=== PATIENT | female | born 1955 | race African-American/Black ===

== ENCOUNTER 2017-04-29 19:34 | Observation (INO) | payer OTHER ==
[~2017-04-29 19:34] MED LIST: ALPR0.25 PO; GABA300C3 PO; LANTUSP SQ; LISI10TA PO; METH750T2 PO; NOVOLOGP2 SQ; TYLE3 PO
[2017-04-29 19:37] VITALS: BP 178/81; PULSE 110; RESP 20; TEMP 98.3
[2017-04-29] MEDS ORDERED: HYDR12.57 PO (20:08)
[2017-04-29] MEDS ORDERED: CLON0.1D T-DERMAL (20:08)
[2017-04-29] MEDS ORDERED: METH750T PO (20:08)
[2017-04-29] MEDS ORDERED: MELO7.5T27 PO (20:08)
[2017-04-29] MEDS ORDERED: GABA300C5 PO (20:08)
[2017-04-29] MEDS ORDERED: NOVOLOGP2 SQ (20:08)
[2017-04-29] MEDS ORDERED: LANTUS2P SQ (20:08)
[2017-04-29] MEDS ORDERED: LISI40TA PO (20:08)
[2017-04-29] MEDS ORDERED: AMLO10TA2 PO (20:12)
[2017-04-29] MEDS ORDERED: FURO40TA PO (20:12)
[2017-04-29 20:20] VITALS: PULSE 106; O2SAT 98
[2017-04-29] MEDS ORDERED: RESP: IPRATROPIUM 0.5 MG/2.5 ML NEB NEB ONE (20:30)
[2017-04-29 20:43] LABS: AUTOMATED NEUTROPHIL # 5.1 TH/MM3 (1.8-7.7); BASOPHIL # 0.1 TH/MM3 (0-0.2); BASOPHIL % 0.9 % (0.0-2.0); EOSINOPHIL # 0.2 TH/MM3 (0-0.4); EOSINOPHIL % 2.7 % (0.0-4.0); HEMATOCRIT 32.6 % (35.0-46.0); HEMOGLOBIN 10.8 GM/DL (11.6-15.3); LYMPH % 24.7 % (9.0-44.0); LYMPHOCYTE # 1.9 TH/MM3 (1.0-4.8); MEAN CELL VOLUME 86.8 FL (80.0-100.0); MEAN CORPUSCULAR HEMOGLOBIN 28.7 PG (27.0-34.0); MEAN PLATELET VOLUME 8.1 FL (7.0-11.0); MONOCYTE # 0.6 TH/MM3 (0-0.9); NEUT % 63.7 % (16.0-70.0); PLATELET COUNT 320 TH/MM3 (150-450); RED BLOOD COUNT 3.76 MIL/MM3 (4.00-5.30); RED CELL DISTRIBUTION WIDTH 13.5 % (11.6-17.2); WHITE BLOOD COUNT 7.9 TH/MM3 (4.0-11.0)
[2017-04-29 20:55] LABS: CHLORIDE 109 MEQ/L (98-107); SODIUM (NA) 141 MEQ/L (136-145)
[2017-04-29 20:58] LABS: CALCIUM 8.6 MG/DL (8.5-10.1)
--- NOTE | 2017-04-29 20:58 | PD ---
HPI Chief Complaint: Respiratory Symptoms Time Seen by Provider: 19:54 Travel History International Travel<30 days: No Contact w/Intl Traveler<30days: No Traveled to known affect area: No History of Present Illness HPI Patient is a 61-year-old female who said for the last 2 weeks she has been having shortness of breath congestion blowing snot out of her nose Discrene feeling short of breath. She has not seen another doctor because recently she lost her [place] health insurance and now has at night and is scheduled to see a Dr. Ludwig coming up. She is a history of hypertension she is on lisinopril hydrochlorothiazide and furosemide she said she was changed back in January from the combination lisinopril hydrochlorothiazide to just lisinopril and Norvasc now she is having chronic venous stasis like fluid in her lower extremities bilateral in spite of the diuretics. She also is on insulin for diabetes she is on gabapentin for peripheral neuropathy in the ER her main complaint is shortness of breath she says it could be related to the stress she has been under since her mother last May now it is coming up on the year anniversary her sister is bedside she does not appear toxic she does not appear in respiratory distress she does not appear to have any signs of respiratory issues at this time satting 98 on room air [facility] Past Medical History Cardiovascular Problems: Yes (HTN) High Cholesterol: Yes COPD: Yes Diabetes: Yes Patient Takes Glucophage: No Diminished Hearing: No Endocrine: Yes Gastrointestinal Disorders: No Headaches: Yes Hypertension: Yes Immune Disorder: No Musculoskeletal: Yes Neurologic: Yes Respiratory: Yes Influenza Vaccination: Yes ?: Not Menopausal: Yes : 0 Past Surgical History Abdominal Surgery: Yes (PARTIAL HYSTERECTOMY) Gynecologic Surgery: Yes (EXP LAP) Hysterectomy: Yes (PARTIAL) Other Surgery: Yes Social History Alcohol Use: Yes (OCCASIONALLY) Tobacco Use: No Substance Use: No Allergies-Medications (Allergen,Severity, Reaction): Coded Allergies: insulin glargine (Unverified Adverse Reaction, Intermediate, Edema, 04/29/17 ) PT STATES NOT ANY REACTION & HER DR HAS PLACED HER BACK ON LANTUS WITH NO SIDE EFFECTS Reported Meds & Prescriptions Reported Meds & Active Scripts Active Reported Amlodipine (Amlodipine Besylate) 10 Mg Tab 10 Mg PO DAILY Furosemide 40 Mg Tab 40 Mg PO DAILY Clonidine 168 HR Patch (Clonidine HCl) 0.1 Mg/24 Hr Patch 1 Patch T-DERMAL Q7D Meloxicam 7.5 Mg Tab 7.5 Mg PO DAILY Methocarbamol 750 Mg Tab 750 Mg PO BID Hydrochlorothiazide 12.5 Mg Cap 12.5 Mg PO DAILY Lisinopril 40 Mg Tab 40 Mg PO DAILY Lantus Inj (Insulin Glargine) 1,000 Unit/10 Ml Vial 12 Units SQ HS Novolog Inj (Insulin Aspart) 1,000 Unit/10 Ml Vial 0 SQ DIRECTED Sliding Scale as directed. Gabapentin 300 Mg Cap 300 Mg PO HS Review of Systems Except as stated in HPI: all other systems reviewed are Neg Respiratory: Positive: Cough, Shortness of Breath, Other (Coughing up green mucus also snot coming from her nose is greenish) Physical Exam Narrative GENERAL: Patient is awake alert nontoxic appearing no signs of respiratory distress O2 sat is 98 SKIN: Warm and dry. HEAD: Atraumatic. Normocephalic. EYES: Pupils equal and round. No scleral icterus. No injection or drainage. ENT: No nasal bleeding or discharge. Mucous membranes pink and moist. NECK: Trachea midline. No JVD. CARDIOVASCULAR: slightly tachy rate and rhythm. RESPIRATORY: No accessory muscle use. Clear to auscultation. Breath sounds equal bilaterally. no rales no wheeze no crackle heard GASTROINTESTINAL: Abdomen soft, non-tender, nondistended. Hepatic and splenic margins not palpable. MUSCULOSKELETAL: Extremities without clubbing, cyanosis, or edema. No obvious deformities. NEUROLOGICAL: Awake and alert. No obvious cranial nerve deficits. Motor grossly within normal limits. Five out of 5 muscle strength in the arms and legs. Normal speech. PSYCHIATRIC: Appropriate mood and affect; insight and judgment normal. Data Data Last Documented VS Vital Signs Date Time Temp Pulse Resp B/P (MAP) Pulse Ox O2 Delivery O2 Flow Rate FiO2 04/29/17 22:20 105 18 155/80 (105) 98 Room Air 04/29/17 19:37 98.3 Orders Orders Complete Blood Count With Diff (04/29/17 20:23) Comprehensive Metabolic Panel (04/29/17 20:23) Lipase (04/29/17 20:23) Ua Includes Microscopic (04/29/17 20:23) Thyroid Stimulating Hormone (04/29/17 20:23) Chest, Pa & Lat (04/29/17 20:23) D-Dimer (04/29/17 20:23) Ipratropium Neb (Atrovent Neb) (04/29/17 20:30) Influenzae A/B Antigen (04/29/17 20:23) Group A Rapid Strep Screen (04/29/17 20:23) B-Type Natriuretic Peptide (04/29/17 20:49) Strep Culture (Group A) (04/29/17 20:20) Troponin I (04/29/17 20:40) Sodium Chlor 0.9% 250 Ml Inj (Ns 250 Ml (04/29/17 22:30) Furosemide Inj (Lasix Inj) (04/29/17 22:45) Ct Pulmonary Angiogram (04/29/17 ) Ketorolac Inj (Toradol Inj) (04/29/17 22:45) Iohexol 350 Inj (Omnipaque 350 Inj) (04/29/17 23:11) Labs Laboratory Tests Test 04/29/17 20:40 04/29/17 20:55 04/29/17 21:00 White Blood Count 7.9 TH/MM3 Red Blood Count 3.76 MIL/MM3 Hemoglobin 10.8 GM/DL Hematocrit 32.6 % Mean Corpuscular Volume 86.8 FL Mean Corpuscular Hemoglobin 28.7 PG Mean Corpuscular Hemoglobin Concent 33.0 % Red Cell Distribution Width 13.5 % Platelet Count 320 TH/MM3 Mean Platelet Volume 8.1 FL Neutrophils (%) (Auto) 63.7 % Lymphocytes (%) (Auto) 24.7 % Monocytes (%) (Auto) 8.0 % Eosinophils (%) (Auto) 2.7 % Basophils (%) (Auto) 0.9 % Neutrophils # (Auto) 5.1 TH/MM3 Lymphocytes # (Auto) 1.9 TH/MM3 Monocytes # (Auto) 0.6 TH/MM3 Eosinophils # (Auto) 0.2 TH/MM3 Basophils # (Auto) 0.1 TH/MM3 CBC Comment DIFF FINAL Differential Comment Blood Urea Nitrogen 19 MG/DL Creatinine 0.96 MG/DL Random Glucose 92 MG/DL Total Protein 6.9 GM/DL Albumin 2.6 GM/DL Calcium Level 8.6 MG/DL Alkaline Phosphatase 131 U/L Aspartate Amino Transf (AST/SGOT) 40 U/L Alanine Aminotransferase (ALT/SGPT) 52 U/L Total Bilirubin 0.2 MG/DL Sodium Level 141 MEQ/L Potassium Level 3.7 MEQ/L Chloride Level 109 MEQ/L Carbon Dioxide Level 23.8 MEQ/L Anion Gap 8 MEQ/L Estimat Glomerular Filtration Rate 72 ML/MIN Troponin I 0.02 NG/ML B-Type Natriuretic Peptide 41 PG/ML Lipase 145 U/L Thyroid Stimulating Hormone 3rd Gen 4.150 uIU/ML Urine Color YELLOW Urine Turbidity CLEAR Urine pH 5.5 Urine Specific [place] GREATER/EQUAL 1.030 Urine Protein 100 mg/dL Urine Glucose (UA) NEG mg/dL Urine Ketones NEG mg/dL Urine Occult Blood SMALL Urine Nitrite NEG Urine Bilirubin NEG Urine Urobilinogen 0.2 MG/DL Urine Leukocyte Esterase NEG Urine RBC 0-3 /hpf Urine WBC 6-8 /hpf Urine Squamous Epithelial Cells 0-5 /hpf Microscopic Urinalysis Comment CULT NOT INDICATED D-Dimer Quantitative (PE/DVT) 0.94 MG/L FEU MDM Medical Decision Making Medical Screen Exam Complete: Yes Emergency Medical Condition: Yes Differential Diagnosis Differential diagnosis includes bronchitis versus CHF versus COPD versus pneumonia versus anxiety versus asthma Narrative Course Chest x-ray shows bilateral lower lobe congestion she has a d-dimer that is elevated 0.94 and I do a CTA which shows areas of edema her white count is only 7.9 I decided this must be CHF even though her BNP is only 41 and decided to give her Lasix and I admit her for management of CHF CT is read as pulmonary edema patches and not pneumonia Diagnosis Primary Impression: Pulmonary edema Qualified Codes: J81.0 - Acute pulmonary edema Admitting Information Admitting Physician Requests: Observation Gregorio Dickson MD Apr 29, 2017 20:58
[2017-04-29 20:59] LABS: ALBUMIN 2.6 GM/DL (3.4-5.0); BICARBONATE 23.8 MEQ/L (21.0-32.0); BLOOD UREA NITROGEN 19 MG/DL (7-18); GLUCOSE,RANDOM 92 MG/DL (74-106)
[2017-04-29 21:01] LABS: ALT (GPT) 52 U/L (10-53); AST (GOT) 40 U/L (15-37)
[2017-04-29 21:02] LABS: CREATININE 0.96 MG/DL (0.50-1.00); GLOMERULAR FILTRATION RATE 72 ML/MIN (>89)
[2017-04-29 21:03] LABS: TOTAL BILIRUBIN ADULT 0.2 MG/DL (0.2-1.0); TOTAL PROTEIN 6.9 GM/DL (6.4-8.2)
[2017-04-29 21:04] LABS: ALKALINE PHOSPHATASE 131 U/L (45-117)
[2017-04-29 21:08] LABS: BILIRUBIN, URINE NEG (NEG); BLOOD, URINE SMALL (NEG); GLUCOSE,URINE NEG (NEG); KETONE, URINE NEG (NEG); NITRITE,URINE NEG (NEG); PH, URINE 5.5 (5.0-8.5); URINE COLOR YELLOW (YELLW/STRAW); URINE LEUKOCYTE ESTERASE NEG (NEG)
[2017-04-29 21:17] LABS: RBC, URINE 0-3 /hpf (0-3); SQUAMOUS EPITHELIAL CELL URINE 0-5 /hpf (0-5)
[2017-04-29 21:28] LABS: TROPONIN I 0.02 NG/ML (0.02-0.05)
--- NOTE | 2017-04-29 22:03 | RADRPT ---
EXAM DATE/TIME: 04/29/2017 20:40 [facility] COMPARISON: No previous studies available for comparison. INDICATIONS : Cough. Short of breath. MEDICAL HISTORY : Diabetes mellitus type II. Hypertension SURGICAL HISTORY : None. ENCOUNTER: Initial ACUITY: 2 days PAIN SCORE: 0/10 LOCATION: Bilateral chest FINDINGS: There are patchy areas of opacity in the central and lower lungs bilaterally causing loss of delineat ion of the bronchopulmonary markings suggesting an airspace process. Both hemidiaphragms are well de lineated. The heart is normal in size. CONCLUSION: Non-consolidative air space opacities in the central and lower lungs bilaterally suggest possible pul monary edema. aMrc Gonzales MD on April 29, 2017 at 22:01 Board Certified Radiologist. This report was verified electronically.
[2017-04-29 22:20] VITALS: BP 155/80; PULSE 105; RESP 18; O2SAT 98
[2017-04-29] MEDS ORDERED: SODIUM CHLOR 0.9% 250 ML INJ 250 ML IV ONE (22:30)
[2017-04-29] MEDS ORDERED: FUROSEMIDE 40 MG/4 ML VIAL IV PUSH ONE (22:45)
[2017-04-29] MEDS ORDERED: KETOROLAC TROMETHAMINE 30 MG/ML (IVP) VIAL IV PUSH ONE (22:45)
[2017-04-29] MEDS ORDERED: IOHEXOL 350 MG/ML 10 ML VIAL (for RAD DIAG) IVCONTRAST ONE (23:11)
--- NOTE | 2017-04-29 23:19 | RADRPT ---
EXAM DATE/TIME: 04/29/2017 22:58 [facility] COMPARISON: No previous studies available for comparison. INDICATIONS : Cough and shortness of breath X 3 days; rule out pulmonary embolus. IV CONTRAST: 73 cc Omnipaque 350 (iohexol) IV RADIATION DOSE: 13.32 CTDIvol (mGy) MEDICAL HISTORY : Hypertension. Chronic obstructive pulmonary disease. Diabetes mellitus type 1. SURGICAL HISTORY : Hysterectomy. ENCOUNTER: Initial ACUITY: 3 days PAIN SCALE: 3/10 LOCATION: chest TECHNIQUE: Volumetric scanning of the chest was performed using a pulmonary embolism protocol MIP images were re constructed. Using automated exposure control and adjustment of the mA and/or kV according to patien t size, radiation dose was kept as low as reasonably achievable to obtain optimal diagnostic quality images. DICOM format image data is available electronically for review and comparison. Follow-up recommendations for detected pulmonary nodules are based at a minimum on nodule size and pa tient risk factors according to Fleischner Society Guidelines. FINDINGS: PULMONARY ARTERIES: No filling defects are seen in the pulmonary arteries through the segmental level. LUNGS: Patchy areas of increased substance in the upper lobes bilaterally, the largest areas anterolateral i n the left upper lobe measuring 5.6 cm. There is also hazy increased substance in the lower lobes bi laterally stop non-consolidative infiltrates and the costophrenic angles bilaterally. PLEURAE: Moderate-sized right pleural effusion measuring 1.8 cm and small left 7 mm. MEDIASTINUM: There is good visualization of the great vessels of the middle mediastinum. No evidence of mediastin al or hilar adenopathy/mass. CONCLUSION: 1. Negative for pulmonary embolism. 2. Patchy areas of increased substance throughout both lungs and bilateral pleural effusions suggest pulmonary edema. Marc Gonzales MD on April 29, 2017 at 23:15 Board Certified Radiologist. This report was verified electronically.
[2017-04-30] VITALS (12 sets, daily range): BP systolic 136–159; BP diastolic 63–80; PULSE 93–119; RESP 17–20; TEMP 96.8–98.7; O2SAT 94–99
[2017-04-30] MEDS ORDERED: DEXTROSE 50% IN WATER 50 ML VIAL(D50) IV PUSH PRN (00:15)
[2017-04-30] MEDS ORDERED: RESP: ALBUTEROL 2.5 MG/IPRATROPIUM 0.5 MG NEB (PRN) INH (00:15)
[2017-04-30] MEDS ORDERED: GLUCAGON 1 MG/ML VIAL OTHER PRN (00:15)
[2017-04-30] MEDS ORDERED: cefTRIAXone INJ 1,000 MG in SODIUM CHLORIDE 0.9% INJ 100 ML IV SCH (00:15)
[2017-04-30] MEDS ORDERED: ACETAMINOPHEN 325 MG TAB PO PRN (00:15)
[2017-04-30] MEDS ORDERED: SODIUM CHLORIDE 0.9% FLUSH 10 ML FLUSH IV FLUSH PRN (00:15)
[2017-04-30] MEDS ORDERED: cloNIDine HCL 0.1 MG/24 HR PATCH T-DERMAL SCH (00:30)
[2017-04-30] MEDS ORDERED: AZITHROMYCIN INJ 500 MG in SODIUM CHLOR 0.9% 250 ML INJ 250 ML IV SCH (01:00)
[2017-04-30] MEDS: HEPARIN SODIUM - SQ 10,000 UNITS/ML VIAL SQ SCH ×3 (01:00→16:42)
[2017-04-30] MEDS: RESP: ALBUTEROL 2.5 MG/IPRATROPIUM 0.5 MG NEB (SCH) INH ×4 (04:30→20:31)
[2017-04-30] MEDS: INSULIN ASPART SUPPLEMENTAL SCALE SQ SCH ×4 (08:00→20:52)
[2017-04-30] MEDS: METHOCARBAMOL 500 MG TAB PO SCH ×2 (08:37→20:47)
[2017-04-30] MEDS: LISINOPRIL 20 MG TAB PO SCH (08:52)
[2017-04-30] MEDS: SODIUM CHLORIDE 0.9% FLUSH 10 ML FLUSH IV FLUSH SCH ×2 (08:53→20:47)
[2017-04-30] MEDS ORDERED: FUROSEMIDE 20 MG/2 ML VIAL IV PUSH SCH ×2 (09:00)
--- NOTE | 2017-04-30 09:28 | HHI.HP ---
HPI Service [facility] Primary Care Physician Shabbir Ludwig M.D. Admission Diagnosis pulmonary edema Diagnoses: Chief Complaint: Shortness of breath Travel History International Travel<30 Days: No Contact w/Intl Traveler <30 Da: No Traveled to Known Affected Are: No History of Present Illness Ms. Rivera is a pleasant 61-year-old -[place] female with history of diabetes mellitus, hypertension who presented to the emergency department on 04/30 due to shortness of breath, congestion that started about 2 weeks prior to this admission. She reports green colored sputum production. Subjective low -grade fever. Denies any abdominal pain, constipation or diarrhea. No changes in bladder habits. She denies any chest pain. On arrival, temperature 98.3F, pulse 110, respiratory rate 20, blood pressure 178/81. Chest x-ray and CT angiogram was done. Imaging studies indicate pulmonary edema. No pulmonary embolism. WBC 7.9, hemoglobin 10.8, platelets 320. BNP 41. Patient was given Lasix. Review of Systems Except as stated in HPI: all other systems reviewed are Neg Past Family Social History Past Medical History HTN, DM Past Surgical History Partial hysterectomy Reported Medications Amlodipine (Amlodipine Besylate) 10 Mg Tab 10 Mg PO DAILY Furosemide 40 Mg Tab 40 Mg PO DAILY Clonidine 168 HR Patch (Clonidine HCl) 0.1 Mg/24 Hr Patch 1 Patch T-DERMAL Q7D Meloxicam 7.5 Mg Tab 7.5 Mg PO DAILY Methocarbamol 750 Mg Tab 750 Mg PO BID Hydrochlorothiazide 12.5 Mg Cap 12.5 Mg PO DAILY Lisinopril 40 Mg Tab 40 Mg PO DAILY Lantus Inj (Insulin Glargine) 1,000 Unit/10 Ml Vial 12 Units SQ HS Novolog Inj (Insulin Aspart) 1,000 Unit/10 Ml Vial 0 SQ DIRECTED Sliding Scale as directed. Gabapentin 300 Mg Cap 300 Mg PO HS Allergies: Coded Allergies: insulin glargine (Unverified Adverse Reaction, Intermediate, Edema, 04/29/17 ) PT STATES NOT ANY REACTION & HER DR HAS PLACED HER BACK ON LANTUS WITH NO SIDE EFFECTS Family History Mother - HTN, heart disease Social History Does not smoke. Occasional drinker. Physical Exam Vital Signs Vital Signs Date Time Temp Pulse Resp B/P (MAP) Pulse Ox O2 Delivery O2 Flow Rate FiO2 04/30/17 09:04 94 21 04/30/17 07:45 04/30/17 06:59 98.7 100 17 159/80 (106) 99 Nasal Cannula 2.00 04/30/17 06:03 97.7 96 18 157/77 (103) 96 Nasal Cannula 2.00 04/30/17 06:03 96 Nasal Cannula 2.00 04/30/17 04:30 97 Nasal Cannula 2.00 04/30/17 01:14 98.6 108 136/71 (92) 95 Nasal Cannula 2.00 04/29/17 22:20 105 18 155/80 (105) 98 Room Air 04/29/17 20:41 Aerosol Mask 04/29/17 20:23 105 100 Room Air 04/29/17 20:20 106 98 Room Air 04/29/17 19:37 98.3 110 20 178/81 (113) Physical Exam GENERAL: This is a well-nourished, well-developed patient, in no apparent distress. SKIN: No rashes, ecchymoses or lesions. Warm and dry. HEAD: Atraumatic. Normocephalic. No temporal or scalp tenderness. EYES: Pupils equal round and reactive. No injection or drainage. ENT: Nose without bleeding, purulent drainage or septal hematoma. Airway patent. NECK: Trachea midline. No lymphadenopathy. Supple, nontender, no meningeal signs. CARDIOVASCULAR: Regular rhythm, tachycardic without murmurs, gallops, or rubs. No JVD. RESPIRATORY: Clear to auscultation. Breath sounds equal bilaterally. No wheezes , rales, or rhonchi. GASTROINTESTINAL: Abdomen soft, non-tender, nondistended. No guarding. MUSCULOSKELETAL: Extremities without clubbing, cyanosis, or edema. 1+ bilateral lower extremity edema. NEUROLOGICAL: Awake and alert. Cranial nerves II through XII intact. No focal neurological deficits. Normal speech. Laboratory Laboratory Tests Test 04/29/17 20:40 04/29/17 20:55 04/29/17 21:00 White Blood Count 7.9 Red Blood Count 3.76 Hemoglobin 10.8 Hematocrit 32.6 Mean Corpuscular Volume 86.8 Mean Corpuscular Hemoglobin 28.7 Mean Corpuscular Hemoglobin Concent 33.0 Red Cell Distribution Width 13.5 Platelet Count 320 Mean Platelet Volume 8.1 Neutrophils (%) (Auto) 63.7 Lymphocytes (%) (Auto) 24.7 Monocytes (%) (Auto) 8.0 Eosinophils (%) (Auto) 2.7 Basophils (%) (Auto) 0.9 Neutrophils # (Auto) 5.1 Lymphocytes # (Auto) 1.9 Monocytes # (Auto) 0.6 Eosinophils # (Auto) 0.2 Basophils # (Auto) 0.1 CBC Comment DIFF FINAL Differential Comment Blood Urea Nitrogen 19 Creatinine 0.96 Random Glucose 92 Total Protein 6.9 Albumin 2.6 Calcium Level 8.6 Alkaline Phosphatase 131 Aspartate Amino Transf (AST/SGOT) 40 Alanine Aminotransferase (ALT/SGPT) 52 Total Bilirubin 0.2 Sodium Level 141 Potassium Level 3.7 Chloride Level 109 Carbon Dioxide Level 23.8 Anion Gap 8 Estimat Glomerular Filtration Rate 72 Troponin I 0.02 B-Type Natriuretic Peptide 41 Lipase 145 Thyroid Stimulating Hormone 3rd Gen 4.150 Urine Color YELLOW Urine Turbidity CLEAR Urine pH 5.5 Urine Specific [place] GREATER/EQUAL 1.030 Urine Protein 100 Urine Glucose (UA) NEG Urine Ketones NEG Urine Occult Blood SMALL Urine Nitrite NEG Urine Bilirubin NEG Urine Urobilinogen 0.2 Urine Leukocyte Esterase NEG Urine RBC 0-3 Urine WBC 6-8 Urine Squamous Epithelial Cells 0-5 Microscopic Urinalysis Comment CULT NOT INDICATED D-Dimer Quantitative (PE/DVT) 0.94 Date/Time Source Procedure Growth Status 04/29/17 20:20 Throat Group A Streptococcus Screen Pending Received Result Diagram: 04/29/17203904/29/172039 Imaging Last Impressions Chest X-Ray 04/29/172022 Signed Impressions: Service Date/Time: Saturday, April 29, 2017 20:40 - CONCLUSION: Non-consolidative air space opacities in the central and lower lungs bilaterally suggest possible pulmonary edema. Marc Gonzales MD CT Angiography 04/29/17 0000 Signed Impressions: Service Date/Time: Saturday, April 29, 2017 22:58 - CONCLUSION: 1. Negative for pulmonary embolism. 2. Patchy areas of increased substance throughout both lungs and bilateral pleural effusions suggest pulmonary edema. MD Winston Jones VTE Risk Assessment Winston VTE Risk Assessment: Mod/High Risk (score >= 2) Josemanuelrini Risk Assessment Model Point Value = 1 Point Value = 2 Point Value = 3 Point Value = 5 Age 41-60 Minor surgery BMI > 25 kg/m2 Swollen legs Varicose veins or History of unexplained or recurrent spontaneous Oral contraceptives or hormone replacement Sepsis (< 1 month) Serious lung disease, including pneumonia (< 1 month) Abnormal pulmonary function Acute myocardial infarction Congestive heart failure (< 1 month) History of inflammatory bowel disease Medical patient at bed rest Age 61-74 Arthroscopic surgery Major open surgery (> 45 min) Laparoscopic surgery (> 45 min) Malignancy Confined to bed (> 72 hours) Immobilizing plaster cast Central venous access Age >= 75 History of VTE Family history of VTE Factor V Leiden Prothrombin [id number] Lupus anticoagulant Anticardiolipin antibodies Elevated serum homocysteine Heparin-induced thrombocytopenia Other congenital or acquired thrombophilia Stroke (< 1 month) Elective arthroplasty Hip, pelvis, or leg fracture Acute spinal cord injury (< 1 month) Prophylaxis Regimen Total Risk Factor Score Risk Level Prophylaxis Regimen 0-1 Low Early ambulation 2 Moderate Order ONE of the following: *Sequential Compression Device (SCD) *Heparin 5000 units SQ BID 3-4 Higher Order ONE of the following medications: *Heparin 5000 units SQ TID *Enoxaparin/Lovenox 40 mg SQ daily (WT < 150 kg, CrCl > 30 mL/min) *Enoxaparin/Lovenox 30 mg SQ daily (WT < 150 kg, CrCl > 10-29 mL/min) *Enoxaparin/Lovenox 30 mg SQ BID (WT < 150 kg, CrCl > 30 mL/min) AND/OR *Sequential Compression Device (SCD) 5 or more Highest Order ONE of the following medications: *Heparin 5000 units SQ TID (Preferred with Epidurals) *Enoxaparin/Lovenox 40 mg SQ daily (WT < 150 kg, CrCl > 30 mL/min) *Enoxaparin/Lovenox 30 mg SQ daily (WT < 150 kg, CrCl > 10-29 mL/min) *Enoxaparin/Lovenox 30 mg SQ BID (WT < 150 kg, CrCl > 30 mL/min) AND *Sequential Compression Device (SCD) Assessment and Plan Problem List: (1) Pulmonary edema ICD Code: J81.1 - Chronic pulmonary edema Status: Acute (2) Hypertension ICD Code: I10 - Essential (primary) hypertension (3) Diabetes mellitus ICD Code: E11.9 - Type 2 diabetes mellitus without complications Assessment and Plan Ms. Rivera is a pleasant 61-year-old -[place] female with a history of diabetes mellitus, hypertension who presented to the emergency department on 04/30 due to shortness of breath. Symptoms started 2 weeks ago. She does report some green colored sputum production. Low-grade subjective fever. ED workup indicated pulmonary edema. -Pulmonary edema -BNP 41. Pulmonary edema could be due to accelerated hypertension. -Patient received IV Lasix. We will switch her to p.o. torsemide. She received 40 mg of IV Lasix this morning. -Patient is currently on room air. Clinically she also reports improvement of her symptoms. -Possible pneumonia -patient was empirically started on IV azithromycin and ceftriaxone. It would be reasonable to continue Levaquin for total 7 days for suspected - Diabetes mellitus -continue home medication long-acting Levemir 12 units nightly, sliding scale insulin. Will add pre-meal insulin. - Hypertension -Continue amlodipine 10 mg daily, lisinopril 40 mg daily, torsemide 10 mg twice daily. -Currently normotensive. Full code. Heparin SQ. Discharge plan: Probable discharge in the AM 05/01/2017. Problem Qualifiers (1) Pulmonary edema: Qualified Codes: J81.0 - Acute pulmonary edema Carolyn Kelley DO Apr 30, 2017 9:28 am
[2017-04-30] MEDS ORDERED: LEVOFLOXACIN 750 MG TAB PO ONE (09:30)
--- NOTE | 2017-04-30 09:38 | HHI.PR ---
Objective Vitals Vital Signs Date Time Temp Pulse Resp B/P (MAP) Pulse Ox O2 Delivery O2 Flow Rate FiO2 04/30/17 09:04 94 21 04/30/17 07:50 96.9 93 20 156/74 (101) 96 04/30/17 07:45 04/30/17 06:59 98.7 100 17 159/80 (106) 99 Nasal Cannula 2.00 04/30/17 06:03 97.7 96 18 157/77 (103) 96 Nasal Cannula 2.00 04/30/17 06:03 96 Nasal Cannula 2.00 04/30/17 04:30 97 Nasal Cannula 2.00 04/30/17 01:14 98.6 108 136/71 (92) 95 Nasal Cannula 2.00 04/29/17 22:20 105 18 155/80 (105) 98 Room Air 04/29/17 20:41 Aerosol Mask 04/29/17 20:23 105 100 Room Air 04/29/17 20:20 106 98 Room Air 04/29/17 19:37 98.3 110 20 178/81 (113) I/O 04/29/17 04/29/17 04/29/17 04/30/17 04/30/17 04/30/17 07:00 15:00 23:00 07:00 15:00 23:00 Intake Total 250 ml 350 ml Output Total 2300 ml Balance 250 ml -1950 ml Intake IV Total 250 ml 350 ml Output Urine Total 2300 ml # Voids 5 # Bowel Movements 0 Result Diagram: 04/29/17203904/29/172039 Carolyn Kelley DO Apr 30, 2017 9:38 am
[2017-04-30] MEDS ORDERED: LEVA750T9 PO (11:32)
[2017-04-30] MEDS ORDERED: HYDROCHLOROTHIAZIDE 25 MG TAB PO ONE (11:45)
[2017-04-30] MEDS: INSULIN ASPART 1,000 UNITS/10 ML VIAL SQ SCH ×2 (12:00→16:42)
[2017-04-30] MEDS: TORSEMIDE 5 MG TAB PO SCH (17:36)
[2017-04-30] MEDS ORDERED: GABAPENTIN 300 MG CAP PO SCH (21:00)
[2017-04-30] MEDS ORDERED: INSULIN DETEMIR 100 UNITS/ML VIAL SQ SCH (21:00)
[2017-05-01] VITALS (7 sets, daily range): BP systolic 134–155; BP diastolic 66–93; PULSE 99–117; RESP 20; TEMP 96.1–98.1; O2SAT 97–99
[2017-05-01] MEDS: HEPARIN SODIUM - SQ 10,000 UNITS/ML VIAL SQ SCH ×3 (00:15→16:15)
[2017-05-01] MEDS: RESP: ALBUTEROL 2.5 MG/IPRATROPIUM 0.5 MG NEB (SCH) INH ×3 (02:37→14:44)
[2017-05-01 05:36] LABS: AUTOMATED NEUTROPHIL # 3.7 TH/MM3 (1.8-7.7); BASOPHIL % 0.4 % (0.0-2.0); EOSINOPHIL # 0.2 TH/MM3 (0-0.4); EOSINOPHIL % 2.8 % (0.0-4.0); HEMATOCRIT 32.4 % (35.0-46.0); LYMPH % 29.7 % (9.0-44.0); MEAN CORPUSCULAR HEMOGLOBIN 29.6 PG (27.0-34.0); MEAN CORPUSCULAR HGB CONC 34.1 % (32.0-36.0); MEAN PLATELET VOLUME 8.2 FL (7.0-11.0); MONO % 10.1 % (0.0-8.0); MONOCYTE # 0.7 TH/MM3 (0-0.9); PLATELET COUNT 320 TH/MM3 (150-450); RED BLOOD COUNT 3.72 MIL/MM3 (4.00-5.30); RED CELL DISTRIBUTION WIDTH 13.8 % (11.6-17.2); WHITE BLOOD COUNT 6.6 TH/MM3 (4.0-11.0)
[2017-05-01 05:47] LABS: BICARBONATE 28.3 MEQ/L (21.0-32.0); CALCIUM 8.7 MG/DL (8.5-10.1)
[2017-05-01 05:51] LABS: CREATININE 1.2 MG/DL (0.50-1.00)
[2017-05-01] MEDS: INSULIN ASPART SUPPLEMENTAL SCALE SQ SCH ×3 (07:56→17:29)
[2017-05-01] MEDS: INSULIN ASPART 1,000 UNITS/10 ML VIAL SQ SCH ×3 (07:56→17:29)
[2017-05-01] MEDS ORDERED: HYDROCHLOROTHIAZIDE 25 MG TAB PO SCH (09:00)
[2017-05-01] MEDS: TORSEMIDE 5 MG TAB PO SCH (09:33)
[2017-05-01] MEDS: SODIUM CHLORIDE 0.9% FLUSH 10 ML FLUSH IV FLUSH SCH (09:33)
[2017-05-01] MEDS: METHOCARBAMOL 500 MG TAB PO SCH (09:34)
[2017-05-01] MEDS: LISINOPRIL 20 MG TAB PO SCH (09:34)
[2017-05-01] MEDS ORDERED: POTASSIUM CHLORIDE 10 MEQ CONTROLLED RELEASE TAB PO ONE (10:00)
[2017-05-01] MEDS ORDERED: LEVOFLOXACIN 750 MG TAB PO SCH (11:00)
--- NOTE | 2017-05-01 11:08 | HHI.PR ---
Subjective Remarks Follow-up pulmonary edema and possible pneumonia. Patient seen and examined, sitting up on side of bed comfortably. Symptoms have completely improved. Denies any dyspnea. Does state that her leg edema has improved but is still present. Has been eating well, denies any abdominal pain, nausea or vomiting. Vital signs are stable. Blood pressure well improved and controlled. Objective Vitals Vital Signs Date Time Temp Pulse Resp B/P (MAP) Pulse Ox O2 Delivery O2 Flow Rate FiO2 05/01/17 08:10 98 21 05/01/17 07:50 96.1 99 20 134/68 (90) 99 05/01/17 04:00 98.0 103 20 137/66 (89) 99 05/01/17 00:00 98.1 112 20 155/93 (113) 98 04/30/17 23:00 98 04/30/17 20:30 98 Nasal Cannula 2.00 04/30/17 20:00 98.6 119 20 157/63 (94) 97 04/30/17 16:05 98 Nasal Cannula 2.00 04/30/17 15:50 98.1 111 20 138/66 (90) 96 04/30/17 11:57 96.8 106 20 143/71 (95) 98 I/O 04/30/17 04/30/17 04/30/17 05/01/17 05/01/17 05/01/17 07:00 15:00 23:00 07:00 15:00 23:00 Intake Total 350 ml 1190 ml 240 ml Output Total 2300 ml Balance -1950 ml 1190 ml 240 ml Intake Oral 1190 ml 240 ml IV Total 350 ml Output Urine Total 2300 ml # Voids 5 3 3 # Bowel Movements 0 0 0 Result Diagram: 05/01/172 05/01/17 0452 Imaging Last Impressions Chest X-Ray 04/29/172022 Signed Impressions: Service Date/Time: Saturday, April 29, 2017 20:40 - CONCLUSION: Non-consolidative air space opacities in the central and lower lungs bilaterally suggest possible pulmonary edema. Marc Gonzales MD CT Angiography 04/29/17 0000 Signed Impressions: Service Date/Time: Saturday, April 29, 2017 22:58 - CONCLUSION: 1. Negative for pulmonary embolism. 2. Patchy areas of increased substance throughout both lungs and bilateral pleural effusions suggest pulmonary edema. Marc Gonzales MD Objective Remarks GENERAL: Well-developed, well-nourished patient in NAD. SKIN: Warm and dry. No rash. HEAD: Normocephalic. Atraumatic. EYES: Pupils equal and round. No scleral icterus. No injection or drainage. ENT: No nasal bleeding or discharge. Mucous membranes pink and moist. NECK: Supple. Trachea midline. CARDIOVASCULAR: Regular rate and rhythm. S1, S2 noted. No murmur appreciated. RESPIRATORY: No accessory muscle use. Clear to auscultation. Breath sounds equal bilaterally. GASTROINTESTINAL: Abdomen soft, non-tender, nondistended. Normoactive bowel sounds x4. MUSCULOSKELETAL: Bilateral lower extremity edema, 1+ pitting. NEUROLOGICAL: Awake and alert. No obvious cranial nerve deficits. Motor grossly within normal limits. 5/5 muscle strength in bilateral upper and lower extremities. Normal speech. PSYCHIATRIC: Appropriate mood and affect; insight and judgment normal. A/P Problem List: (1) Pulmonary edema ICD Code: J81.1 - Chronic pulmonary edema Status: Acute (2) Hypertension ICD Code: I10 - Essential (primary) hypertension (3) Diabetes mellitus ICD Code: E11.9 - Type 2 diabetes mellitus without complications Assessment and Plan Ms. Rivera is a pleasant 61-year-old -Mexican female with a history of diabetes mellitus, hypertension who presented to the emergency department on 04/30 due to shortness of breath. Symptoms started 2 weeks ago. She does report some green colored sputum production. Low-grade subjective fever. ED workup indicated pulmonary edema. -Pulmonary edema -BNP 41. Pulmonary edema could be due to accelerated hypertension. -Patient received IV Lasix. We will switch her to p.o. torsemide. -Patient is currently on room air. Clinically she also reports improvement of her symptoms. -Possible pneumonia -patient was empirically started on IV azithromycin and ceftriaxone. It would be reasonable to continue Levaquin for a total of 3 pills for suspected, continue on discharge. - Diabetes mellitus -continue home medication long-acting Levemir 12 units nightly, sliding scale insulin. Added pre-meal insulin. Blood sugars more controlled. - Hypertension -Continue amlodipine 10 mg daily, lisinopril 40 mg daily, torsemide 10 mg twice daily. -Currently normotensive. Full code. Heparin SQ. Discharge Planning We will discharge home today. Recommendations follow-up with PCP. Continue medications as ordered. Problem Qualifiers (1) Pulmonary edema: Qualified Codes: J81.0 - Acute pulmonary edema Amalia Doherty May 01, 2017 11:08
[2017-05-01] MEDS ORDERED: LEVA750T9 PO (12:11)
[2017-05-01] MEDS ORDERED: NOVOLOGP2 SQ (12:12)
--- NOTE | 2017-05-01 12:13 | HHI.DCPOC ---
Discharge Care Plan Diagnosis: (1) Diabetes mellitus (2) Hypertension (3) Pulmonary edema Goals to Promote Your Health * To prevent worsening of your condition and complications * To maintain your health at the optimal level Directions to Meet Your Goals Take your medications as prescribed Follow your dietary instruction Follow activity as directed Keep your appointments as scheduled Take your immunizations and boosters as scheduled If your symptoms worsen call your PCP, if no PCP go to Urgent Care Center or Emergency Room Smoking is Dangerous to Your Health. Avoid second hand smoke Call the 24-hour hour crisis hotline for domestic abuse at Amalia Doherty May 01, 2017 12:13
[2017-05-01] MEDS ORDERED: HYDR25TA5 PO (12:15)
[2017-05-01] MEDS ORDERED: TORS5TAB2 PO (12:15)
[2017-05-01] MEDS ORDERED: Eucerin Cream TOPICAL (12:17)
[2017-05-01] MEDS ORDERED: EUCERIN CREAM 120 GM JAR TOPICAL PRN (13:00)
[2017-05-03] MEDS ORDERED: LEVOFLOXACIN 750 MG TAB PO SCH (11:00)
== END 2017-05-01 17:45 | disposition home or self-care (01) ==
LOC: PHED 19:34 → PHEDA 04-30 00:10 → PHEDH 04-30 04:10 → PH3B 04-30 07:50
PROVIDERS: ADMIT Hospitalist; ATTEND Hospitalist
DX: J81.1 Chronic pulmonary edema (principal); I11.0 Hypertensive heart disease with heart failure; I50.9 Heart failure, unspecified; E78.00 Pure hypercholesterolemia, unspecified; E10.42 Type 1 diabetes mellitus with diabetic polyneuropathy; I87.8 Other specified disorders of veins; J44.9 Chronic obstructive pulmonary disease, unspecified; Z79.899 Other long term (current) drug therapy; Z79.4 Long term (current) use of insulin
CPT/HCPCS: 71046; 71275; 80048; 80053; 81001; 82948; 83690; 83880; 84443; 84484; 85025; 85379; 87081; 87804; 87880; 94640; 94664; 96365; 96372; 96375; 99285; G0378; J0456; J0696; J1644; J1815; J1885; J1940; J7050; J7644; Q9967

== ENCOUNTER 2017-10-01 15:46 | Inpatient (IN) ==
[2017-10-01] MEDS ORDERED: Sod Chloride 0.9% Inj 2,000 ML IV.SIG ONE ×2 (15:53→18:53)
[2017-10-01 15:56] LABS: VBG Base Excess -25.4 mmol/L (-2-2); VBG Blood Gas Oxygen Content 13.4 Vol % (9.0-17.0); VBG PCO2 10 mmHG (44-48); VBG PO2 75 mmHG (35-40)
[2017-10-01 16:20] LABS: Baso % (Auto) 0.3 % (0.0-2.0); Eos % (Auto) 0.3 % (0.0-4.0); Hematocrit 38.9 % (35.0-46.0); Hemoglobin 11.1 gm/dL (11.6-15.3); Lymph # (Auto) 1.5 th/mm3 (1.0-4.8); Lymph % (Auto) 10.2 % (9.0-44.0); Mean Corpuscular Hemoglobin 30.4 pg (27.0-34.0); Mean Corpuscular Volume 106.1 fL (80.0-100.0); Mean Platelet Volume 9.7 fL (7.0-11.0); Mono % (Auto) 6.9 % (0.0-8.0); Neut # (Auto) 12.1 th/mm3 (1.8-7.7); Neut % (Auto) 82.3 % (16.0-70.0); Platelet Count 286 th/mm3 (150-450); Red Blood Count 3.67 mil/mm3 (4.00-5.30); Red Cell Distribution Width 16.1 % (11.6-17.2); White Blood Count 14.7 th/mm3 (4.0-11.0)
--- NOTE | 2017-10-01 16:32 | XR ---
EXAM DATE: 10/01/2017 4:18 PM EDT AGE/SEX: 62 years / Female INDICATIONS: Shortness of breath CLINICAL DATA: This is the patient's initial encounter. Patient reports that signs and symptoms have been present for 1 day and indicates a pain score of Nonresponsive. MEDICAL/SURGICAL HISTORY: . Diabetes mellitus type II. Hypertension None. COMPARISON: [facility], XR CHEST PA AND LAT, 07/31/2017. . FINDINGS: A single AP view of the chest demonstrates the lungs to be symmetrically aerated without evidence of mass, infiltrate or effusion. The cardiomediastinal contours are unremarkable. Osseous structures a re intact. CONCLUSION: Negative examination. Electronically signed by: Devendra Rya MD 10/01/2017 4:31 PM EDT
[2017-10-01 16:37] LABS: Bacteria,Urine Occasional /hpf; Bilirubin,Urine Negative (Negative); Clarity,Urine Clear (Clear); Color,Urine Straw (Yellw/Straw); Glucose,Urine (UA) 500 or Greater mg/dL (Negative); Leukocyte Esterase,Urine Negative (Negative); Nitrite,Urine Negative (Negative); Squamous Epithelial Cell,Urine <1 /hpf (0-5)
[2017-10-01 16:39] LABS: INR 1.1 Ratio
[2017-10-01 17:02] LABS: Mean Corpuscular HGB Conc 28.6 % (32.0-36.0)
[2017-10-01 17:10] LABS: Alanine Aminotransferase 34 U/L (10-53); Albumin 3.2 g/dL (3.4-5.0); Alkaline Phosphatase 103 U/L (45-117); Anion Gap 34 meq/L (5-15); Aspartate Aminotransferase 60 U/L (15-37); Blood Urea Nitrogen 37 mg/dL (7-18); Chloride 99 meq/L (98-107); Glomerular Filtration Rate 28 mL/min (>89); Magnesium 2.3 mg/dL (1.5-2.5); Phosphorus 9.4 mg/dL (2.5-4.9); Sodium 138 meq/L (136-145)
[2017-10-01 17:12] LABS: Potassium 6.1 meq/L (3.5-5.1)
--- NOTE | 2017-10-01 17:12 | CT ---
EXAM DATE: 10/01/2017 5:07 PM EDT AGE/SEX: 62 years / Female INDICATIONS: Confusion CLINICAL DATA: This is the patient's initial encounter. Patient reports that signs and symptoms have been present for 1 day and indicates a pain score of Nonresponsive. MEDICAL/SURGICAL HISTORY: Diabetes. Hypertension. None. RADIATION DOSE: 36.22 CTDI (mGy) COMPARISON: [facility], CT BRAIN W/O CONTRAST, 03/03/2014. . TECHNIQUE: CT of the head without contrast. Using automated exposure control and adjustment of the mA and/or kV according to patient size, radiation dose was kept as low as reasonably achievable to ob tain optimal diagnostic quality images. DICOM format image data is available electronically for revi ew and comparison. FINDINGS: Cerebrum: The ventricles are normal for age. No evidence of midline shift, mass lesion, hemorrhage or acute infarction. No extraaxial fluid collections are seen. Posterior Fossa: The cerebellum and brainstem are intact. The 4th ventricle is midline. The cerebe llopontine angle is unremarkable. Extracranial: The visualized portion of the orbits is intact. Skull: The calvaria is intact. No evidence of skull fracture. CONCLUSION: 1. Negative CT Head non contrast. . Electronically signed by: Marc Soni MD 10/01/2017 5:11 PM EDT
[2017-10-01 17:14] LABS: Glucose,Random 1032 mg/dL (74-106)
[2017-10-01] MEDS ORDERED: Potassium Chlor 20 mEq Premix 20 MEQ/100 ML PIGGYBACK IV.SIG PRN ×12 (17:16→18:16)
[2017-10-01] MEDS ORDERED: Insulin Regular (For Infusion) 100 UNIT in Sodium Chlor 0.9% Inj 99 ML IV.CONT PRN (17:16)
[2017-10-01] MEDS ORDERED: Potassium Chlor 40 mEq Premix 40 MEQ/100 ML PIGGYBACK IV.SIG PRN ×4 (17:16→18:16)
[2017-10-01] MEDS ORDERED: Sodium Phosphate Inj 15 MMOL in Sodium Chlor 0.9% Inj 100 ML IV.SIG PRN ×2 (17:16→18:16)
[2017-10-01] MEDS ORDERED: Sod Chloride 0.9% Inj 1,000 ML IV.CONT SCH ×2 (17:30→18:30)
[2017-10-01] MEDS ORDERED: Dextrose 5%/NaCl 0.9% Inj 1,000 ML IV.CONT SCH (17:30)
--- NOTE | 2017-10-01 17:42 | ED ---
HPI General Chief complaint: Altered Mental Status Stated complaint: vomiting Time Seen by Provider: 10/01/17 15:52 Source: family, EMS, RN notes reviewed and old records reviewed Mode of arrival: EMS Limitations: altered mental status History of Present Illness HPI narrative: 62yF brought in by EMS for unresponsiveness. The patient has a history of insulin dependent diabetes, and as per her sister has "not been feeling well and vomiting" for the past 2 days. She says that the patient looked tired and dehydrated this morning, but when she came back from shopping this afternoon she found her on the floor unresponsive. EMS reports that the patient's glucose read "high" on their glucometer. Sister reports no history of DKA in the past. The patient is altered and unable to provide meaningful contribution to HPI or ROS. Related Data Home Medications Medication Instructions Recorded Confirmed amlodipine 10 mg PO DAILY 10/01/17 10/01/17 escitalopram oxalate [Lexapro] 5 mg PO DAILY 10/01/17 10/01/17 hydrochlorothiazide 25 mg PO QAM 10/01/17 10/01/17 insulin aspart U-100 10/01/17 10/01/17 lisinopril 40 mg PO DAILY 10/01/17 10/01/17 metoprolol tartrate 50 mg PO BID 10/01/17 10/01/17 semaglutide [Ozempic] 1 mg SUB-Q QWEEK 10/01/17 10/01/17 Allergies Allergy/AdvReac Type Severity Reaction Status Date / Time insulin glargine AdvReac Intermediate Edema Verified 10/01/17 16:24 Review of Systems ROS Unobtainable ROS Unobtainable: unobtainable due to mental status [facility] Medical History Medical History Diabetes (Acute) Hyperlipidemia (Acute) Hypertension (Acute) Social History Social History Substance History: No History of Abuse Smoking Status: Never smoker How Often Do You Have a Drink Containing Alcohol: Monthly or less Recent Travel in [facility] [place] within the Last 8 Weeks: No Recent Out of Country Travel within the Last 8 Weeks: No Immunization History Tetanus Immunization: Unsure Hx Influenza Vaccine This Season: Unable to Assess Exam Const Other: Ill-appearing, moderate distress HENMT Other: Mucosa dry Eyes Other: Pupils 3 mm and sluggishly reactive bilaterally Resp Other: Deep rapid respirations at 40 breaths per minute on arrival O2 sats high 90s on room air Lungs clear Cardio Rate: tachycardic Rhythm: regular rhythm GI Other: Soft, no guarding or rebound Neuro Other: GCS 10 ([id number]), unable to follow any commands, able to handle secretions and protecting airway Course Initial Documented Vital Signs Temperature 99.4 F 10/01/17 15:49 Pulse Rate 138 H 10/01/17 15:49 Respiratory Rate 34 H 10/01/17 15:49 Blood Pressure 128/60 10/01/17 15:49 Pulse Oximetry 99 10/01/17 15:49 Last Documented Vital Signs Temperature 99.4 F 10/01/17 15:49 Pulse Rate 126 H 10/01/17 17:52 Respiratory Rate 18 10/01/17 17:52 Blood Pressure 110/52 L 10/01/17 17:52 Pulse Oximetry 100 10/01/17 17:52 Critical Care Time Critical Care Time: Yes Total Critical Care Time: 35 Attestation: Total critical care time 35 minutes. This includes examining and stabilizing the patient, gathering a history from a source other than the patient (i.e., chart review, EMS, patient's sister), formulating a differential diagnosis, ordering and interpreting laboratory tests and EKG, ordering and interpreting radiology tests, discussing the patient's care with other providers ([facility]), initiation and management of insulin drip, and documentation. Amount of time is separate from teaching, counseling the patient and/or family, and exclusive of procedures. Medical Decision Making MDM Narrative Medical decision making narrative: Assessment: 62yF presenting with altered mental status Plan: EKG and monitor Aggressive IV fluids FSBG, VBG Labs CXR [place], UA and culture CTH Addendum: Patient found to be in severe DKA with lactic acidosis. I spoke at length with the patient's sister and updated her on the severity of the patient' s condition and plan to keep her in the [facility]. She understands and agrees. Case discussed with Dr. Jeffrey. Differential Diagnosis Differential Diagnosis: Differential diagnosis includes, but is not limited to: DKA, HHNK, ICH, dehydration, electrolyte abnormality, pneumonia, UTI/ pyelonephritis Medical Records Medical records reviewed: Yes I reviewed the patient's medical records. Lab Data Lab results reviewed: Yes I reviewed the patient's lab results. Result diagrams: 10/01/17 16:05 10/01/17 16:05 Lab Results 10/01/17 10/01/17 10/01/17 Range/Units 15:45 16:05 16:05 WBC 14.7 H (4.0-11.0) th/mm3 RBC 3.67 L (4.00-5.30) mil/mm3 Hgb 11.1 L (11.6-15.3) gm/dL Hct 38.9 (35.0-46.0) % MCV 106.1 H (80.0-100.0) fL MCH 30.4 (27.0-34.0) pg MCHC 28.6 L (32.0-36.0) % RDW 16.1 (11.6-17.2) % Plt Count 286 (150-450) th/mm3 MPV 9.7 (7.0-11.0) fL Prelim Diff (Auto) Slide review pending Neut % (Auto) 82.3 H (16.0-70.0) % Lymph % (Auto) 10.2 (9.0-44.0) % [place] % (Auto) 6.9 (0.0-8.0) % Eos % (Auto) 0.3 (0.0-4.0) % Baso % (Auto) 0.3 (0.0-2.0) % Neut # (Auto) 12.1 H (1.8-7.7) th/mm3 Lymph # (Auto) 1.5 (1.0-4.8) th/mm3 [place] # (Auto) 1.0 H (0.0-0.9) th/mm3 Eos # (Auto) 0.0 (0.0-0.4) th/mm3 Baso # (Auto) 0.0 (0.0-0.2) th/mm3 WBC Differential Manual diff final Seg Neuts % (Manual) 85 H (16-70) % Band Neuts % (Manual) 1 (0-6) % Lymphocytes % (Manual) 7 L (9-44) % Monocytes % (Manual) 2 (0-8) % Basophils % (Manual) 1 (0-2) % Metamyelocytes % (Man) 3 H (0-1) % Myelocytes % (Man) 1 H (0-0) % Abs Neuts (Manual) 13.2 H (1.8-7.7) th/mm3 Differential Comment . Toxic Granulation 2+ H (None) Toxic Vacuolation Present H (None) Platelet Estimate Normal (Normal) Platelet Morphology Normal (Normal) PT (9.8-11.6) sec INR Ratio Puncture Site Iv Patient Temperature 98.6 VBG pH 7.10 L* (7.360-7.400) VBG pCO2 10 L* (44-48) mmHG VBG pO2 75 H (35-40) mmHG VBG HCO3 3 L* (22-26) mmol/L VBG O2 Saturation 86 H (70-76) % VBG O2 Content 13.4 (9.0-17.0) Vol % VBG Base Excess -25.4 L (-2-2) mmol/L VBG Carboxyhemoglobin 1.7 (0-4) % VBG Methemoglobin 1.0 (0-2) % Hemoglobin 11.1 L (12.0-16.0) G/DL O2 Delivery Device Ra Inspired O2 21 % Critical Value Yes Sodium 138 (136-145) meq/L Potassium 6.1 H (3.5-5.1) meq/L Chloride 99 (98-107) meq/L Carbon Dioxide Less than 5.0 L (21.0-32.0) meq/L Anion Gap 34 H (5-15) meq/L BUN 37 H (7-18) mg/dL Creatinine 2.19 H (0.50-1.00) mg/dL Estimated GFR 28 L (>89) mL/min Random Glucose 1032 H* (74-106) mg/dL Lactic Acid (0.4-2.0) mmol/L Calcium 9.0 (8.5-10.1) mg/dL Phosphorus 9.4 H (2.5-4.9) mg/dL Magnesium 2.3 (1.5-2.5) mg/dL Total Bilirubin 0.7 (0.2-1.0) mg/dL AST 60 H (15-37) U/L ALT 34 (10-53) U/L Alkaline Phosphatase 103 (45-117) U/L Ammonia (11-32) mcmol/L Troponin I (0.02-0.05) ng/mL Total Protein 7.0 (6.4-8.2) g/dL Albumin 3.2 L (3.4-5.0) g/dL Urine Color (Yellw/Straw) Urine Clarity (Clear) Urine pH (5.0-8.5) Ur Specific [place] (1.002-1.035) Urine Protein (Neg-Trace) mg/dL Urine Glucose (UA) (Negative) mg/dL Urine Ketones (Negative) mg/dL Urine Occult Blood (Negative) Urine Nitrate (Negative) Urine Bilirubin (Negative) Urine Urobilinogen (Less than 2) mg/dL Ur Leukocyte Esterase (Negative) Urine RBC (0-3) /hpf Urine WBC (0-5) /hpf Ur Squamous Epith Cells (0-5) /hpf Urine Bacteria (None) /hpf Micro UA Comment Urine Culture Comments 10/01/17 10/01/17 10/01/17 Range/Units 16:05 16:05 16:07 WBC (4.0-11.0) th/mm3 RBC (4.00-5.30) mil/mm3 Hgb (11.6-15.3) gm/dL Hct (35.0-46.0) % MCV (80.0-100.0) fL MCH (27.0-34.0) pg MCHC (32.0-36.0) % RDW (11.6-17.2) % Plt Count (150-450) th/mm3 MPV (7.0-11.0) fL Prelim Diff (Auto) Neut % (Auto) (16.0-70.0) % Lymph % (Auto) (9.0-44.0) % [place] % (Auto) (0.0-8.0) % Eos % (Auto) (0.0-4.0) % Baso % (Auto) (0.0-2.0) % Neut # (Auto) (1.8-7.7) th/mm3 Lymph # (Auto) (1.0-4.8) th/mm3 [place] # (Auto) (0.0-0.9) th/mm3 Eos # (Auto) (0.0-0.4) th/mm3 Baso # (Auto) (0.0-0.2) th/mm3 WBC Differential Seg Neuts % (Manual) (16-70) % Band Neuts % (Manual) (0-6) % Lymphocytes % (Manual) (9-44) % Monocytes % (Manual) (0-8) % Basophils % (Manual) (0-2) % Metamyelocytes % (Man) (0-1) % Myelocytes % (Man) (0-0) % Abs Neuts (Manual) (1.8-7.7) th/mm3 Differential Comment Toxic Granulation (None) Toxic Vacuolation (None) Platelet Estimate (Normal) Platelet Morphology (Normal) PT 11.0 (9.8-11.6) sec INR 1.1 Ratio Puncture Site Patient Temperature VBG pH (7.360-7.400) VBG pCO2 (44-48) mmHG VBG pO2 (35-40) mmHG VBG HCO3 (22-26) mmol/L VBG O2 Saturation (70-76) % VBG O2 Content (9.0-17.0) Vol % VBG Base Excess (-2-2) mmol/L VBG Carboxyhemoglobin (0-4) % VBG Methemoglobin (0-2) % Hemoglobin (12.0-16.0) G/DL O2 Delivery Device Inspired O2 % Critical Value Sodium (136-145) meq/L Potassium (3.5-5.1) meq/L Chloride (98-107) meq/L Carbon Dioxide (21.0-32.0) meq/L Anion Gap (5-15) meq/L BUN (7-18) mg/dL Creatinine (0.50-1.00) mg/dL Estimated GFR (>89) mL/min Random Glucose (74-106) mg/dL Lactic Acid (0.4-2.0) mmol/L Calcium (8.5-10.1) mg/dL Phosphorus (2.5-4.9) mg/dL Magnesium (1.5-2.5) mg/dL Total Bilirubin (0.2-1.0) mg/dL AST (15-37) U/L ALT (10-53) U/L Alkaline Phosphatase (45-117) U/L Ammonia (11-32) mcmol/L Troponin I Less than 0.02 L (0.02-0.05) ng/mL Total Protein (6.4-8.2) g/dL Albumin (3.4-5.0) g/dL Urine Color Straw (Yellw/Straw) Urine Clarity Clear (Clear) Urine pH 5.0 (5.0-8.5) Ur Specific [place] 1.020 (1.002-1.035) Urine Protein Negative (Neg-Trace) mg/dL Urine Glucose (UA) 500 or greater (Negative) mg/dL Urine Ketones 80 or greater (Negative) mg/dL Urine Occult Blood Negative (Negative) Urine Nitrate Negative (Negative) Urine Bilirubin Negative (Negative) Urine Urobilinogen Less than 2 (Less than 2) mg/dL Ur Leukocyte Esterase Negative (Negative) Urine RBC 1 (0-3) /hpf Urine WBC Less than 1 (0-5) /hpf Ur Squamous Epith Cells <1 (0-5) /hpf Urine Bacteria Occasional H (None) /hpf Micro UA Comment Cath-culture ind Urine Culture Comments Cath-cult indicated 10/01/17 10/01/17 Range/Units 17:00 17:00 WBC (4.0-11.0) th/mm3 RBC (4.00-5.30) mil/mm3 Hgb (11.6-15.3) gm/dL Hct (35.0-46.0) % MCV (80.0-100.0) fL MCH (27.0-34.0) pg MCHC (32.0-36.0) % RDW (11.6-17.2) % Plt Count (150-450) th/mm3 MPV (7.0-11.0) fL Prelim Diff (Auto) Neut % (Auto) (16.0-70.0) % Lymph % (Auto) (9.0-44.0) % [place] % (Auto) (0.0-8.0) % Eos % (Auto) (0.0-4.0) % Baso % (Auto) (0.0-2.0) % Neut # (Auto) (1.8-7.7) th/mm3 Lymph # (Auto) (1.0-4.8) th/mm3 [place] # (Auto) (0.0-0.9) th/mm3 Eos # (Auto) (0.0-0.4) th/mm3 Baso # (Auto) (0.0-0.2) th/mm3 WBC Differential Seg Neuts % (Manual) (16-70) % Band Neuts % (Manual) (0-6) % Lymphocytes % (Manual) (9-44) % Monocytes % (Manual) (0-8) % Basophils % (Manual) (0-2) % Metamyelocytes % (Man) (0-1) % Myelocytes % (Man) (0-0) % Abs Neuts (Manual) (1.8-7.7) th/mm3 Differential Comment Toxic Granulation (None) Toxic Vacuolation (None) Platelet Estimate (Normal) Platelet Morphology (Normal) PT (9.8-11.6) sec INR Ratio Puncture Site Patient Temperature VBG pH (7.360-7.400) VBG pCO2 (44-48) mmHG VBG pO2 (35-40) mmHG VBG HCO3 (22-26) mmol/L VBG O2 Saturation (70-76) % VBG O2 Content (9.0-17.0) Vol % VBG Base Excess (-2-2) mmol/L VBG Carboxyhemoglobin (0-4) % VBG Methemoglobin (0-2) % Hemoglobin (12.0-16.0) G/DL O2 Delivery Device Inspired O2 % Critical Value Sodium (136-145) meq/L Potassium (3.5-5.1) meq/L Chloride (98-107) meq/L Carbon Dioxide (21.0-32.0) meq/L Anion Gap (5-15) meq/L BUN (7-18) mg/dL Creatinine (0.50-1.00) mg/dL Estimated GFR (>89) mL/min Random Glucose (74-106) mg/dL Lactic Acid 8.6 H* (0.4-2.0) mmol/L Calcium (8.5-10.1) mg/dL Phosphorus (2.5-4.9) mg/dL Magnesium (1.5-2.5) mg/dL Total Bilirubin (0.2-1.0) mg/dL AST (15-37) U/L ALT (10-53) U/L Alkaline Phosphatase (45-117) U/L Ammonia 58 H (11-32) mcmol/L Troponin I (0.02-0.05) ng/mL Total Protein (6.4-8.2) g/dL Albumin (3.4-5.0) g/dL Urine Color (Yellw/Straw) Urine Clarity (Clear) Urine pH (5.0-8.5) Ur Specific [place] (1.002-1.035) Urine Protein (Neg-Trace) mg/dL Urine Glucose (UA) (Negative) mg/dL Urine Ketones (Negative) mg/dL Urine Occult Blood (Negative) Urine Nitrate (Negative) Urine Bilirubin (Negative) Urine Urobilinogen (Less than 2) mg/dL Ur Leukocyte Esterase (Negative) Urine RBC (0-3) /hpf Urine WBC (0-5) /hpf Ur Squamous Epith Cells (0-5) /hpf Urine Bacteria (None) /hpf Micro UA Comment Urine Culture Comments Imaging Data Radiologist's impression: Chest X-Ray 10/01/17 15:52 CONCLUSION: Negative examination. Head CT 10/01/17 15:53 CONCLUSION: 1. Negative CT Head non contrast. . ECG Data Attestation: I personally reviewed and interpreted this ECG as follows: Interpretation: Rate: 140 BPM Rhythm: Sinus [place]: Normal Intervals: Normal intervals, no blocks, QTc 400 ms Q waves: None T waves: Inverted in III, aVF ST segments: No significant depressions Impression: Sinus tachycardia, no significant changes as compared to EKG from . Discharge Plan Discharge Disposition Patient Disposition: 30 Still Patient Discharge Condition Condition: Critical Discharge Details Diagnosis: DKA (diabetic ketoacidoses), Acidosis, lactic, Encephalopathy Physicians Team ED Provider: Olga Chacko Primary Care Provider: Shabbir Ludwig V Attending Provider: Edison Jeffrey Discharge Interventions Interventions: Vital Signs Last Done: 10/01/17 17:52 Status ED Status: Admitted Patient
[2017-10-01 17:45] LABS: Lymphocytes 7 % (9-44); Metamyelocytes 3 % (0-1); Monocytes 2 % (0-8); Myelocytes 1 % (0-0)
[2017-10-01 17:46] LABS: Platelet Estimate Normal (Normal)
[2017-10-01 17:47] LABS: Platelet Morphology Normal (Normal); Toxic Granulation 2+; Toxic Vacuolation Present
[2017-10-01] MEDS ORDERED: Bisacodyl 10 MG Supp RECTAL PRN (17:51)
[2017-10-01] MEDS ORDERED: Acetaminophen 325 MG Tablet PO PRN (17:51)
[2017-10-01] MEDS ORDERED: Morphine Sulfate Inj 2 MG/ML Vial IV.PUSH PRN (17:51)
[2017-10-01] MEDS: Dextrose 5%/NaCl 0.9% Inj 1,000 ML IV.CONT SCH ×2 (18:38→23:51)
--- NOTE | 2017-10-01 19:04 | P.HPCC ---
History of Present Illness Service: critical care medicine Primary Care Physician: Shabbir Ludwig MD Chief Complaint: altered mental status History of Present Illness: 62yF brought in by EMS for unresponsiveness. The patient has a history of insulin dependent diabetes, and as per her sister has "not been feeling well and vomiting" for the past 2 days. She says that the patient looked tired and dehydrated this morning, but when she came back from shopping this afternoon she found her on the floor unresponsive. EMS reports that the patient's glucose read "high" on their glucometer. Per ER documentation, sister reported no history of DKA in the past. Patient was noted to have severe hyperglycemia with blood glucose greater than 1000 and was in severe metabolic acidosis along with an elevated lactic acid. She was diagnosed to be in DKA as well and was started on insulin drip per DKA protocol. She has received 3 L normal saline bolus. She was accepted for admission by critical care medicine service. When I evaluated the patient in the ER she was minimally responsive in the ER stretcher, stuporous, not following commands. The patient is altered and unable to provide meaningful contribution to HPI or ROS. Inpatient Certification: I certify that the inpatient services were ordered in accordance with Medicare regulations governing the order. This includes certification that hospital inpatient services are reasonable and necessary and in the case of services not specified as inpatient-only under 42 CFR 419.22(n), that they are appropriately provided as inpatient services in accordance to with the 2-midnight benchmark under 43 CFR 412.3(e) Estimated Total Length of Stay (Days): 3 Plans for Post Hospital Care: Home Review of Systems unobtainable due to mental status PMFSH - History History Provided By: Family Member - Medical History Medical History: Medical History (Last Reviewed 10/01/17 @ 17:36 by Olga Chacko DO) Diabetes Hyperlipidemia Hypertension - Tobacco History Smoking Status: Never smoker - Alcohol History How Often Do You Have a Drink Containing Alcohol: Monthly or less - Substance Use History Substance History: No History of Abuse - Travel History Recent Travel in the [place] Within the Last 8 Weeks: No Recent Travel Out of the Country Within the Last 8 Weeks: No - Immunization History Tetanus Immunization: Unsure Hx Influenza Vaccine This Season: Unable to Assess Medications and Allergies Active Medications: Active Medications Acetaminophen (Tylenol) 650 mg PO Q6H PRN PRN Reason: PAIN 1-10 AND/OR FEVER >101F Hydrocodone Bitart/Acetaminophen ([place] 5/325) 1 tab PO Q4H PRN PRN Reason: PAIN SCALE 1 TO 5 Al Hydroxide/Mg Hydroxide (Milk Of Julia Yañez) 30 ml PO Q12H PRN PRN Reason: Mild Constipation Albuterol (Albuterol Neb (Prn)) 2.5 mg NEB Q2HR NEB PRN PRN Reason: SHORTNESS OF BREATH/WHEEZING Albuterol (Duoneb Neb (Noris)) 1 ampul NEB Q4HR NEB [facility] Bisacodyl (Dulcolax Supp) 10 mg RECTAL DAILY PRN PRN Reason: SEVERE CONSITIPATION Chlorhexidine Gluconate (Chlorhexidine 2% Cloth) 3 pack TOPICAL DAILY@0400 [facility]IS Stop: 10/07/17 03:59 Chlorhexidine Gluconate (Chlorhexidine 2% Cloth) 3 pack TOPICAL DAILY@0400 PRN PRN Reason: Extra cloth needed Stop: 10/07/17 03:59 Heparin Sodium (Porcine) (Heparin Inj) 5,000 units SQ Q12H [facility] Insulin Human Regular 100 unit (/ Sodium Chloride) 100 mls @ 8 mls/hr IV.CONT TITRATE PRN; Protocol PRN Reason: See protocol Last Admin: 10/01/17 18:00 Dose: 8 units/hr, 8 mls/hr Dextrose/Sodium Chloride (D5w/Normal Saline Inj) 1,000 mls @ 200 mls/hr IV.CONT .Q5H [facility] Last Admin: 10/01/17 18:38 Dose: Not Given Sodium Chloride (Ns Inj) 1,000 mls @ 250 mls/hr IV.CONT .Q4H [facility] Potassium Chloride (Kcl 40 Meq Premix Inj) 40 meq in 100 mls @ 100 mls/hr IV.SIG Q1H PRN PRN Reason: for Initial K+ ONLY < 3.5 Potassium Chloride (Kcl 20 Meq Premix Inj) 20 meq in 100 mls @ 100 mls/hr IV.SIG Q1H PRN PRN Reason: for K+ 3.5 to 4.4 Potassium Chloride (Kcl 20 Meq Premix Inj) 20 meq in 100 mls @ 100 mls/hr IV.SIG Q1H PRN PRN Reason: for K+ 4.5 to 5 Potassium Chloride (Kcl 20 Meq Premix Inj) 20 meq in 100 mls @ 50 mls/hr IV.SIG Q2H PRN PRN Reason: for Initial K+ ONLY < 3.5 Potassium Chloride (Kcl 20 Meq Premix Inj) 20 meq in 100 mls @ 50 mls/hr IV.SIG Q2H PRN PRN Reason: for Subsequent K+ < 3.5 Potassium Chloride (Kcl 20 Meq Premix Inj) 20 meq in 100 mls @ 50 mls/hr IV.SIG Q2H PRN PRN Reason: for K+ 3.5 to 4.4 Potassium Chloride (Kcl 20 Meq Premix Inj) 20 meq in 100 mls @ 50 mls/hr IV.SIG Q2H PRN PRN Reason: for K+ 4.5 to 5 Sodium Phosphate 15 mmol/ (Sodium Chloride) 105 mls @ 25 mls/hr IV.SIG UNSCH PRN PRN Reason: for Phosphate Level < 1.0 Potassium Chloride (Kcl 40 Meq Premix Inj) 40 meq in 100 mls @ 50 mls/hr IV.SIG Q2H PRN PRN Reason: for Subsequent K+ < 3.5 Sodium Chloride (Ns Inj) 2,000 mls @ 0 mls/hr IV.SIG BOLUS ONE Stop: 10/01/17 18:54 Lactulose (Lactulose Liq) 30 ml PO DAILY PRN PRN Reason: SEVERE CONSITIPATION Morphine Sulfate (Morphine Inj) 2 mg IV.PUSH Q2H PRN PRN Reason: PAIN SCALE 6 TO 10 Ondansetron HCl (Zofran Inj) 4 mg IV.PUSH Q6H PRN PRN Reason: NAUSEA OR VOMITING Pantoprazole Sodium (Protonix Inj) 40 mg IV.PUSH DAILY [facility] Senna/Docusate Sodium (Luann-Colace) 1 tab PO BID [facility] Sennosides (Senokot) 17.2 mg PO Q12H PRN PRN Reason: Moderate Constipation Sodium Bicarbonate (Sodium Bicarbonate 8.4% Inj) 100 meq IV.PUSH UNSCH PRN PRN Reason: for pH less than 6.9 Sodium Bicarbonate (Sodium Bicarbonate 8.4% Inj) 50 meq IV.PUSH UNSCH PRN PRN Reason: for pH 6.9 to 7.0 Sodium Chloride (Ns Flush) 2 ml IV.FLUSH BID NORIS Sodium Chloride (Ns Flush) 2 ml IV.FLUSH PRN PRN PRN Reason: FLUSH AFTER USING IV ACCESS Allergies Allergy/AdvReac Type Severity Reaction Status Date / Time insulin glargine AdvReac Intermediate Edema Verified 10/01/17 16:24 Home Medications Medication Instructions Recorded Confirmed Type amlodipine 10 mg PO DAILY 10/01/17 10/01/17 History escitalopram oxalate [Lexapro] 5 mg PO DAILY 10/01/17 10/01/17 History hydrochlorothiazide 25 mg PO QAM 10/01/17 10/01/17 History insulin aspart U-100 10/01/17 10/01/17 History lisinopril 40 mg PO DAILY 10/01/17 10/01/17 History metoprolol tartrate 50 mg PO BID 10/01/17 10/01/17 History semaglutide [Ozempic] 1 mg SUB-Q QWEEK 10/01/17 10/01/17 History Results - Labs CBC & Chem 7: 10/01/17 16:05 10/01/17 16:05 Labs: Short CBC 10/01/17 Range/Units 16:05 WBC 14.7 H (4.0-11.0) th/mm3 Hgb 11.1 L (11.6-15.3) gm/dL Hct 38.9 (35.0-46.0) % Plt Count 286 (150-450) th/mm3 BMP 10/01/17 16:05 Sodium 138 Potassium 6.1 H Chloride 99 Carbon Dioxide Less than 5.0 L BUN 37 H Creatinine 2.19 H Calcium 9.0 Cardiac Enzymes 10/01/17 Range/Units 16:05 Troponin I Less than 0.02 L (0.02-0.05) ng/mL Liver Function 10/01/17 Range/Units 16:05 Total Bilirubin 0.7 (0.2-1.0) mg/dL AST 60 H (15-37) U/L ALT 34 (10-53) U/L Alkaline Phosphatase 103 (45-117) U/L Albumin 3.2 L (3.4-5.0) g/dL Urine 10/01/17 Range/Units 16:07 Urine Color Straw (Yellw/Straw) Urine Clarity Clear (Clear) Urine pH 5.0 (5.0-8.5) Ur Specific [place] 1.020 (1.002-1.035) Urine Protein Negative (Neg-Trace) mg/dL Urine Glucose (UA) 500 or greater (Negative) mg/dL - Imaging Impressions Chest X-Ray 10/01/17 15:52 CONCLUSION: Negative examination. Head CT 10/01/17 15:53 CONCLUSION: 1. Negative CT Head non contrast. . Exam Vital signs: Vital Signs 10/01/17 15:49 10/01/17 15:52 10/01/17 16:20 Temperature 99.4 F Pulse Rate 138 H 128 H 125 H Respiratory Rate 34 H 35 H 36 H Blood Pressure 128/60 137/79 121/78 Pulse Oximetry 99 100 100 10/01/17 17:00 10/01/17 17:16 10/01/17 17:51 Temperature Pulse Rate 130 H 122 H Respiratory Rate 28 H 36 H Blood Pressure 103/51 L 107/55 L Pulse Oximetry 100 100 100 10/01/17 17:52 Temperature Pulse Rate 126 H Respiratory Rate 18 Blood Pressure 110/52 L Pulse Oximetry 100 Intake & Output 09/30/17 10/01/17 10/01/17 18:59 06:59 18:59 Intake Total 1999 Balance 1999 Weight 79.379 kg Intake: IV 1999 NS Inj 2,000 ML @ Wide Open IV. 1999 SIG BOLUS ONE Rx#:[id number] Narrative: HEENT/Neuro: No pallor or icterus, tongue dry, ELLIOTT, encephalopathic, stuporous , grimaces with painful stimuli however not following commands., nonfocal grossly, moving all 4 extremities Neck: No JVD Chest/pulmonary: CTA bilaterally Cardiovascular: S1-S2 regular no gallop or murmur GI/abdomen: Soft, nontender, bowel sounds present Extremities: Warm bilaterally, no edema Caprini VTE Risk Assessment Caprini VTE Risk Assessment: Moderate/High Risk (score >= 2) Caprini Risk Assessment Model: Point Value = 1 Point Value = 2 Point Value = 3 Point Value = 5 Age 41-60 Minor surgery BMI > 25 kg/m2 Swollen legs Varicose veins or History of unexplained or recurrent spontaneous Oral contraceptives or hormone replacement Sepsis (< 1 month) Serious lung disease, including pneumonia (< 1 month) Abnormal pulmonary function Acute myocardial infarction Congestive heart failure (< 1 month) History of inflammatory bowel disease Medical patient at bed rest Age 61-74 Arthroscopic surgery Major open surgery (> 45 min) Laparoscopic surgery (> 45 min) Malignancy Confined to bed (> 72 hours) Immobilizing plaster cast Central venous access Age >= 75 History of VTE Family history of VTE Factor V Leiden Prothrombin [id number] Lupus anticoagulant Anticardiolipin antibodies Elevated serum homocysteine Heparin-induced thrombocytopenia Other congenital or acquired thrombophilia Stroke (< 1 month) Elective arthroplasty Hip, pelvis, or leg fracture Acute spinal cord injury (< 1 month) Prophylaxis Regimen: Total Risk Factor Score Risk Level Prophylaxis Regimen 0-1 Low Early ambulation 2 Moderate Order ONE of the following: *Sequential Compression Device (SCD) *Heparin 5000 units SQ BID 3-4 Higher Order ONE of the following medications: *Heparin 5000 units SQ TID *Enoxaparin/Lovenox 40 mg SQ daily (WT < 150 kg, CrCl > 30 mL/min) *Enoxaparin/Lovenox 30 mg SQ daily (WT < 150 kg, CrCl > 10-29 mL/min) *Enoxaparin/Lovenox 30 mg SQ BID (WT < 150 kg, CrCl > 30 mL/min) AND/OR *Sequential Compression Device (SCD) 5 or more Highest Order ONE of the following medications: *Heparin 5000 units SQ TID (Preferred with Epidurals) *Enoxaparin/Lovenox 40 mg SQ daily (WT < 150 kg, CrCl > 30 mL/min) *Enoxaparin/Lovenox 30 mg SQ daily (WT < 150 kg, CrCl > 10-29 mL/min) *Enoxaparin/Lovenox 30 mg SQ BID (WT < 150 kg, CrCl > 30 mL/min) AND *Sequential Compression Device (SCD) Assessment and Plan - Assessment and Plan Plan: 62-year-old female with: Encephalopathy Hyperosmolar state Diabetic ketoacidosis Lactic acidosis Dehydration Nausea vomiting Plan: Neuro: Follow neuro status, avoid sedatives and narcotics. Expect neurologic status to improve with correction of hyperglycemia and metabolic acidosis. Cardiovascular: Aggressive fluid resuscitation, watch for hypotension. Hold all antihypertensives at this time. Follow serial lactate level. Pulmonary: Supplemental O2, bronchodilators as needed. Protecting airway currently. If neurologic status worsens may require endotracheal intubation for airway protection. GI/liver: n.p.o. Renal/: IV hydration, strict intake output, monitor and replete electrolytes, follow BN creatinine. ID: Leukocytosis possibly stress response. No antibiotics at this time. Heme: Follow CBC Endocrine: Started on insulin drip per DKA protocol. Follow serial labs and glucose levels per protocol. Prophylaxis: PPI/SCDs/Lovenox Condition critical Time spent on critical care excluding procedures 45 minutes
[2017-10-01 20:35] LABS: Calcium 8.3 mg/dL (8.5-10.1); Carbon Dioxide 5.1 meq/L (21.0-32.0); Magnesium 2.3 mg/dL (1.5-2.5); Phosphorus 8.3 mg/dL (2.5-4.9); Potassium 4.8 meq/L (3.5-5.1)
[2017-10-01] MEDS: Heparin - SQ 10,000 UNITS/ML Vial SQ SCH (21:01)
[2017-10-01] MEDS: Senna/Docusate Sodium 8.6/50 MG Tablet PO SCH (21:02)
--- NOTE | 2017-10-01 22:05 | ECG ---
Date Performed: 10/01/2017 Time Performed: 15:54:20 PTAGE: 62 years EKG: SINUS TACHYCARDIA NONSPECIFIC ST & T-WAVE ABNORMALITY ABNORMAL RHYTHM ECG Compared to PREVIOUS TRACING , rate faster DOCTOR: Emily Fernandez Interpretating Date/Time 10/01/2017 22:04:07
[2017-10-02 00:02] LABS: Calcium 8.3 mg/dL (8.5-10.1); Carbon Dioxide 6.1 meq/L (21.0-32.0); Magnesium 2.1 mg/dL (1.5-2.5); Phosphorus 2.8 mg/dL (2.5-4.9); Troponin I 0.06 ng/mL (0.02-0.05)
[2017-10-02 00:05] LABS: Potassium 4.3 meq/L (3.5-5.1)
[2017-10-02] MEDS ORDERED: Sod Chloride 0.9% Inj 1,000 ML IV.SIG ONE (01:56)
[2017-10-02] MEDS ORDERED: Chlorhexidine Gluconate 2% 1 Pack (2 Cloths) TOPICAL PRN ×3 (04:00)
[2017-10-02] MEDS ORDERED: Chlorhexidine Gluconate 2% 1 Pack (2 Cloths) TOPICAL SCH ×2 (04:00)
[2017-10-02 04:14] LABS: ABG Base Excess -10.8 mmol/L (-2-2); ABG PCO2 24 mmHg (38-42); ABG PO2 79 mmHG (61-120)
[2017-10-02] MEDS: Chlorhexidine Gluconate 2% 1 Pack (2 Cloths) TOPICAL SCH (04:24)
[2017-10-02] MEDS: Dextrose 5%/NaCl 0.9% Inj 1,000 ML IV.CONT SCH ×2 (04:25→06:19)
[2017-10-02 04:50] LABS: Beta Hydroxybutyric Acid 3.04 mmol/L (0.00-0.39); Calcium 8.2 mg/dL (8.5-10.1); Carbon Dioxide 15.4 meq/L (21.0-32.0); Magnesium 1.8 mg/dL (1.5-2.5); Phosphorus 1.4 mg/dL (2.5-4.9); Potassium 4.3 meq/L (3.5-5.1)
[2017-10-02] MEDS: Heparin - SQ 10,000 UNITS/ML Vial SQ SCH (08:27)
[2017-10-02] MEDS: Pantoprazole Inj 40 MG Vial IV.PUSH SCH (08:28)
[2017-10-02] MEDS: Senna/Docusate Sodium 8.6/50 MG Tablet PO SCH (08:28)
--- NOTE | 2017-10-02 09:04 | P.PNCC ---
Subjective Subjective Remarks/Hospital Course: 62yF brought in by EMS for unresponsiveness. The patient has a history of insulin dependent diabetes, and as per her sister has "not been feeling well and vomiting" for the past 2 days. She says that the patient looked tired and dehydrated this morning, but when she came back from shopping this afternoon she found her on the floor unresponsive. EMS reports that the patient's glucose read "high" on their glucometer. Per ER documentation, sister reported no history of DKA in the past. Patient was noted to have severe hyperglycemia with blood glucose greater than 1000 and was in severe metabolic acidosis along with an elevated lactic acid. She was diagnosed to be in DKA as well and was started on insulin drip per DKA protocol. She has received 3 L normal saline bolus. She was accepted for admission by critical care medicine service. When I evaluated the patient in the ER she was minimally responsive in the ER stretcher, stuporous, not following commands. The patient is altered and unable to provide meaningful contribution to HPI or ROS. SUBJECTIVE: 10/02: Currently on D5 half-normal saline due to elevated sodium remains nauseous. Compazine currently added for nausea. her urine output noted. Creatinine slowly normalizing currently 1.8. Less encephalopathic centimeters.. Objective Vital Signs / I&O: Vital Signs 10/01/17 15:49 10/01/17 15:52 10/01/17 16:20 Temperature 99.4 F Pulse Rate 138 H 128 H 125 H Respiratory Rate 34 H 35 H 36 H Blood Pressure 128/60 137/79 121/78 Pulse Oximetry 99 100 100 10/01/17 17:00 10/01/17 17:16 10/01/17 17:51 Temperature Pulse Rate 130 H 122 H Respiratory Rate 28 H 36 H Blood Pressure 103/51 L 107/55 L Pulse Oximetry 100 100 100 10/01/17 17:52 10/01/17 20:00 10/01/17 21:00 Temperature 97.6 F 97.6 F Pulse Rate 126 H 119 H 120 H Respiratory Rate 18 27 H 30 H Blood Pressure 110/52 L 123/58 L 120/57 L Pulse Oximetry 100 100 100 10/01/17 22:00 10/01/17 23:00 10/01/17 23:20 Temperature 97.7 F 97.7 F Pulse Rate 123 H 120 H 115 H Respiratory Rate 26 H 26 H 20 Blood Pressure 132/62 125/56 L Pulse Oximetry 100 100 100 10/02/17 00:00 10/02/17 01:00 10/02/17 02:00 Temperature 97.7 F 97.9 F 98 F Pulse Rate 114 H 115 H 116 H Respiratory Rate 19 20 21 Blood Pressure 120/59 L 143/66 H 136/63 Pulse Oximetry 100 100 100 10/02/17 03:00 10/02/17 04:00 10/02/17 05:00 Temperature 97.9 F 97.9 F 97.9 F Pulse Rate 121 H 117 H 116 H Respiratory Rate 30 H 31 H 22 Blood Pressure 156/74 H 147/69 H 142/64 H Pulse Oximetry 100 100 100 10/02/17 06:00 10/02/17 07:00 10/02/17 08:00 Temperature 98 F 99.1 F Pulse Rate 116 H 114 H 115 H Respiratory Rate 20 29 H 27 H Blood Pressure 150/67 H 135/64 144/65 H Pulse Oximetry 100 100 100 10/02/17 08:10 Temperature Pulse Rate 116 H Respiratory Rate 29 H Blood Pressure Pulse Oximetry 100 Intake & Output 10/01/17 10/02/17 10/02/17 18:59 06:59 18:59 Intake Total 1999 Output Total 2034 / 2034 175 / 175 Balance 1999 -35 / -35 -175 / -175 Weight 79.379 kg 77.5 kg Intake: IV 1999 D5W/Normal Saline Inj 1,000 ML 1999 @ 200 mls/hr IV.CONT .Q5H [facility] Rx#:[id number] NS Inj 2,000 ML @ Wide Open IV. 1999 SIG BOLUS ONE Rx#:[id number] Output: Urine 585 / 585 100 / 100 Urine Amount (Catheter) 1450 / 1450 75 / 75 Indwelling Urethral Catheter 1450 / 1450 75 / 75 Result Diagrams: 10/01/17 16:05 10/02/17 03:59 Other Results: Microbiology 10/01/17 16:05 Blood - Peripheral Anaerobic Blood Culture - Final QNS - See aerobic report. Imaging: ITS Impressions Chest X-Ray 10/01/17 15:52 CONCLUSION: Negative examination. Head CT 10/01/17 15:53 CONCLUSION: 1. Negative CT Head non contrast. . Objective Remarks: GENERAL: 62-year-old AA female resting in bed in mild distress secondary to abdominal pain SKIN: Warm and dry. No rash HEAD: Atraumatic. Normocephalic. EYES: Pupils equal and round about 3 mm bilaterally and reactive. No scleral icterus. No injection or drainage. ENT: No nasal bleeding or discharge. Mucous membranes pink and moist. NECK: Trachea midline. No JVD. CARDIOVASCULAR: Tachycardic, RR. S1, S2 predose for without murmur RESPIRATORY: No accessory muscle use. Clear to auscultation. Breath sounds equal bilaterally. GASTROINTESTINAL: Abdomen soft, tender to diffuse palpation especially epigastric. Hypoactive bowel sounds appreciated.. MUSCULOSKELETAL: Extremities without significant peripheral edema. No obvious deformities. NEUROLOGICAL: Awake and alert. No obvious cranial nerve deficits. Motor grossly within normal limits. Five out of 5 muscle strength in the arms and legs. Normal speech. PSYCHIATRIC: Appropriate mood and affect; insight and judgment normal. Assessment and Plan - Assessment and Plan Plan: 62-year-old female with: Acute toxic metabolic encephalopathy Hyperosmolar state Diabetic ketoacidosis Lactic acidosis Dehydration Nausea vomiting History of depression Essential hypertension Leukocytosis Macrocytic anemia Lactic acidosis Hypoalbuminemia Pancreatitis with elevated lipase Acute kidney injury Hypernatremia/iatrogenic Plan: Neuro: Follow neuro status, avoid sedatives and narcotics. Expect neurologic status to improve with correction of hyperglycemia and metabolic acidosis. Okay to restart escitalopram 0.5 mg daily fo depression Cardiovascular: Aggressive fluid resuscitation currently on D5 one half normal saline at 200 cc an hour, watch for hypotension. Holding hydrochlorothiazide 25 mg daily lisinopril 40 mg a day and amlodipine 10 mg daily. Okay to restart metoprolol 50 mg twice daily. Serial lactates currently trending downward at 6.5 Pulmonary: Supplemental O2, bronchodilators as needed. Protecting airway currently. If neurologic status worsens may require endotracheal intubation for airway protection. GI/liver: n.p.o.. Follow-up on CT abdomen/pelvis. Recheck liver function tests in a.m. and lipase Renal/: IV hydration, strict intake output, monitor and replete electrolytes, follow BN creatinine. ID: Leukocytosis possibly stress response. No antibiotics at this time. Heme: Follow CBC. No indication for transfusion of blood products at this time Endocrine: Started on insulin drip per DKA protocol. Follow serial labs and glucose levels per protocol. Prophylaxis: PPI/SCDs/1 subcu Condition critical Time spent on critical care excluding procedures 35 minutes
[2017-10-02] MEDS ORDERED: Diatrizoate Meglum/Diatrizoate Sod Liq 9 ML UDC PO ONE (09:21)
[2017-10-02] MEDS: Metoprolol Tartrate 50 MG Tablet PO SCH (09:33)
[2017-10-02] MEDS: Escitalopram 10 MG Tablet PO SCH (09:33)
[2017-10-02] MEDS: Dextrose 5%/NaCl 0.45% Inj 1,000 ML IV.CONT SCH ×2 (11:37→18:50)
--- NOTE | 2017-10-02 14:29 | CT ---
EXAM DATE: 10/02/2017 2:14 PM EDT AGE/SEX: 62 years / Female INDICATIONS: Pancreatitis. Nausea. CLINICAL DATA: This is the patient's initial encounter. Patient reports that signs and symptoms have been present for 1 day and indicates a pain score of 0/10. MEDICAL/SURGICAL HISTORY: Diabetes. Hypertension. None. ORAL CONTRAST: Prescribed oral contrast ingested. RADIATION DOSE: 10.17 CTDI (mGy) COMPARISON: No prior exams available for comparison. TECHNIQUE: Multiple contiguous axial images were obtained through the abdomen and pelvis following b olus infusion of 46 ml Visipaque 320 (iodixanol) nonionic water-soluble contrast as a single exam d ose. Prescribed oral contrast ingested. Using automated exposure control and adjustment of the mA an d/or kV according to patient size, radiation dose was kept as low as reasonably achievable to obtain optimal diagnostic quality images. DICOM format image data is available electronically for review an d comparison. FINDINGS: There is diffuse mesenteric edema and small ascites. Edematous and heterogeneously enhancing pancreas present consistent with acute pancreatitis in the proper clinical setting. The heterogeneous enhance ment is concerning for some patchy parenchymal necrosis. No large, focal areas of necrosis are seen. No ductal dilatation demonstrated. Liver is 22 cm craniocaudal and fatty infiltrated. No focal hepatic lesion seen. Spleen, adrenal glan ds and kidneys are within normal limits. No obstruction or focal inflammatory changes are seen of the gastrointestinal tract. Patchy consolidation seen of both lung bases. No acute bony abnormality. CONCLUSION: 1. CT findings consistent with acute pancreatitis in the proper clinical setting. Some mild patchy p arenchymal necrosis is also possible. No associated organized fluid collection. No perceptible ductal dilatation. 2. Small ascites. Diffuse mesenteric edema. 3. Enlarged and fatty infiltrated liver. 4. Consolidation of the visualized lung bases. Electronically signed by: Rl Chilel MD 10/02/2017 2:28 PM EDT
[2017-10-02 15:00] LABS: Baso % (Auto) 0.3 % (0.0-2.0); Hematocrit 28.7 % (35.0-46.0); Hemoglobin 8.1 gm/dL (11.6-15.3); Lymph # (Auto) 0.7 th/mm3 (1.0-4.8); Lymph % (Auto) 8.7 % (9.0-44.0); Mean Corpuscular Hemoglobin 30.8 pg (27.0-34.0); Mean Corpuscular Volume 108.7 fL (80.0-100.0); Mean Platelet Volume 9.4 fL (7.0-11.0); Mono # (Auto) 0.5 th/mm3 (0.0-0.9); Mono % (Auto) 6.6 % (0.0-8.0); Neut # (Auto) 6.6 th/mm3 (1.8-7.7); Neut % (Auto) 84.4 % (16.0-70.0); Platelet Count 160 th/mm3 (150-450); Red Blood Count 2.64 mil/mm3 (4.00-5.30); Red Cell Distribution Width 16.8 % (11.6-17.2); White Blood Count 7.8 th/mm3 (4.0-11.0)
[2017-10-02 15:07] LABS: Mean Corpuscular HGB Conc 28.4 % (32.0-36.0)
[2017-10-02 17:15] LABS: Alanine Aminotransferase 36 U/L (10-53); Albumin 2.7 g/dL (3.4-5.0); Anion Gap 15 meq/L (5-15); Aspartate Aminotransferase 57 U/L (15-37); Blood Urea Nitrogen 18 mg/dL (7-18); Calcium 7.7 mg/dL (8.5-10.1); Carbon Dioxide 16.1 meq/L (21.0-32.0); Chloride 122 meq/L (98-107); Glucose,Random 178 mg/dL (74-106); Magnesium 1.7 mg/dL (1.5-2.5); Potassium 3.4 meq/L (3.5-5.1); Sodium 153 meq/L (136-145)
[2017-10-02 17:17] LABS: Alkaline Phosphatase 99 U/L (45-117); Beta Hydroxybutyric Acid 1.46 mmol/L (0.00-0.39); Lipase 2393 U/L (73-393); Total Protein 6.1 g/dL (6.4-8.2)
[2017-10-02 17:25] LABS: Hemoglobin A1c 10.3 % (4.3-6.0)
[2017-10-02] MEDS ORDERED: Potassium Phosphate Inj 30 MMOL in Sodium Chlor 0.9% Inj 250 ML IV.SIG ONE (22:00)
[2017-10-03] MEDS: Senna/Docusate Sodium 8.6/50 MG Tablet PO SCH ×3 (08:25→21:40)
[2017-10-03] MEDS: Metoprolol Tartrate 50 MG Tablet PO SCH ×3 (08:25→21:39)
[2017-10-03] MEDS: Heparin - SQ 10,000 UNITS/ML Vial SQ SCH ×3 (09:00→21:46)
[2017-10-03] MEDS: Escitalopram 10 MG Tablet PO SCH (09:01)
[2017-10-03] MEDS: Pantoprazole Inj 40 MG Vial IV.PUSH SCH (09:01)
[2017-10-03] MEDS: Chlorhexidine Gluconate 2% 1 Pack (2 Cloths) TOPICAL SCH (09:05)
[2017-10-03] MEDS: Dextrose 5%/NaCl 0.45% Inj 1,000 ML IV.CONT SCH (10:29)
--- NOTE | 2017-10-03 10:53 | P.PNCC ---
Subjective Subjective Remarks/Hospital Course: 62yF brought in by EMS for unresponsiveness. The patient has a history of insulin dependent diabetes, and as per her sister has "not been feeling well and vomiting" for the past 2 days. She says that the patient looked tired and dehydrated this morning, but when she came back from shopping this afternoon she found her on the floor unresponsive. EMS reports that the patient's glucose read "high" on their glucometer. Per ER documentation, sister reported no history of DKA in the past. Patient was noted to have severe hyperglycemia with blood glucose greater than 1000 and was in severe metabolic acidosis along with an elevated lactic acid. She was diagnosed to be in DKA as well and was started on insulin drip per DKA protocol. She has received 3 L normal saline bolus. She was accepted for admission by critical care medicine service. When I evaluated the patient in the ER she was minimally responsive in the ER stretcher, stuporous, not following commands. The patient is altered and unable to provide meaningful contribution to HPI or ROS. SUBJECTIVE: 10/02: Currently on D5 half-normal saline due to elevated sodium remains nauseous. Compazine currently added for nausea. her urine output noted. Creatinine slowly normalizing currently 1.8. Less encephalopathic 10/03: Drowsy, arousable. Remains on insulin drip currently awaiting a.m. labs. Acute pancreatitis noted on CT abdomen pelvis done on 10/02. Objective Vital Signs / I&O: Vital Signs 10/02/17 11:00 10/02/17 12:00 10/02/17 12:34 Temperature 100.4 F H Pulse Rate 114 H 115 H 113 H Respiratory Rate 29 H 30 H 24 Blood Pressure 147/74 H 140/77 Pulse Oximetry 100 100 10/02/17 13:00 10/02/17 13:53 10/02/17 14:00 Temperature Pulse Rate 114 H 113 H 114 H Respiratory Rate 28 H 35 H Blood Pressure 139/65 140/66 140/68 Pulse Oximetry 100 91 L 10/02/17 14:24 10/02/17 15:00 10/02/17 16:00 Temperature 99.3 F Pulse Rate 110 H 109 H 109 H Respiratory Rate 32 H 26 H 22 Blood Pressure 144/69 H 144/69 H 137/65 Pulse Oximetry 91 L 95 96 10/02/17 16:39 10/02/17 17:00 10/02/17 18:00 Temperature Pulse Rate 108 H 112 H 115 H Respiratory Rate 23 32 H 26 H Blood Pressure 139/69 Pulse Oximetry 98 97 10/02/17 18:01 10/02/17 19:00 10/02/17 20:00 Temperature 99.2 F Pulse Rate 115 H 116 H 118 H Respiratory Rate 25 H 0 L 30 H Blood Pressure 177/70 H 143/69 H 155/76 H Pulse Oximetry 97 92 L 92 L 10/02/17 20:05 10/02/17 21:00 10/02/17 22:00 Temperature Pulse Rate 114 H 109 H Respiratory Rate 23 20 Blood Pressure 144/69 H 134/65 Pulse Oximetry 96 95 93 L 10/02/17 23:00 10/03/17 00:00 10/03/17 01:00 Temperature 97.9 F Pulse Rate 107 H 102 H 101 H Respiratory Rate 24 16 16 Blood Pressure 145/69 H 142/75 H 137/72 Pulse Oximetry 90 L 96 96 10/03/17 02:00 10/03/17 03:00 10/03/17 04:00 Temperature Pulse Rate 108 H 108 H 104 H Respiratory Rate 20 22 20 Blood Pressure 145/78 H 147/69 H 154/79 H Pulse Oximetry 92 L 94 L 95 10/03/17 04:32 10/03/17 05:00 10/03/17 06:00 Temperature Pulse Rate 106 H 109 H Respiratory Rate 28 H 10 L Blood Pressure 173/77 H 121/82 Pulse Oximetry 97 95 95 10/03/17 07:00 10/03/17 08:00 10/03/17 08:26 Temperature 98.7 F Pulse Rate 109 H 105 H Respiratory Rate 20 22 20 Blood Pressure 141/65 H 146/70 H Pulse Oximetry 91 L 94 L 10/03/17 09:00 10/03/17 10:00 Temperature Pulse Rate 110 H 106 H Respiratory Rate 21 18 Blood Pressure 156/73 H 144/69 H Pulse Oximetry 97 99 Intake & Output 10/02/17 10/03/17 10/03/17 18:59 06:59 18:59 Intake Total 1713 / 1713 1000 / 1000 713 / 713 Output Total 935 / 935 515 / 515 270 / 270 Balance 778 / 778 485 / 485 443 / 443 Weight 77.5 kg Intake: IV 1000 / 1000 1000 / 1000 D5W/1/2 NS Inj 1,000 ML @ 125 1000 / 1000 1000 / 1000 mls/hr IV.CONT .Q8H KUSH Rx#: [id number] Oral 240 / 240 240 / 240 Oral Supplement 473 / 473 473 / 473 Output: Urine 110 / 110 475 / 475 30 / 30 Emesis 200 / 200 200 / 200 Urine Amount (Catheter) 625 / 625 40 / 40 40 / 40 Indwelling Urethral Catheter 625 / 625 40 / 40 40 / 40 Other: Date of Last Bowel Movement 10/02/17 10/02/17 10/03/17 # Bowel Movements 1 1 Result Diagrams: 10/02/17 14:27 10/02/17 15:49 Imaging: Chest X-Ray 10/01/17 15:52 CONCLUSION: Negative examination. Head CT 10/01/17 15:53 CONCLUSION: 1. Negative CT Head non contrast. . Abdomen/Pelvis CT 10/02/17 00:00 CONCLUSION: 1. CT findings consistent with acute pancreatitis in the proper clinical setting. Some mild patchy parenchymal necrosis is also possible. No associated organized fluid collection. No perceptible ductal dilatation. 2. Small ascites. Diffuse mesenteric edema. 3. Enlarged and fatty infiltrated liver. 4. Consolidation of the visualized lung bases. Objective Remarks: GENERAL: 62-year-old AA female resting in bed in mild distress secondary to abdominal pain SKIN: Warm and dry. No rash HEAD: Atraumatic. Normocephalic. EYES: Pupils equal and round about 3 mm bilaterally and reactive. No scleral icterus. No injection or drainage. ENT: No nasal bleeding or discharge. Mucous membranes pink and moist. NECK: Trachea midline. No JVD. CARDIOVASCULAR: Tachycardic, RR. S1, S2 predose for without murmur RESPIRATORY: No accessory muscle use. Clear to auscultation. Breath sounds equal bilaterally. GASTROINTESTINAL: Abdomen soft, tender to diffuse palpation especially epigastric. Hypoactive bowel sounds appreciated.. MUSCULOSKELETAL: Extremities without significant peripheral edema. No obvious deformities. NEUROLOGICAL: Drowsy, easily arousable. No obvious cranial nerve deficits. Motor grossly within normal limits. Five out of 5 muscle strength in the arms and legs. Normal speech. PSYCHIATRIC: Appropriate mood and affect; insight and judgment normal. Assessment and Plan - Assessment and Plan Plan: 62-year-old female with: Acute toxic metabolic encephalopathy Hyperosmolar state Diabetic ketoacidosis Lactic acidosis Dehydration Nausea vomiting History of depression Essential hypertension Leukocytosis Macrocytic anemia Lactic acidosis Hypoalbuminemia Pancreatitis with elevated lipase Acute kidney injury Hypernatremia/iatrogenic Plan: Neuro: Follow neuro status, avoid sedatives and narcotics. Expect neurologic status to improve with correction of hyperglycemia and metabolic acidosis. Okay to restart escitalopram 0.5 mg daily fo depression Cardiovascular: Aggressive fluid resuscitation currently on D5 one half normal saline at 200 cc an hour, watch for hypotension. Holding hydrochlorothiazide 25 mg daily lisinopril 40 mg a day and amlodipine 10 mg daily. Okay to restart metoprolol 50 mg twice daily. Serial lactates currently trending downward at 6.5 Pulmonary: Supplemental O2, bronchodilators as needed. Protecting airway currently. If neurologic status worsens may require endotracheal intubation for airway protection. GI/liver: n.p.o.. CT abdomen/pelvis shows acute pancreatitis. Recheck liver function tests in a.m. and lipase. Consult GI for further evaluation of acute pancreatitis. Renal/: IV hydration, strict intake output, monitor and replete electrolytes, follow BN creatinine. ID: Leukocytosis possibly stress response. No antibiotics at this time. Heme: Follow CBC. No indication for transfusion of blood products at this time Endocrine: Started on insulin drip per DKA protocol. Follow serial labs and glucose levels per protocol. Plan to transition off insulin drip to Levemir/ sliding scale insulin following review of a.m. labs. Prophylaxis: PPI/SCDs/1 subcu
[2017-10-03 11:53] LABS: Baso # (Auto) 0.1 th/mm3 (0.0-0.2); Baso % (Auto) 0.7 % (0.0-2.0); Eos % (Auto) 0.1 % (0.0-4.0); Hematocrit 34.3 % (35.0-46.0); Hemoglobin 11.3 gm/dL (11.6-15.3); Lymph # (Auto) 1.6 th/mm3 (1.0-4.8); Lymph % (Auto) 15.7 % (9.0-44.0); Mean Corpuscular HGB Conc 32.8 % (32.0-36.0); Mean Corpuscular Hemoglobin 30.8 pg (27.0-34.0); Mean Corpuscular Volume 93.9 fL (80.0-100.0); Mean Platelet Volume 8.4 fL (7.0-11.0); Mono # (Auto) 0.4 th/mm3 (0.0-0.9); Mono % (Auto) 4.2 % (0.0-8.0); Neut % (Auto) 79.3 % (16.0-70.0); Platelet Count 197 th/mm3 (150-450); Red Blood Count 3.66 mil/mm3 (4.00-5.30); Red Cell Distribution Width 15.1 % (11.6-17.2); White Blood Count 10.1 th/mm3 (4.0-11.0)
[2017-10-03 12:04] LABS: INR 1.1 Ratio; Prothrombin Time 11.1 sec (9.8-11.6)
[2017-10-03 12:14] LABS: Albumin 2.4 g/dL (3.4-5.0); Anion Gap 16 meq/L (5-15); Aspartate Aminotransferase 46 U/L (15-37); Blood Urea Nitrogen 10 mg/dL (7-18); Calcium 7.8 mg/dL (8.5-10.1); Carbon Dioxide 16.3 meq/L (21.0-32.0); Chloride 118 meq/L (98-107); Glomerular Filtration Rate 51 mL/min (>89); Glucose,Random 150 mg/dL (74-106); Magnesium 1.5 mg/dL (1.5-2.5); Potassium 3.3 meq/L (3.5-5.1); Sodium 150 meq/L (136-145)
[2017-10-03 12:15] LABS: Alanine Aminotransferase 31 U/L (10-53); Cholesterol 139 mg/dL (120-200)
[2017-10-03 12:18] LABS: Alkaline Phosphatase 106 U/L (45-117); Beta Hydroxybutyric Acid 0.22 mmol/L (0.00-0.39); Chol/HDL Ratio 2.57 Ratio; HDL Cholesterol 53.9 mg/dL (40.0-60.0); LDL Cholesterol,Calculated 60 mg/dL (0-99); Phosphorus 1.1 mg/dL (2.5-4.9); Total Protein 5.9 g/dL (6.4-8.2); Triglycerides 128 mg/dL (42-150)
[2017-10-03] MEDS ORDERED: Dextrose 50% in Water 50 ML Vial IV.PUSH PRN (12:39)
[2017-10-03] MEDS ORDERED: DC Insulin drip 2 hrs post basal insulin dose OTHER ONE (12:39)
[2017-10-03] MEDS ORDERED: DC previous DKA orders (HMC 1917) OTHER ONE (12:39)
[2017-10-03] MEDS: Insulin Detemir Inj 1,000 UNIT/10 ML Vial SQ SCH ×2 (13:10→21:40)
--- NOTE | 2017-10-03 14:53 | P.CONGI ---
History of Present Illness Consult date: 10/03/17 Consult reason: Acute pancreatitis Chief complaint: DKA, encephalopathy History of Present Illness: This is a 62-year-old female who was admitted to the hospital on 10/01/2017. Patient was found in the floor unresponsive and was brought to the hospital per EMS for further evaluation. According to the record patient is an insulin- dependent diabetic and was in DKA and encephalopathic. She is currently being monitored in the intensive care setting and continues to be weak with some mild confusion. Family members are present to assist in her symptoms. Currently patient does note some mild generalized mid abdominal pain and right lower quadrant discomfort to light palpation. Patient states that she had been feeling bad for about a week but was unsure of her symptoms. Patient denies any current diarrhea or constipation and no obvious bleeding noted patient also denies nausea or vomiting or dyspepsia or obvious bleeding. Patient states no family history of colon cancer and no previous EGD ever performed. Patient thinks she has had a colonoscopy in the past but unknown findings or timing. Patient states social minimal EtOH consumption approximately once a month or less. Current labs show hemoglobin 11.3, PT/INR 1.1, bilirubin, AST [address] scan performed on admission shows consistent findings with acute pancreatitis and some mild patchy parenchymal necrosis is also possible. No associated organized fluid collection noted and no ductal dilatation. Small ascites with some diffuse mesenteric edema; enlarged and fatty infiltrate liver ; consolidation in the lung bases. Gastroenterology was called to assist in her care of acute pancreatitis. <Colleen Gamez - Last Filed: 10/03/17 15:16> Review of Systems All other systems reviewed negative except as stated in HPI <Colleen Gamez - Last Filed: 10/03/17 15:16> PMFSH - History History Provided By: Family Member - Medical History Medical History: Medical History (Last Reviewed 10/02/17 @ 07:48 by Benji Lewis) Diabetes Hyperlipidemia Hypertension - Tobacco History Smoking Status: Never smoker - Alcohol History How Often Do You Have a Drink Containing Alcohol: Monthly or less - Substance Use History Substance History: No History of Abuse - Travel History Recent Travel in the [place] Within the Last 8 Weeks: No Recent Travel Out of the Country Within the Last 8 Weeks: No - Immunization History Tetanus Immunization: Unsure Hx Influenza Vaccine This Season: Unable to Assess <Colleen Gamez - Last Filed: 10/03/17 15:16> - Medical History Medical History: Medical History (Last Reviewed 10/02/17 @ 07:48 by Benji Lewis) Diabetes Hyperlipidemia Hypertension <Lidya Daily - Last Filed: 10/03/17 15:20> Medications and Allergies Active Medications: Active Medications Acetaminophen (Tylenol) 650 mg PO Q6H PRN PRN Reason: PAIN 1-10 AND/OR FEVER >101F Last Admin: 10/02/17 11:34 Dose: 650 mg Hydrocodone Bitart/Acetaminophen (Senatobia 5/325) 1 tab PO Q4H PRN PRN Reason: PAIN SCALE 1 TO 5 Al Hydroxide/Mg Hydroxide (Milk Of Magnshannon Liq) 30 ml PO Q12H PRN PRN Reason: Mild Constipation Albuterol (Albuterol Neb (Prn)) 2.5 mg NEB Q2HR NEB PRN PRN Reason: SHORTNESS OF BREATH/WHEEZING Albuterol (Duoneb Neb (Noris)) 1 ampul NEB Q4HR NEB [facility] Last Admin: 10/03/17 14:22 Dose: 1 ampul Bisacodyl (Dulcolax Supp) 10 mg RECTAL DAILY PRN PRN Reason: SEVERE CONSITIPATION Chlorhexidine Gluconate (Chlorhexidine 2% Cloth) 3 pack TOPICAL DAILY@0400 [facility] Stop: 10/07/17 03:59 Last Admin: 10/03/17 09:05 Dose: Not Given Chlorhexidine Gluconate (Chlorhexidine 2% Cloth) 3 pack TOPICAL DAILY@0400 PRN PRN Reason: Extra cloth needed Stop: 10/07/17 03:59 Dextrose (D50w Vial) 50 ml IV.PUSH UNSCH PRN PRN Reason: PER HYPOGLYCEMIA PROTOCOL Escitalopram Oxalate (Lexapro) 5 mg PO DAILY [facility] Last Admin: 10/03/17 09:01 Dose: 5 mg Glucagon (Glucagon Inj) 1 mg OTHER UNSCH PRN PRN Reason: for Hypoglycemia Protocol Heparin Sodium (Porcine) (Heparin Inj) 5,000 units SQ Q12H [facility] Last Admin: 10/03/17 09:03 Dose: Not Given Insulin Human Regular 100 unit (/ Sodium Chloride) 100 mls @ 8 mls/hr IV.CONT TITRATE PRN; Protocol PRN Reason: See protocol Stop: 10/03/17 15:00 Last Titration: 08/08/18 18:58 Dose: 9.5 units/hr, 9.5 mls/hr Dextrose/Sodium Chloride (D5w/1/2 Ns Inj) 1,000 mls @ 125 mls/hr IV.CONT .Q8H [facility] Last Admin: 10/03/17 10:29 Dose: 125 mls/hr Potassium Phosphate 30 mmol/ (Sodium Chloride) 260 mls @ 43.333 mls/hr IV.SIG ONCE ONE Stop: 10/03/17 20:59 Insulin Detemir (Levemir Inj) 10 unit SQ BID [facility] Last Admin: 10/03/17 13:10 Dose: 10 unit Lactulose (Lactulose Liq) 30 ml PO DAILY PRN PRN Reason: SEVERE CONSITIPATION Metoprolol Tartrate (Lopressor) 50 mg PO BID [facility] Last Admin: 10/03/17 09:02 Dose: 50 mg Miscellaneous (Pill Splitter) 1 each OTHER UNSCH PRN PRN Reason: PILL SPLLITING Morphine Sulfate (Morphine Inj) 2 mg IV.PUSH Q2H PRN PRN Reason: PAIN SCALE 6 TO 10 Last Admin: 10/03/17 05:36 Dose: 2 mg Ondansetron HCl (Zofran Inj) 4 mg IV.PUSH Q6H PRN PRN Reason: NAUSEA OR VOMITING Last Admin: 10/03/17 01:15 Dose: 4 mg Pantoprazole Sodium (Protonix Inj) 40 mg IV.PUSH DAILY [facility] Last Admin: 10/03/17 09:01 Dose: 40 mg Prochlorperazine Edisylate (Compazine Inj) 5 mg IV.PUSH Q4H PRN PRN Reason: BREAKTHROUGH NAUSEA Senna/Docusate Sodium (Luann-Colace) 1 tab PO BID [facility] Last Admin: 10/03/17 09:02 Dose: Not Given Sennosides (Senokot) 17.2 mg PO Q12H PRN PRN Reason: Moderate Constipation Sodium Chloride (Ns Flush) 2 ml IV.FLUSH BID [facility] Last Admin: 10/03/17 09:04 Dose: Not Given Sodium Chloride (Ns Flush) 2 ml IV.FLUSH PRN PRN PRN Reason: FLUSH AFTER USING IV ACCESS <Colleen Gamez - Last Filed: 10/03/17 15:16> Active Medications: Active Medications Acetaminophen (Tylenol) 650 mg PO Q6H PRN PRN Reason: PAIN 1-10 AND/OR FEVER >101F Last Admin: 10/02/17 11:34 Dose: 650 mg Hydrocodone Bitart/Acetaminophen (Senatobia 5/325) 1 tab PO Q4H PRN PRN Reason: PAIN SCALE 1 TO 5 Al Hydroxide/Mg Hydroxide (Milk Of Magnsh[place] Liq) 30 ml PO Q12H PRN PRN Reason: Mild Constipation Albuterol (Albuterol Neb (Prn)) 2.5 mg NEB Q2HR NEB PRN PRN Reason: SHORTNESS OF BREATH/WHEEZING Albuterol (Duoneb Neb (Noris)) 1 ampul NEB Q4HR NEB [facility] Last Admin: 10/03/17 14:22 Dose: 1 ampul Bisacodyl (Dulcolax Supp) 10 mg RECTAL DAILY PRN PRN Reason: SEVERE CONSITIPATION Chlorhexidine Gluconate (Chlorhexidine 2% Cloth) 3 pack TOPICAL DAILY@0400 [facility] Stop: 10/07/17 03:59 Last Admin: 10/03/17 09:05 Dose: Not Given Chlorhexidine Gluconate (Chlorhexidine 2% Cloth) 3 pack TOPICAL DAILY@0400 PRN PRN Reason: Extra cloth needed Stop: 10/07/17 03:59 Dextrose (D50w Vial) 50 ml IV.PUSH UNSCH PRN PRN Reason: PER HYPOGLYCEMIA PROTOCOL Escitalopram Oxalate (Lexapro) 5 mg PO DAILY [facility] Last Admin: 10/03/17 09:01 Dose: 5 mg Glucagon (Glucagon Inj) 1 mg OTHER UNSCH PRN PRN Reason: for Hypoglycemia Protocol Heparin Sodium (Porcine) (Heparin Inj) 5,000 units SQ Q12H [facility] Last Admin: 10/03/17 09:03 Dose: Not Given Dextrose/Sodium Chloride (D5w/1/2 Ns Inj) 1,000 mls @ 125 mls/hr IV.CONT .Q8H [facility] Last Admin: 10/03/17 10:29 Dose: 125 mls/hr Potassium Phosphate 30 mmol/ (Sodium Chloride) 260 mls @ 43.333 mls/hr IV.SIG ONCE ONE Stop: 10/03/17 20:59 Insulin Detemir (Levemir Inj) 10 unit SQ BID [facility] Last Admin: 10/03/17 13:10 Dose: 10 unit Insulin Human Regular (Novolin R Correctional Sugar Inj) 0 units SQ Q6HR [facility]; Protocol Lactulose (Lactulose Liq) 30 ml PO DAILY PRN PRN Reason: SEVERE CONSITIPATION Metoprolol Tartrate (Lopressor) 50 mg PO BID [facility] Last Admin: 10/03/17 09:02 Dose: 50 mg Miscellaneous (Pill Splitter) 1 each OTHER UNSCH PRN PRN Reason: PILL SPLLITING Morphine Sulfate (Morphine Inj) 2 mg IV.PUSH Q2H PRN PRN Reason: PAIN SCALE 6 TO 10 Last Admin: 10/03/17 05:36 Dose: 2 mg Ondansetron HCl (Zofran Inj) 4 mg IV.PUSH Q6H PRN PRN Reason: NAUSEA OR VOMITING Last Admin: 10/03/17 01:15 Dose: 4 mg Pantoprazole Sodium (Protonix Inj) 40 mg IV.PUSH DAILY [facility] Last Admin: 10/03/17 09:01 Dose: 40 mg Prochlorperazine Edisylate (Compazine Inj) 5 mg IV.PUSH Q4H PRN PRN Reason: BREAKTHROUGH NAUSEA Senna/Docusate Sodium (Luann-Colace) 1 tab PO BID [facility] Last Admin: 10/03/17 09:02 Dose: Not Given Sennosides (Senokot) 17.2 mg PO Q12H PRN PRN Reason: Moderate Constipation Sodium Chloride (Ns Flush) 2 ml IV.FLUSH BID [facility] Last Admin: 10/03/17 09:04 Dose: Not Given Sodium Chloride (Ns Flush) 2 ml IV.FLUSH PRN PRN PRN Reason: FLUSH AFTER USING IV ACCESS <Lidya Daily - Last Filed: 10/03/17 15:20> Allergies Allergy/AdvReac Type Severity Reaction Status Date / Time insulin glargine AdvReac Intermediate Edema Verified 10/01/17 16:24 Home Medications Medication Instructions Recorded Confirmed Type amlodipine 10 mg PO DAILY 10/01/17 10/01/17 History escitalopram oxalate [Lexapro] 5 mg PO DAILY 10/01/17 10/01/17 History hydrochlorothiazide 25 mg PO QAM 10/01/17 10/01/17 History insulin aspart U-100 10/01/17 10/01/17 History lisinopril 40 mg PO DAILY 10/01/17 10/01/17 History metoprolol tartrate 50 mg PO BID 10/01/17 10/01/17 History semaglutide [Ozempic] 1 mg SUB-Q QWEEK 10/01/17 10/01/17 History Exam Vital signs: Vital Signs 10/02/17 15:00 10/02/17 16:00 10/02/17 16:39 Temperature 99.3 F Pulse Rate 109 H 109 H 108 H Respiratory Rate 26 H 22 23 Blood Pressure 144/69 H 137/65 Pulse Oximetry 95 96 10/02/17 17:00 10/02/17 18:00 10/02/17 18:01 Temperature Pulse Rate 112 H 115 H 115 H Respiratory Rate 32 H 26 H 25 H Blood Pressure 139/69 177/70 H Pulse Oximetry 98 97 97 10/02/17 19:00 10/02/17 20:00 10/02/17 20:05 Temperature 99.2 F Pulse Rate 116 H 118 H Respiratory Rate 0 L 30 H Blood Pressure 143/69 H 155/76 H Pulse Oximetry 92 L 92 L 96 10/02/17 21:00 10/02/17 22:00 10/02/17 23:00 Temperature Pulse Rate 114 H 109 H 107 H Respiratory Rate 23 20 24 Blood Pressure 144/69 H 134/65 145/69 H Pulse Oximetry 95 93 L 90 L 10/03/17 00:00 10/03/17 01:00 10/03/17 02:00 Temperature 97.9 F Pulse Rate 102 H 101 H 108 H Respiratory Rate 16 16 20 Blood Pressure 142/75 H 137/72 145/78 H Pulse Oximetry 96 96 92 L 10/03/17 03:00 10/03/17 04:00 10/03/17 04:32 Temperature Pulse Rate 108 H 104 H Respiratory Rate 22 20 Blood Pressure 147/69 H 154/79 H Pulse Oximetry 94 L 95 97 10/03/17 05:00 10/03/17 06:00 10/03/17 07:00 Temperature Pulse Rate 106 H 109 H 109 H Respiratory Rate 28 H 10 L 20 Blood Pressure 173/77 H 121/82 141/65 H Pulse Oximetry 95 95 91 L 10/03/17 08:00 10/03/17 08:26 10/03/17 09:00 Temperature 98.7 F Pulse Rate 105 H 110 H Respiratory Rate 22 20 21 Blood Pressure 146/70 H 156/73 H Pulse Oximetry 94 L 97 10/03/17 10:00 10/03/17 11:00 10/03/17 12:00 Temperature 98.2 F Pulse Rate 106 H 106 H 108 H Respiratory Rate 18 22 20 Blood Pressure 144/69 H 152/72 H 141/67 H Pulse Oximetry 99 97 98 10/03/17 13:00 10/03/17 14:00 10/03/17 14:22 Temperature Pulse Rate 103 H 106 H 103 H Respiratory Rate 18 18 18 Blood Pressure 143/69 H 151/74 H Pulse Oximetry 97 93 L Intake & Output 10/02/17 10/03/17 10/03/17 18:59 06:59 18:59 Intake Total 1713 / 1713 1000 / 1000 713 / 713 Output Total 935 / 935 515 / 515 270 / 270 Balance 778 / 778 485 / 485 443 / 443 Weight 77.5 kg Intake: IV 1000 / 1000 1000 / 1000 D5W/1/2 NS Inj 1,000 ML @ 125 1000 / 1000 1000 / 1000 mls/hr IV.CONT .Q8H [facility] Rx#: [id number] Oral 240 / 240 240 / 240 Oral Supplement 473 / 473 473 / 473 Output: Urine 110 / 110 475 / 475 30 / 30 Emesis 200 / 200 200 / 200 Urine Amount (Catheter) 625 / 625 40 / 40 40 / 40 Indwelling Urethral Catheter 625 / 625 40 / 40 40 / 40 Other: Date of Last Bowel Movement 10/02/17 10/02/17 10/03/17 # Bowel Movements 1 1 <Colleen Gamez M - Last Filed: 10/03/17 15:16> Vital signs: Vital Signs 10/02/17 16:00 10/02/17 16:39 10/02/17 17:00 Temperature 99.3 F Pulse Rate 109 H 108 H 112 H Respiratory Rate 22 23 32 H Blood Pressure 137/65 139/69 Pulse Oximetry 96 98 10/02/17 18:00 10/02/17 18:01 10/02/17 19:00 Temperature Pulse Rate 115 H 115 H 116 H Respiratory Rate 26 H 25 H 0 L Blood Pressure 177/70 H 143/69 H Pulse Oximetry 97 97 92 L 10/02/17 20:00 10/02/17 20:05 10/02/17 21:00 Temperature 99.2 F Pulse Rate 118 H 114 H Respiratory Rate 30 H 23 Blood Pressure 155/76 H 144/69 H Pulse Oximetry 92 L 96 95 10/02/17 22:00 10/02/17 23:00 10/03/17 00:00 Temperature 97.9 F Pulse Rate 109 H 107 H 102 H Respiratory Rate 20 24 16 Blood Pressure 134/65 145/69 H 142/75 H Pulse Oximetry 93 L 90 L 96 10/03/17 01:00 10/03/17 02:00 10/03/17 03:00 Temperature Pulse Rate 101 H 108 H 108 H Respiratory Rate 16 20 22 Blood Pressure 137/72 145/78 H 147/69 H Pulse Oximetry 96 92 L 94 L 10/03/17 04:00 10/03/17 04:32 10/03/17 05:00 Temperature Pulse Rate 104 H 106 H Respiratory Rate 20 28 H Blood Pressure 154/79 H 173/77 H Pulse Oximetry 95 97 95 10/03/17 06:00 10/03/17 07:00 10/03/17 08:00 Temperature 98.7 F Pulse Rate 109 H 109 H 105 H Respiratory Rate 10 L 20 22 Blood Pressure 121/82 141/65 H 146/70 H Pulse Oximetry 95 91 L 94 L 10/03/17 08:26 10/03/17 09:00 10/03/17 10:00 Temperature Pulse Rate 110 H 106 H Respiratory Rate 20 21 18 Blood Pressure 156/73 H 144/69 H Pulse Oximetry 97 99 10/03/17 11:00 10/03/17 12:00 10/03/17 13:00 Temperature 98.2 F Pulse Rate 106 H 108 H 103 H Respiratory Rate 22 20 18 Blood Pressure 152/72 H 141/67 H 143/69 H Pulse Oximetry 97 98 97 10/03/17 14:00 10/03/17 14:22 Temperature Pulse Rate 106 H 103 H Respiratory Rate 18 18 Blood Pressure 151/74 H Pulse Oximetry 93 L Intake & Output 10/02/17 10/03/17 10/03/17 18:59 06:59 18:59 Intake Total 1713 / 1713 1000 / 1000 713 / 713 Output Total 935 / 935 515 / 515 270 / 270 Balance 778 / 778 485 / 485 443 / 443 Weight 77.5 kg Intake: IV 1000 / 1000 1000 / 1000 D5W/1/2 NS Inj 1,000 ML @ 125 1000 / 1000 1000 / 1000 mls/hr IV.CONT .Q8H [facility] Rx#: [id number] Oral 240 / 240 240 / 240 Oral Supplement 473 / 473 473 / 473 Output: Urine 110 / 110 475 / 475 30 / 30 Emesis 200 / 200 200 / 200 Urine Amount (Catheter) 625 / 625 40 / 40 40 / 40 Indwelling Urethral Catheter 625 / 625 40 / 40 40 / 40 Other: Date of Last Bowel Movement 10/02/17 10/02/17 10/03/17 # Bowel Movements 1 1 <Lidya Daily - Last Filed: 10/03/17 15:20> Results - Labs CBC & Chem 7: 10/03/17 11:34 10/03/17 11:34 Labs: Laboratory Results - last 24 hr 10/01/17 10/02/17 10/02/17 16:05 14:27 15:13 WBC 7.8 RBC 2.64 L Hgb 8.1 L D Hct 28.7 L MCV 108.7 H MCH 30.8 MCHC 28.4 L RDW 16.8 Plt Count 160 D MPV 9.4 Neut % (Auto) 84.4 H Lymph % (Auto) 8.7 L [place] % (Auto) 6.6 Eos % (Auto) 0.0 Baso % (Auto) 0.3 Neut # (Auto) 6.6 Lymph # (Auto) 0.7 L [place] # (Auto) 0.5 Eos # (Auto) 0.0 Baso # (Auto) 0.0 WBC Differential . Differential Comment Auto diff final PT INR APTT Sodium Potassium Chloride Carbon Dioxide Anion Gap BUN Creatinine Estimated GFR POC Glucose 196 H Random Glucose Hemoglobin A1c 10.3 H Lactic Acid Calcium Phosphorus Magnesium Total Bilirubin Direct Bilirubin Indirect Bilirubin AST ALT Alkaline Phosphatase Total Protein Albumin Triglycerides Cholesterol LDL Cholesterol, Calc HDL Cholesterol Cholesterol/HDL Ratio Lipase Beta-Hydroxybutyric Acd 10/02/17 10/02/17 10/02/17 15:19 15:49 15:49 WBC RBC Hgb Hct MCV MCH MCHC RDW Plt Count MPV Neut % (Auto) Lymph % (Auto) [place] % (Auto) Eos % (Auto) Baso % (Auto) Neut # (Auto) Lymph # (Auto) [place] # (Auto) Eos # (Auto) Baso # (Auto) WBC Differential Differential Comment PT INR APTT Sodium 153 H Potassium 3.4 L D 3.4 L Chloride 122 H Carbon Dioxide 16.1 L Anion Gap 15 BUN 18 Creatinine 1.63 H Estimated GFR POC Glucose Random Glucose 178 H Hemoglobin A1c Lactic Acid 6.5 H* Calcium 7.7 L Phosphorus 1.0 L Magnesium 1.7 Total Bilirubin 0.2 Direct Bilirubin 0.1 Indirect Bilirubin 0.1 AST 57 H ALT 36 Alkaline Phosphatase 99 Total Protein 6.1 L D Albumin 2.7 L Triglycerides Cholesterol LDL Cholesterol, Calc HDL Cholesterol Cholesterol/HDL Ratio Lipase 2393 H Beta-Hydroxybutyric Acd 1.46 H D 10/02/17 10/02/17 10/02/17 16:06 17:02 17:56 WBC RBC Hgb Hct MCV MCH MCHC RDW Plt Count MPV Neut % (Auto) Lymph % (Auto) [place] % (Auto) Eos % (Auto) Baso % (Auto) Neut # (Auto) Lymph # (Auto) [place] # (Auto) Eos # (Auto) Baso # (Auto) WBC Differential Differential Comment PT INR APTT Sodium Potassium Chloride Carbon Dioxide Anion Gap BUN Creatinine Estimated GFR POC Glucose 167 H 171 H 143 H Random Glucose Hemoglobin A1c Lactic Acid Calcium Phosphorus Magnesium Total Bilirubin Direct Bilirubin Indirect Bilirubin AST ALT Alkaline Phosphatase Total Protein Albumin Triglycerides Cholesterol LDL Cholesterol, Calc HDL Cholesterol Cholesterol/HDL Ratio Lipase Beta-Hydroxybutyric Acd 10/02/17 10/02/17 10/02/17 18:33 19:07 19:55 WBC RBC Hgb Hct MCV MCH MCHC RDW Plt Count MPV Neut % (Auto) Lymph % (Auto) [place] % (Auto) Eos % (Auto) Baso % (Auto) Neut # (Auto) Lymph # (Auto) [place] # (Auto) Eos # (Auto) Baso # (Auto) WBC Differential Differential Comment PT INR APTT Sodium Potassium Chloride Carbon Dioxide Anion Gap BUN Creatinine Estimated GFR POC Glucose 155 H 192 H 225 H Random Glucose Hemoglobin A1c Lactic Acid Calcium Phosphorus Magnesium Total Bilirubin Direct Bilirubin Indirect Bilirubin AST ALT Alkaline Phosphatase Total Protein Albumin Triglycerides Cholesterol LDL Cholesterol, Calc HDL Cholesterol Cholesterol/HDL Ratio Lipase Beta-Hydroxybutyric Acd 08/09/18 08/09/18 08/10/18 21:32 23:01 01:10 WBC RBC Hgb Hct MCV MCH MCHC RDW Plt Count MPV Neut % (Auto) Lymph % (Auto) [place] % (Auto) Eos % (Auto) Baso % (Auto) Neut # (Auto) Lymph # (Auto) [place] # (Auto) Eos # (Auto) Baso # (Auto) WBC Differential Differential Comment PT INR APTT Sodium Potassium Chloride Carbon Dioxide Anion Gap BUN Creatinine Estimated GFR POC Glucose 158 H 169 H 105 Random Glucose Hemoglobin A1c Lactic Acid Calcium Phosphorus Magnesium Total Bilirubin Direct Bilirubin Indirect Bilirubin AST ALT Alkaline Phosphatase Total Protein Albumin Triglycerides Cholesterol LDL Cholesterol, Calc HDL Cholesterol Cholesterol/HDL Ratio Lipase Beta-Hydroxybutyric Acd 10/03/17 10/03/17 10/03/17 02:35 04:43 05:43 WBC RBC Hgb Hct MCV MCH MCHC RDW Plt Count MPV Neut % (Auto) Lymph % (Auto) [place] % (Auto) Eos % (Auto) Baso % (Auto) Neut # (Auto) Lymph # (Auto) [place] # (Auto) Eos # (Auto) Baso # (Auto) WBC Differential Differential Comment PT INR APTT Sodium Potassium Chloride Carbon Dioxide Anion Gap BUN Creatinine Estimated GFR POC Glucose 197 H 211 H 194 H Random Glucose Hemoglobin A1c Lactic Acid Calcium Phosphorus Magnesium Total Bilirubin Direct Bilirubin Indirect Bilirubin AST ALT Alkaline Phosphatase Total Protein Albumin Triglycerides Cholesterol LDL Cholesterol, Calc HDL Cholesterol Cholesterol/HDL Ratio Lipase Beta-Hydroxybutyric Acd 10/03/17 10/03/17 10/03/17 06:40 07:28 08:39 WBC RBC Hgb Hct MCV MCH MCHC RDW Plt Count MPV Neut % (Auto) Lymph % (Auto) [place] % (Auto) Eos % (Auto) Baso % (Auto) Neut # (Auto) Lymph # (Auto) [place] # (Auto) Eos # (Auto) Baso # (Auto) WBC Differential Differential Comment PT INR APTT Sodium Potassium Chloride Carbon Dioxide Anion Gap BUN Creatinine Estimated GFR POC Glucose 303 H 356 H 339 H Random Glucose Hemoglobin A1c Lactic Acid Calcium Phosphorus Magnesium Total Bilirubin Direct Bilirubin Indirect Bilirubin AST ALT Alkaline Phosphatase Total Protein Albumin Triglycerides Cholesterol LDL Cholesterol, Calc HDL Cholesterol Cholesterol/HDL Ratio Lipase Beta-Hydroxybutyric Acd 10/03/17 10/03/17 10/03/17 09:38 10:28 11:33 WBC RBC Hgb Hct MCV MCH MCHC RDW Plt Count MPV Neut % (Auto) Lymph % (Auto) [place] % (Auto) Eos % (Auto) Baso % (Auto) Neut # (Auto) Lymph # (Auto) [place] # (Auto) Eos # (Auto) Baso # (Auto) WBC Differential Differential Comment PT INR APTT Sodium Potassium Chloride Carbon Dioxide Anion Gap BUN Creatinine Estimated GFR POC Glucose 237 H 194 H 155 H Random Glucose Hemoglobin A1c Lactic Acid Calcium Phosphorus Magnesium Total Bilirubin Direct Bilirubin Indirect Bilirubin AST ALT Alkaline Phosphatase Total Protein Albumin Triglycerides Cholesterol LDL Cholesterol, Calc HDL Cholesterol Cholesterol/HDL Ratio Lipase Beta-Hydroxybutyric Acd 10/03/17 10/03/17 10/03/17 11:34 11:34 11:34 WBC 10.1 RBC 3.66 L Hgb 11.3 L D Hct 34.3 L MCV 93.9 D MCH 30.8 MCHC 32.8 RDW 15.1 Plt Count 197 MPV 8.4 Neut % (Auto) 79.3 H Lymph % (Auto) 15.7 [place] % (Auto) 4.2 Eos % (Auto) 0.1 Baso % (Auto) 0.7 Neut # (Auto) 8.0 H Lymph # (Auto) 1.6 [place] # (Auto) 0.4 Eos # (Auto) 0.0 Baso # (Auto) 0.1 WBC Differential . Differential Comment Auto diff final PT 11.1 INR 1.1 APTT 21.0 L Sodium 150 H Potassium 3.3 L Chloride 118 H Carbon Dioxide 16.3 L Anion Gap 16 H BUN 10 Creatinine 1.28 H Estimated GFR 51 L POC Glucose Random Glucose 150 H Hemoglobin A1c Lactic Acid Calcium 7.8 L Phosphorus 1.1 L Magnesium 1.5 Total Bilirubin 0.3 Direct Bilirubin Indirect Bilirubin AST 46 H ALT 31 Alkaline Phosphatase 106 Total Protein 5.9 L Albumin 2.4 L Triglycerides 128 Cholesterol 139 LDL Cholesterol, Calc 60 HDL Cholesterol 53.9 Cholesterol/HDL Ratio 2.57 Lipase Beta-Hydroxybutyric Acd 0.22 D 10/03/17 10/03/17 10/03/17 11:34 12:36 13:12 WBC RBC Hgb Hct MCV MCH MCHC RDW Plt Count MPV Neut % (Auto) Lymph % (Auto) [place] % (Auto) Eos % (Auto) Baso % (Auto) Neut # (Auto) Lymph # (Auto) [place] # (Auto) Eos # (Auto) Baso # (Auto) WBC Differential Differential Comment PT INR APTT Sodium Potassium Chloride Carbon Dioxide Anion Gap BUN Creatinine Estimated GFR POC Glucose 126 H 109 Random Glucose Hemoglobin A1c Lactic Acid 8.7 H* Calcium Phosphorus Magnesium Total Bilirubin Direct Bilirubin Indirect Bilirubin AST ALT Alkaline Phosphatase Total Protein Albumin Triglycerides Cholesterol LDL Cholesterol, Calc HDL Cholesterol Cholesterol/HDL Ratio Lipase Beta-Hydroxybutyric Acd 10/03/17 10/03/17 13:41 14:40 WBC RBC Hgb Hct MCV MCH MCHC RDW Plt Count MPV Neut % (Auto) Lymph % (Auto) [place] % (Auto) Eos % (Auto) Baso % (Auto) Neut # (Auto) Lymph # (Auto) [place] # (Auto) Eos # (Auto) Baso # (Auto) WBC Differential Differential Comment PT INR APTT Sodium Potassium Chloride Carbon Dioxide Anion Gap BUN Creatinine Estimated GFR POC Glucose 151 H 214 H Random Glucose Hemoglobin A1c Lactic Acid Calcium Phosphorus Magnesium Total Bilirubin Direct Bilirubin Indirect Bilirubin AST ALT Alkaline Phosphatase Total Protein Albumin Triglycerides Cholesterol LDL Cholesterol, Calc HDL Cholesterol Cholesterol/HDL Ratio Lipase Beta-Hydroxybutyric Acd <Colleen Gamez M - Last Filed: 10/03/17 15:16> - Labs CBC & Chem 7: 10/03/17 11:34 10/03/17 11:34 Labs: Laboratory Results - last 24 hr 10/01/17 10/02/17 10/02/17 16:05 15:19 15:49 WBC RBC Hgb Hct MCV MCH MCHC RDW Plt Count MPV Neut % (Auto) Lymph % (Auto) [place] % (Auto) Eos % (Auto) Baso % (Auto) Neut # (Auto) Lymph # (Auto) [place] # (Auto) Eos # (Auto) Baso # (Auto) WBC Differential Differential Comment PT INR APTT Sodium 153 H Potassium 3.4 L D Chloride 122 H Carbon Dioxide 16.1 L Anion Gap 15 BUN 18 Creatinine 1.63 H Estimated GFR POC Glucose Random Glucose 178 H Hemoglobin A1c 10.3 H Lactic Acid 6.5 H* Calcium 7.7 L Phosphorus 1.0 L Magnesium 1.7 Total Bilirubin 0.2 Direct Bilirubin 0.1 Indirect Bilirubin 0.1 AST 57 H ALT 36 Alkaline Phosphatase 99 Total Protein 6.1 L D Albumin 2.7 L Triglycerides Cholesterol LDL Cholesterol, Calc HDL Cholesterol Cholesterol/HDL Ratio Lipase 2393 H Beta-Hydroxybutyric Acd 1.46 H D 10/02/17 10/02/17 10/02/17 15:49 16:06 17:02 WBC RBC Hgb Hct MCV MCH MCHC RDW Plt Count MPV Neut % (Auto) Lymph % (Auto) [place] % (Auto) Eos % (Auto) Baso % (Auto) Neut # (Auto) Lymph # (Auto) [place] # (Auto) Eos # (Auto) Baso # (Auto) WBC Differential Differential Comment PT INR APTT Sodium Potassium 3.4 L Chloride Carbon Dioxide Anion Gap BUN Creatinine Estimated GFR POC Glucose 167 H 171 H Random Glucose Hemoglobin A1c Lactic Acid Calcium Phosphorus Magnesium Total Bilirubin Direct Bilirubin Indirect Bilirubin AST ALT Alkaline Phosphatase Total Protein Albumin Triglycerides Cholesterol LDL Cholesterol, Calc HDL Cholesterol Cholesterol/HDL Ratio Lipase Beta-Hydroxybutyric Acd 10/02/17 10/02/17 10/02/17 17:56 18:33 19:07 WBC RBC Hgb Hct MCV MCH MCHC RDW Plt Count MPV Neut % (Auto) Lymph % (Auto) [place] % (Auto) Eos % (Auto) Baso % (Auto) Neut # (Auto) Lymph # (Auto) [place] # (Auto) Eos # (Auto) Baso # (Auto) WBC Differential Differential Comment PT INR APTT Sodium Potassium Chloride Carbon Dioxide Anion Gap BUN Creatinine Estimated GFR POC Glucose 143 H 155 H 192 H Random Glucose Hemoglobin A1c Lactic Acid Calcium Phosphorus Magnesium Total Bilirubin Direct Bilirubin Indirect Bilirubin AST ALT Alkaline Phosphatase Total Protein Albumin Triglycerides Cholesterol LDL Cholesterol, Calc HDL Cholesterol Cholesterol/HDL Ratio Lipase Beta-Hydroxybutyric Acd 10/02/17 10/02/17 10/02/17 19:55 21:32 23:01 WBC RBC Hgb Hct MCV MCH MCHC RDW Plt Count MPV Neut % (Auto) Lymph % (Auto) [place] % (Auto) Eos % (Auto) Baso % (Auto) Neut # (Auto) Lymph # (Auto) [place] # (Auto) Eos # (Auto) Baso # (Auto) WBC Differential Differential Comment PT INR APTT Sodium Potassium Chloride Carbon Dioxide Anion Gap BUN Creatinine Estimated GFR POC Glucose 225 H 158 H 169 H Random Glucose Hemoglobin A1c Lactic Acid Calcium Phosphorus Magnesium Total Bilirubin Direct Bilirubin Indirect Bilirubin AST ALT Alkaline Phosphatase Total Protein Albumin Triglycerides Cholesterol LDL Cholesterol, Calc HDL Cholesterol Cholesterol/HDL Ratio Lipase Beta-Hydroxybutyric Acd 10/03/17 10/03/17 10/03/17 01:10 02:35 04:43 WBC RBC Hgb Hct MCV MCH MCHC RDW Plt Count MPV Neut % (Auto) Lymph % (Auto) [place] % (Auto) Eos % (Auto) Baso % (Auto) Neut # (Auto) Lymph # (Auto) [place] # (Auto) Eos # (Auto) Baso # (Auto) WBC Differential Differential Comment PT INR APTT Sodium Potassium Chloride Carbon Dioxide Anion Gap BUN Creatinine Estimated GFR POC Glucose 105 197 H 211 H Random Glucose Hemoglobin A1c Lactic Acid Calcium Phosphorus Magnesium Total Bilirubin Direct Bilirubin Indirect Bilirubin AST ALT Alkaline Phosphatase Total Protein Albumin Triglycerides Cholesterol LDL Cholesterol, Calc HDL Cholesterol Cholesterol/HDL Ratio Lipase Beta-Hydroxybutyric Acd 10/03/17 10/03/17 10/03/17 05:43 06:40 07:28 WBC RBC Hgb Hct MCV MCH MCHC RDW Plt Count MPV Neut % (Auto) Lymph % (Auto) [place] % (Auto) Eos % (Auto) Baso % (Auto) Neut # (Auto) Lymph # (Auto) [place] # (Auto) Eos # (Auto) Baso # (Auto) WBC Differential Differential Comment PT INR APTT Sodium Potassium Chloride Carbon Dioxide Anion Gap BUN Creatinine Estimated GFR POC Glucose 194 H 303 H 356 H Random Glucose Hemoglobin A1c Lactic Acid Calcium Phosphorus Magnesium Total Bilirubin Direct Bilirubin Indirect Bilirubin AST ALT Alkaline Phosphatase Total Protein Albumin Triglycerides Cholesterol LDL Cholesterol, Calc HDL Cholesterol Cholesterol/HDL Ratio Lipase Beta-Hydroxybutyric Acd 10/03/17 10/03/17 10/03/17 08:39 09:38 10:28 WBC RBC Hgb Hct MCV MCH MCHC RDW Plt Count MPV Neut % (Auto) Lymph % (Auto) [place] % (Auto) Eos % (Auto) Baso % (Auto) Neut # (Auto) Lymph # (Auto) [place] # (Auto) Eos # (Auto) Baso # (Auto) WBC Differential Differential Comment PT INR APTT Sodium Potassium Chloride Carbon Dioxide Anion Gap BUN Creatinine Estimated GFR POC Glucose 339 H 237 H 194 H Random Glucose Hemoglobin A1c Lactic Acid Calcium Phosphorus Magnesium Total Bilirubin Direct Bilirubin Indirect Bilirubin AST ALT Alkaline Phosphatase Total Protein Albumin Triglycerides Cholesterol LDL Cholesterol, Calc HDL Cholesterol Cholesterol/HDL Ratio Lipase Beta-Hydroxybutyric Acd 10/03/17 10/03/17 10/03/17 11:33 11:34 11:34 WBC 10.1 RBC 3.66 L Hgb 11.3 L D Hct 34.3 L MCV 93.9 D MCH 30.8 MCHC 32.8 RDW 15.1 Plt Count 197 MPV 8.4 Neut % (Auto) 79.3 H Lymph % (Auto) 15.7 [place] % (Auto) 4.2 Eos % (Auto) 0.1 Baso % (Auto) 0.7 Neut # (Auto) 8.0 H Lymph # (Auto) 1.6 [place] # (Auto) 0.4 Eos # (Auto) 0.0 Baso # (Auto) 0.1 WBC Differential . Differential Comment Auto diff final PT INR APTT Sodium 150 H Potassium 3.3 L Chloride 118 H Carbon Dioxide 16.3 L Anion Gap 16 H BUN 10 Creatinine 1.28 H Estimated GFR 51 L POC Glucose 155 H Random Glucose 150 H Hemoglobin A1c Lactic Acid Calcium 7.8 L Phosphorus 1.1 L Magnesium 1.5 Total Bilirubin 0.3 Direct Bilirubin Indirect Bilirubin AST 46 H ALT 31 Alkaline Phosphatase 106 Total Protein 5.9 L Albumin 2.4 L Triglycerides 128 Cholesterol 139 LDL Cholesterol, Calc 60 HDL Cholesterol 53.9 Cholesterol/HDL Ratio 2.57 Lipase Beta-Hydroxybutyric Acd 0.22 D 10/03/17 10/03/17 10/03/17 11:34 11:34 12:36 WBC RBC Hgb Hct MCV MCH MCHC RDW Plt Count MPV Neut % (Auto) Lymph % (Auto) [place] % (Auto) Eos % (Auto) Baso % (Auto) Neut # (Auto) Lymph # (Auto) [place] # (Auto) Eos # (Auto) Baso # (Auto) WBC Differential Differential Comment PT 11.1 INR 1.1 APTT 21.0 L Sodium Potassium Chloride Carbon Dioxide Anion Gap BUN Creatinine Estimated GFR POC Glucose 126 H Random Glucose Hemoglobin A1c Lactic Acid 8.7 H* Calcium Phosphorus Magnesium Total Bilirubin Direct Bilirubin Indirect Bilirubin AST ALT Alkaline Phosphatase Total Protein Albumin Triglycerides Cholesterol LDL Cholesterol, Calc HDL Cholesterol Cholesterol/HDL Ratio Lipase Beta-Hydroxybutyric Acd 10/03/17 10/03/17 10/03/17 13:12 13:41 14:40 WBC RBC Hgb Hct MCV MCH MCHC RDW Plt Count MPV Neut % (Auto) Lymph % (Auto) [place] % (Auto) Eos % (Auto) Baso % (Auto) Neut # (Auto) Lymph # (Auto) [place] # (Auto) Eos # (Auto) Baso # (Auto) WBC Differential Differential Comment PT INR APTT Sodium Potassium Chloride Carbon Dioxide Anion Gap BUN Creatinine Estimated GFR POC Glucose 109 151 H 214 H Random Glucose Hemoglobin A1c Lactic Acid Calcium Phosphorus Magnesium Total Bilirubin Direct Bilirubin Indirect Bilirubin AST ALT Alkaline Phosphatase Total Protein Albumin Triglycerides Cholesterol LDL Cholesterol, Calc HDL Cholesterol Cholesterol/HDL Ratio Lipase Beta-Hydroxybutyric Acd <Lidya Daily - Last Filed: 10/03/17 15:20> Assessment and Plan (1) Acute pancreatitis Status: Acute Code(s): K85.90 - Acute pancreatitis without necrosis or infection, unspecified (2) Fatty liver disease, nonalcoholic Status: Acute Code(s): K76.0 - Fatty (change of) liver, not elsewhere classified (3) Anemia Status: Acute Code(s): D64.9 - Anemia, unspecified - Plan Acute pancreatitis, symptoms of generalized mid abdominal pain and right lower quadrant. Patient started feeling bad about 1 week ago and was found unresponsive in the floor at her home. Currently patient denies any nausea or vomiting, or dyspepsia. Currently patient is weak and fatigued and does show some mild anxiety and possible tremors. Confirmed on CT scan with some mild patchy parenchymal necrosis. No ductal dilation seen DKA , lactic acidosis noted on admission. Currently patient's being managed in the intensive care setting, still has some mild confusion and probable encephalopathy. Anemia current hemoglobin 11.3 this may be chronic, PT/INR 1.1 and normal bilirubin AST [address] scan showed enlarged and fatty infiltrated liver fatty, will order liver lab workup. small ascites and diffuse mesenteric edema, per CT scan Elevated AST, CT scan shows enlarged and infiltrated fatty liver. Will initiate liver workup labs to evaluate further No family history of colon cancer; no EGD in the past ;questionable colonoscopy in the past but unknown findings. Once patient is more stable and feeling better consider colonoscopy possible outpatient dependent on patient's symptoms. Plan Diet n.p.o. IV hydration Pain meds per attending Monitor labs, liver workup pending PPI Anti-emetics Bowel regimen Further recommendations to follow Patient was seen per myself and Dr. Daily, this note was written on her behalf <Colleen Gamez - Last Filed: 10/03/17 15:16> (1) Acute pancreatitis Status: Acute Code(s): K85.90 - Acute pancreatitis without necrosis or infection, unspecified (2) Fatty liver disease, nonalcoholic Status: Acute Code(s): K76.0 - Fatty (change of) liver, not elsewhere classified (3) Anemia Status: Acute Code(s): D64.9 - Anemia, unspecified - Attending Attestation seen, examined agree with above she started recently Ozempic -2 weeks ago -possible side effect mrcp will be ordered to further evaluate the cause of her pancreatitis <Lidya Daily - Last Filed: 10/03/17 15:20>
[2017-10-03] MEDS ORDERED: Potassium Phosphate Inj 30 MMOL in Sodium Chlor 0.9% Inj 250 ML IV.SIG ONE (15:00)
[2017-10-03] MEDS: Insulin NovoLIN Regular Correctional Sugar Inj SQ SCH (18:06)
[2017-10-03] MEDS: Sod Chloride 0.9% Inj 1,000 ML IV.SIG SCH (19:00)
[2017-10-04 00:15] LABS: Potassium 3.1 meq/L (3.5-5.1)
[2017-10-04 00:20] LABS: Phosphorus 1.8 mg/dL (2.5-4.9)
[2017-10-04] MEDS ORDERED: Potassium Phosphate Inj 30 MMOL in Sodium Chlor 0.9% Inj 250 ML IV.SIG ONE (02:32)
[2017-10-04] MEDS: Sod Chloride 0.9% Inj 1,000 ML IV.SIG SCH ×3 (02:57→22:53)
[2017-10-04] MEDS: Insulin NovoLIN Regular Correctional Sugar Inj SQ SCH ×5 (03:08→23:56)
[2017-10-04] MEDS: Chlorhexidine Gluconate 2% 1 Pack (2 Cloths) TOPICAL SCH (06:09)
[2017-10-04] MEDS: Insulin Detemir Inj 1,000 UNIT/10 ML Vial SQ SCH ×2 (08:57→21:19)
[2017-10-04 09:06] LABS: Baso % (Auto) 0.5 % (0.0-2.0); Eos # (Auto) 0.1 th/mm3 (0.0-0.4); Eos % (Auto) 0.8 % (0.0-4.0); Hematocrit 33.4 % (35.0-46.0); Lymph # (Auto) 1.3 th/mm3 (1.0-4.8); Lymph % (Auto) 19.7 % (9.0-44.0); Mean Corpuscular Hemoglobin 30.8 pg (27.0-34.0); Mean Corpuscular Volume 93.5 fL (80.0-100.0); Mean Platelet Volume 8.3 fL (7.0-11.0); Mono # (Auto) 0.4 th/mm3 (0.0-0.9); Neut # (Auto) 4.9 th/mm3 (1.8-7.7); Platelet Count 153 th/mm3 (150-450); Red Blood Count 3.57 mil/mm3 (4.00-5.30); Red Cell Distribution Width 14.7 % (11.6-17.2); White Blood Count 6.6 th/mm3 (4.0-11.0)
[2017-10-04 09:12] LABS: Activated Partial Thrombo Time 21.5 sec (24.3-30.1); INR 1.1 Ratio; Prothrombin Time 10.9 sec (9.8-11.6)
[2017-10-04 09:27] LABS: Albumin 2.2 g/dL (3.4-5.0); Calcium 7.4 mg/dL (8.5-10.1); Carbon Dioxide 21.3 meq/L (21.0-32.0); Magnesium 1.4 mg/dL (1.5-2.5); Potassium 3.5 meq/L (3.5-5.1); Total Protein 5.8 g/dL (6.4-8.2)
--- NOTE | 2017-10-04 10:38 | MR ---
EXAM DATE: 10/04/2017 10:34 AM EDT AGE/SEX: 62 years / Female INDICATIONS: Pancreatitis. CLINICAL DATA: This is the patient's initial encounter. Patient reports that signs and symptoms have been present for 4 - 6 days and indicates a pain score of 2/10. MEDICAL/SURGICAL HISTORY: Diabetes mellitus type II. Hypertension. Hysterectomy. COMPARISON: [facility] – [place], CT ABDOMEN & PELVIS W CONTRAST, 10/02/2017. . TECHNIQUE: Multiplanar, multisequence images of the abdomen were obtained without contrast including dedicated cholangiographic images. FINDINGS: Liver: The liver is homogeneous and normal in signal intensity with no focal defects. Intrahepatic Bile Ducts: There is no intrahepatic biliary ductal dilatation. Common Bile Duct: The common bile duct is normal in caliber measuring 3 to 4 mm. No filling defects or obstructing lesions are identified. Gallbladder: The gallbladder is normal with no evidence for cholelithiasis, gallbladder wall thicken ing, or pericholecystic fluid. Pancreas: Inflammatory changes of the pancreas. The pancreatic duct is normal in caliber with no simon ling defects, or obstructing lesions identified. Other: Bibasilar densities and small pleural effusions. CONCLUSION: 1. Acute pancreatitis. 2. No intra or extrahepatic biliary duct dilatation 3. Hepatic steatosis. Electronically signed by: Mike Chatterjee MD 10/04/2017 10:37 AM EDT
--- NOTE | 2017-10-04 10:40 | P.PNCC ---
Subjective Subjective Remarks/Hospital Course: 62yF brought in by EMS for unresponsiveness. The patient has a history of insulin dependent diabetes, and as per her sister has "not been feeling well and vomiting" for the past 2 days. She says that the patient looked tired and dehydrated this morning, but when she came back from shopping this afternoon she found her on the floor unresponsive. EMS reports that the patient's glucose read "high" on their glucometer. Per ER documentation, sister reported no history of DKA in the past. Patient was noted to have severe hyperglycemia with blood glucose greater than 1000 and was in severe metabolic acidosis along with an elevated lactic acid. She was diagnosed to be in DKA as well and was started on insulin drip per DKA protocol. She has received 3 L normal saline bolus. She was accepted for admission by critical care medicine service. When I evaluated the patient in the ER she was minimally responsive in the ER stretcher, stuporous, not following commands. The patient is altered and unable to provide meaningful contribution to HPI or ROS. SUBJECTIVE: 10/02: Currently on D5 half-normal saline due to elevated sodium remains nauseous. Compazine currently added for nausea. her urine output noted. Creatinine slowly normalizing currently 1.8. Less encephalopathic 10/03: Drowsy, arousable. Remains on insulin drip currently awaiting a.m. labs. Acute pancreatitis noted on CT abdomen pelvis done on 10/02. 10/04: Awake and alert, following commands. Still complaining of some abdominal discomfort and had nausea yesterday hence did not have much p.o. intake. Awaiting MRCP. Objective Vital Signs / I&O: Vital Signs 10/03/17 11:00 10/03/17 12:00 10/03/17 13:00 Temperature 98.2 F Pulse Rate 106 H 108 H 103 H Respiratory Rate 22 20 18 Blood Pressure 152/72 H 141/67 H 143/69 H Pulse Oximetry 97 98 97 10/03/17 14:00 10/03/17 14:22 10/03/17 15:00 Temperature Pulse Rate 106 H 103 H 109 H Respiratory Rate 18 18 25 H Blood Pressure 151/74 H 142/69 H Pulse Oximetry 93 L 94 L 10/03/17 16:00 10/03/17 17:00 10/03/17 18:00 Temperature 98.0 F Pulse Rate 107 H 114 H 108 H Respiratory Rate 32 H 28 H 27 H Blood Pressure 159/77 H 172/92 H 156/77 H Pulse Oximetry 96 93 L 91 L 10/03/17 19:00 10/03/17 19:01 10/03/17 20:00 Temperature 99.3 F Pulse Rate 113 H 113 H 113 H Respiratory Rate 35 H 31 H 31 H Blood Pressure 163/81 H 154/94 H Pulse Oximetry 10/03/17 20:49 10/03/17 21:00 10/03/17 22:00 Temperature Pulse Rate 119 H 116 H 115 H Respiratory Rate 18 26 H 22 Blood Pressure 166/84 H 154/74 H Pulse Oximetry 100 100 10/03/17 23:00 10/04/17 00:00 10/04/17 00:49 Temperature 99 F Pulse Rate 110 H 101 H 103 H Respiratory Rate 24 19 24 Blood Pressure 161/78 H 154/79 H Pulse Oximetry 10/04/17 01:00 10/04/17 02:00 10/04/17 03:00 Temperature Pulse Rate 106 H 116 H 104 H Respiratory Rate 22 34 H 19 Blood Pressure 167/84 H 172/87 H 165/80 H Pulse Oximetry 93 L 87 L 93 L 10/04/17 04:00 10/04/17 05:00 10/04/17 05:24 Temperature 98.8 F Pulse Rate 102 H 105 H 108 H Respiratory Rate 18 19 22 Blood Pressure 146/73 H 147/70 H Pulse Oximetry 95 93 L 10/04/17 06:00 10/04/17 07:00 10/04/17 08:28 Temperature 98.2 F Pulse Rate 97 H 99 H Respiratory Rate 28 H 22 Blood Pressure 147/72 H Pulse Oximetry 92 L 93 L Intake & Output 10/03/17 10/04/17 10/04/17 18:59 06:59 18:59 Intake Total 1038 / 1038 1200 / 1200 Output Total 1070 / 1070 800 / 800 Balance -32 / -32 400 / 400 Weight 81.5 kg Intake: IV 1000 / 1000 NS Inj 1,000 ML @ 125 mls/hr IV 1000 / 1000 .SIG .Q8H [facility] Rx#:[id number] Oral 565 / 565 200 / 200 Oral Supplement 473 / 473 Output: Urine 30 / 30 Emesis 200 / 200 Urine Amount (Catheter) 840 / 840 800 / 800 Indwelling Urethral Catheter 840 / 840 800 / 800 Other: Date of Last Bowel Movement 10/03/17 10/03/17 # Bowel Movements 2 Result Diagrams: 10/04/17 08:46 10/04/17 08:46 Imaging: Chest X-Ray 10/01/17 15:52 CONCLUSION: Negative examination. Head CT 10/01/17 15:53 CONCLUSION: 1. Negative CT Head non contrast. . Abdomen/Pelvis CT 10/02/17 00:00 CONCLUSION: 1. CT findings consistent with acute pancreatitis in the proper clinical setting. Some mild patchy parenchymal necrosis is also possible. No associated organized fluid collection. No perceptible ductal dilatation. 2. Small ascites. Diffuse mesenteric edema. 3. Enlarged and fatty infiltrated liver. 4. Consolidation of the visualized lung bases. Objective Remarks: GENERAL: 62-year-old AA female resting in bed in mild distress secondary to abdominal pain SKIN: Warm and dry. No rash HEAD: Atraumatic. Normocephalic. EYES: Pupils equal and round about 3 mm bilaterally and reactive. No scleral icterus. No injection or drainage. ENT: No nasal bleeding or discharge. Mucous membranes pink and moist. NECK: Trachea midline. No JVD. CARDIOVASCULAR: Tachycardic, RR. S1, S2 predose for without murmur RESPIRATORY: No accessory muscle use. Clear to auscultation. Breath sounds equal bilaterally. GASTROINTESTINAL: Abdomen soft, tender to diffuse palpation especially epigastric. Hypoactive bowel sounds appreciated.. MUSCULOSKELETAL: Extremities without significant peripheral edema. No obvious deformities. NEUROLOGICAL: Drowsy, easily arousable. No obvious cranial nerve deficits. Motor grossly within normal limits. Five out of 5 muscle strength in the arms and legs. Normal speech. PSYCHIATRIC: Appropriate mood and affect; insight and judgment normal. Assessment and Plan - Assessment and Plan Plan: 62-year-old female with: Acute toxic metabolic encephalopathy Hyperosmolar state Diabetic ketoacidosis Lactic acidosis Dehydration Nausea vomiting History of depression Essential hypertension Leukocytosis Macrocytic anemia Lactic acidosis Hypoalbuminemia Acute Pancreatitis Acute kidney injury Hypernatremia/iatrogenic Plan: Neuro: Follow neuro status, avoid sedatives and narcotics. Neurologic status improved with correction of hyperglycemia and metabolic acidosis. Okay to restart escitalopram 0.5 mg daily fo depression Cardiovascular: S/p fluid resuscitation. Holding hydrochlorothiazide 25 mg daily lisinopril 40 mg a day and amlodipine 10 mg daily. Okay to restart metoprolol 50 mg twice daily. Serial lactates currently trending downward at 6.5 Pulmonary: Supplemental O2, bronchodilators as needed. GI/liver: CT abdomen/pelvis shows acute pancreatitis. GI following. Awaiting MRCP. Clear liquid diet as tolerated. Renal/: IV hydration, strict intake output, monitor and replete electrolytes, follow BN creatinine. ID: Leukocytosis possibly stress response. No antibiotics at this time. Heme: Follow CBC. No indication for transfusion of blood products at this time Endocrine: On insulin drip per DKA protocol when admitted which has since been discontinued on 10/03 with Levemir/sliding scale insulin. Prophylaxis: PPI/SCDs/ subcutaneous heparin Consult and transfer to hospitalist service for further medical management. Critical care will be signing off, please reconsult if needed.
[2017-10-04] MEDS: Escitalopram 10 MG Tablet PO SCH (10:48)
[2017-10-04] MEDS: Senna/Docusate Sodium 8.6/50 MG Tablet PO SCH ×2 (10:48→21:20)
[2017-10-04] MEDS: Metoprolol Tartrate 50 MG Tablet PO SCH ×2 (10:48→21:20)
[2017-10-04] MEDS: Pantoprazole Inj 40 MG Vial IV.PUSH SCH (10:48)
[2017-10-04] MEDS: Dextrose 5%/NaCl 0.9% Inj 1,000 ML IV.CONT SCH ×2 (12:33→22:56)
[2017-10-04] MEDS: Heparin - SQ 10,000 UNITS/ML Vial SQ SCH ×2 (12:46→21:18)
--- NOTE | 2017-10-04 12:52 | P.PNGI ---
Subjective Interval history: Pt is sitting up in chair, just had a loose BM, some nausea but no vomiting, mild abd cramps, no melena or hematochezia. <Judy Rey - Last Filed: 10/04/17 12:54> Physical Exam Vital signs: Vital Signs 10/03/17 13:00 10/03/17 14:00 10/03/17 14:22 Temperature Pulse Rate 103 H 106 H 103 H Respiratory Rate 18 18 18 Blood Pressure 143/69 H 151/74 H Pulse Oximetry 97 93 L 10/03/17 15:00 10/03/17 16:00 10/03/17 17:00 Temperature 98.0 F Pulse Rate 109 H 107 H 114 H Respiratory Rate 25 H 32 H 28 H Blood Pressure 142/69 H 159/77 H 172/92 H Pulse Oximetry 94 L 96 93 L 10/03/17 18:00 10/03/17 19:00 10/03/17 19:01 Temperature Pulse Rate 108 H 113 H 113 H Respiratory Rate 27 H 35 H 31 H Blood Pressure 156/77 H 163/81 H Pulse Oximetry 91 L 10/03/17 20:00 10/03/17 20:49 10/03/17 21:00 Temperature 99.3 F Pulse Rate 113 H 119 H 116 H Respiratory Rate 31 H 18 26 H Blood Pressure 154/94 H 166/84 H Pulse Oximetry 100 100 10/03/17 22:00 10/03/17 23:00 10/04/17 00:00 Temperature 99 F Pulse Rate 115 H 110 H 101 H Respiratory Rate 22 24 19 Blood Pressure 154/74 H 161/78 H 154/79 H Pulse Oximetry 10/04/17 00:49 10/04/17 01:00 10/04/17 02:00 Temperature Pulse Rate 103 H 106 H 116 H Respiratory Rate 24 22 34 H Blood Pressure 167/84 H 172/87 H Pulse Oximetry 93 L 87 L 10/04/17 03:00 10/04/17 04:00 10/04/17 05:00 Temperature 98.8 F Pulse Rate 104 H 102 H 105 H Respiratory Rate 19 18 19 Blood Pressure 165/80 H 146/73 H 147/70 H Pulse Oximetry 93 L 95 93 L 10/04/17 05:24 10/04/17 06:00 10/04/17 07:00 Temperature 98.2 F Pulse Rate 108 H 97 H 99 H Respiratory Rate 22 28 H 23 Blood Pressure 147/72 H 139/69 Pulse Oximetry 92 L 95 10/04/17 08:00 10/04/17 08:28 10/04/17 09:00 Temperature 98.2 F Pulse Rate 98 H 99 H 97 H Respiratory Rate 30 H 22 20 Blood Pressure 134/64 142/65 H Pulse Oximetry 96 93 L 98 10/04/17 10:23 Temperature Pulse Rate 105 H Respiratory Rate Blood Pressure Pulse Oximetry Intake & Output 10/03/17 10/04/17 10/04/17 18:59 06:59 18:59 Intake Total 1038 / 1038 1200 / 1200 Output Total 1070 / 1070 800 / 800 Balance -32 / -32 400 / 400 Weight 81.5 kg Intake: IV 1000 / 1000 NS Inj 1,000 ML @ 125 mls/hr IV 1000 / 1000 .SIG .Q8H [facility] Rx#:[id number] Oral 565 / 565 200 / 200 Oral Supplement 473 / 473 Output: Urine 30 / 30 Emesis 200 / 200 Urine Amount (Catheter) 840 / 840 800 / 800 Indwelling Urethral Catheter 840 / 840 800 / 800 Other: Date of Last Bowel Movement 10/03/17 10/03/17 # Bowel Movements 2 - Constitutional no acute distress - Routine HEENT Exam Head: Present: normocephalic Eye: Present: PERRL - Routine Neck Exam Present: supple - Routine Respiratory Exam Present: CTA bilaterally - Routine Cardiovascular Exam Present: RRR - Routine Abdominal Exam Present: soft, normoactive bowel sounds, tenderness - Routine Extremities Exam Absent: edema - Routine Skin Exam Present: intact, dry. Absent: jaundice - Routine Neurological Exam Present: alert, oriented X3 - Urinary Catheter Management Indwelling Urethral Catheter Cath placed during this visit: yes, but has since been removed by the nurse Reason for continuing: Decision to DC catheter Insertion date: 10/01/17 Insertion time: 16:07 Removal date: 10/04/17 Removal time: 08:30 <Judy Rey - Last Filed: 10/04/17 12:54> Vital signs: Vital Signs 10/03/17 16:00 10/03/17 17:00 10/03/17 18:00 Temperature 98.0 F Pulse Rate 107 H 114 H 108 H Respiratory Rate 32 H 28 H 27 H Blood Pressure 159/77 H 172/92 H 156/77 H Pulse Oximetry 96 93 L 91 L 10/03/17 19:00 10/03/17 19:01 10/03/17 20:00 Temperature 99.3 F Pulse Rate 113 H 113 H 113 H Respiratory Rate 35 H 31 H 31 H Blood Pressure 163/81 H 154/94 H Pulse Oximetry 10/03/17 20:49 10/03/17 21:00 10/03/17 22:00 Temperature Pulse Rate 119 H 116 H 115 H Respiratory Rate 18 26 H 22 Blood Pressure 166/84 H 154/74 H Pulse Oximetry 100 100 10/03/17 23:00 10/04/17 00:00 10/04/17 00:49 Temperature 99 F Pulse Rate 110 H 101 H 103 H Respiratory Rate 24 19 24 Blood Pressure 161/78 H 154/79 H Pulse Oximetry 10/04/17 01:00 10/04/17 02:00 10/04/17 03:00 Temperature Pulse Rate 106 H 116 H 104 H Respiratory Rate 22 34 H 19 Blood Pressure 167/84 H 172/87 H 165/80 H Pulse Oximetry 93 L 87 L 93 L 10/04/17 04:00 10/04/17 05:00 10/04/17 05:24 Temperature 98.8 F Pulse Rate 102 H 105 H 108 H Respiratory Rate 18 19 22 Blood Pressure 146/73 H 147/70 H Pulse Oximetry 95 93 L 10/04/17 06:00 10/04/17 07:00 10/04/17 08:00 Temperature 98.2 F 98.2 F Pulse Rate 97 H 99 H 98 H Respiratory Rate 28 H 23 30 H Blood Pressure 147/72 H 139/69 134/64 Pulse Oximetry 92 L 95 96 10/04/17 08:28 10/04/17 09:00 10/04/17 10:00 Temperature Pulse Rate 99 H 97 H 105 H Respiratory Rate 22 20 Blood Pressure 142/65 H Pulse Oximetry 93 L 98 10/04/17 10:23 10/04/17 12:00 10/04/17 13:02 Temperature 98.2 F Pulse Rate 105 H 100 H 100 H Respiratory Rate 24 27 H Blood Pressure Pulse Oximetry Intake & Output 10/03/17 10/04/17 10/04/17 18:59 06:59 18:59 Intake Total 1038 / 1038 1200 / 1200 Output Total 1070 / 1070 800 / 800 Balance -32 / -32 400 / 400 Weight 81.5 kg Intake: IV 1000 / 1000 NS Inj 1,000 ML @ 125 mls/hr IV 1000 / 1000 .SIG .Q8H [facility] Rx#:[id number] Oral 565 / 565 200 / 200 Oral Supplement 473 / 473 Output: Urine 30 / 30 Emesis 200 / 200 Urine Amount (Catheter) 840 / 840 800 / 800 Indwelling Urethral Catheter 840 / 840 800 / 800 Other: Date of Last Bowel Movement 10/03/17 10/03/17 10/04/17 # Bowel Movements 2 - Urinary Catheter Management Indwelling Urethral Catheter Cath placed during this visit: no <Lidya Daily - Last Filed: 10/04/17 15:11> Results - Labs CBC & Chem 7: 10/04/17 08:46 10/04/17 08:46 Laboratory Results - last 24 hr 10/03/17 10/03/17 10/03/17 13:12 13:41 14:40 WBC RBC Hgb Hct MCV MCH MCHC RDW Plt Count MPV Neut % (Auto) Lymph % (Auto) [place] % (Auto) Eos % (Auto) Baso % (Auto) Neut # (Auto) Lymph # (Auto) [place] # (Auto) Eos # (Auto) Baso # (Auto) WBC Differential Differential Comment PT INR APTT Sodium Potassium Chloride Carbon Dioxide Anion Gap BUN Creatinine Estimated GFR POC Glucose 109 151 H 214 H Random Glucose Lactic Acid Calcium Prot Corrected Calcium Phosphorus Magnesium Total Bilirubin AST ALT Alkaline Phosphatase Total Protein Albumin Amylase Lipase Tumor Marker AFP 10/03/17 10/03/17 10/03/17 17:57 18:05 22:56 WBC RBC Hgb Hct MCV MCH MCHC RDW Plt Count MPV Neut % (Auto) Lymph % (Auto) [place] % (Auto) Eos % (Auto) Baso % (Auto) Neut # (Auto) Lymph # (Auto) [place] # (Auto) Eos # (Auto) Baso # (Auto) WBC Differential Differential Comment PT INR APTT Sodium Potassium 3.1 L Chloride Carbon Dioxide Anion Gap BUN Creatinine Estimated GFR POC Glucose 237 H Random Glucose Lactic Acid Calcium Prot Corrected Calcium Phosphorus 1.8 L Magnesium Total Bilirubin AST ALT Alkaline Phosphatase Total Protein Albumin Amylase Lipase Tumor Marker AFP 2.7 10/04/17 10/04/17 10/04/17 00:21 06:01 06:03 WBC RBC Hgb Hct MCV MCH MCHC RDW Plt Count MPV Neut % (Auto) Lymph % (Auto) [place] % (Auto) Eos % (Auto) Baso % (Auto) Neut # (Auto) Lymph # (Auto) [place] # (Auto) Eos # (Auto) Baso # (Auto) WBC Differential Differential Comment PT INR APTT Sodium Potassium Chloride Carbon Dioxide Anion Gap BUN Creatinine Estimated GFR POC Glucose 116 H 44 L* 43 L* Random Glucose Lactic Acid Calcium Prot Corrected Calcium Phosphorus Magnesium Total Bilirubin AST ALT Alkaline Phosphatase Total Protein Albumin Amylase Lipase Tumor Marker AFP 10/04/17 10/04/17 10/04/17 06:36 08:28 08:46 WBC RBC Hgb Hct MCV MCH MCHC RDW Plt Count MPV Neut % (Auto) Lymph % (Auto) [place] % (Auto) Eos % (Auto) Baso % (Auto) Neut # (Auto) Lymph # (Auto) [place] # (Auto) Eos # (Auto) Baso # (Auto) WBC Differential Differential Comment PT 10.9 INR 1.1 APTT 21.5 L Sodium Potassium Chloride Carbon Dioxide Anion Gap BUN Creatinine Estimated GFR POC Glucose 142 H 69 Random Glucose Lactic Acid Calcium Prot Corrected Calcium Phosphorus Magnesium Total Bilirubin AST ALT Alkaline Phosphatase Total Protein Albumin Amylase Lipase Tumor Marker AFP 10/04/17 10/04/17 10/04/17 08:46 08:46 08:46 WBC 6.6 RBC 3.57 L Hgb 11.0 L Hct 33.4 L MCV 93.5 MCH 30.8 MCHC 33.0 RDW 14.7 Plt Count 153 MPV 8.3 Neut % (Auto) 73.0 H Lymph % (Auto) 19.7 [place] % (Auto) 6.0 Eos % (Auto) 0.8 Baso % (Auto) 0.5 Neut # (Auto) 4.9 Lymph # (Auto) 1.3 [place] # (Auto) 0.4 Eos # (Auto) 0.1 Baso # (Auto) 0.0 WBC Differential . Differential Comment Auto diff final PT INR APTT Sodium 144 Potassium 3.5 Chloride 114 H Carbon Dioxide 21.3 Anion Gap 9 BUN 6 L Creatinine 0.82 Estimated GFR 86 L POC Glucose Random Glucose 78 Lactic Acid 2.7 H Calcium 7.4 L* Prot Corrected Calcium 8.1 L Phosphorus 3.0 D Magnesium 1.4 L Total Bilirubin 0.4 AST 39 H ALT 27 Alkaline Phosphatase 112 Total Protein 5.8 L Albumin 2.2 L Amylase 93 Lipase 745 H Tumor Marker AFP 10/04/17 10/04/17 10:20 12:31 WBC RBC Hgb Hct MCV MCH MCHC RDW Plt Count MPV Neut % (Auto) Lymph % (Auto) [place] % (Auto) Eos % (Auto) Baso % (Auto) Neut # (Auto) Lymph # (Auto) [place] # (Auto) Eos # (Auto) Baso # (Auto) WBC Differential Differential Comment PT INR APTT Sodium Potassium Chloride Carbon Dioxide Anion Gap BUN Creatinine Estimated GFR POC Glucose 102 265 H Random Glucose Lactic Acid Calcium Prot Corrected Calcium Phosphorus Magnesium Total Bilirubin AST ALT Alkaline Phosphatase Total Protein Albumin Amylase Lipase Tumor Marker AFP Microbiology 10/01/17 16:05 Blood - Peripheral Aerobic Blood Culture - Preliminary No growth in 3 days 10/01/17 16:05 Blood - Peripheral Anaerobic Blood Culture - Final QNS - See aerobic report. 10/01/17 16:00 Blood - Peripheral Aerobic Blood Culture - Preliminary No growth in 3 days 10/01/17 16:00 Blood - Peripheral Anaerobic Blood Culture - Preliminary No growth in 3 days - Imaging Impressions Cholangiopancreatography MRI 10/04/17 00:00 CONCLUSION: 1. Acute pancreatitis. 2. No intra or extrahepatic biliary duct dilatation 3. Hepatic steatosis. <Jduy Rey - Last Filed: 10/04/17 12:54> - Labs CBC & Chem 7: 10/04/17 08:46 10/04/17 08:46 Laboratory Results - last 24 hr 10/03/17 10/03/17 10/03/17 17:57 18:05 22:56 WBC RBC Hgb Hct MCV MCH MCHC RDW Plt Count MPV Neut % (Auto) Lymph % (Auto) [place] % (Auto) Eos % (Auto) Baso % (Auto) Neut # (Auto) Lymph # (Auto) [place] # (Auto) Eos # (Auto) Baso # (Auto) WBC Differential Differential Comment PT INR APTT Sodium Potassium 3.1 L Chloride Carbon Dioxide Anion Gap BUN Creatinine Estimated GFR POC Glucose 237 H Random Glucose Lactic Acid Calcium Prot Corrected Calcium Phosphorus 1.8 L Magnesium Total Bilirubin AST ALT Alkaline Phosphatase Total Protein Albumin Amylase Lipase Tumor Marker AFP 2.7 10/04/17 10/04/17 10/04/17 00:21 06:01 06:03 WBC RBC Hgb Hct MCV MCH MCHC RDW Plt Count MPV Neut % (Auto) Lymph % (Auto) [place] % (Auto) Eos % (Auto) Baso % (Auto) Neut # (Auto) Lymph # (Auto) [place] # (Auto) Eos # (Auto) Baso # (Auto) WBC Differential Differential Comment PT INR APTT Sodium Potassium Chloride Carbon Dioxide Anion Gap BUN Creatinine Estimated GFR POC Glucose 116 H 44 L* 43 L* Random Glucose Lactic Acid Calcium Prot Corrected Calcium Phosphorus Magnesium Total Bilirubin AST ALT Alkaline Phosphatase Total Protein Albumin Amylase Lipase Tumor Marker AFP 10/04/17 10/04/17 10/04/17 06:36 08:28 08:46 WBC RBC Hgb Hct MCV MCH MCHC RDW Plt Count MPV Neut % (Auto) Lymph % (Auto) [place] % (Auto) Eos % (Auto) Baso % (Auto) Neut # (Auto) Lymph # (Auto) [place] # (Auto) Eos # (Auto) Baso # (Auto) WBC Differential Differential Comment PT 10.9 INR 1.1 APTT 21.5 L Sodium Potassium Chloride Carbon Dioxide Anion Gap BUN Creatinine Estimated GFR POC Glucose 142 H 69 Random Glucose Lactic Acid Calcium Prot Corrected Calcium Phosphorus Magnesium Total Bilirubin AST ALT Alkaline Phosphatase Total Protein Albumin Amylase Lipase Tumor Marker AFP 10/04/17 10/04/17 10/04/17 08:46 08:46 08:46 WBC 6.6 RBC 3.57 L Hgb 11.0 L Hct 33.4 L MCV 93.5 MCH 30.8 MCHC 33.0 RDW 14.7 Plt Count 153 MPV 8.3 Neut % (Auto) 73.0 H Lymph % (Auto) 19.7 [place] % (Auto) 6.0 Eos % (Auto) 0.8 Baso % (Auto) 0.5 Neut # (Auto) 4.9 Lymph # (Auto) 1.3 [place] # (Auto) 0.4 Eos # (Auto) 0.1 Baso # (Auto) 0.0 WBC Differential . Differential Comment Auto diff final PT INR APTT Sodium 144 Potassium 3.5 Chloride 114 H Carbon Dioxide 21.3 Anion Gap 9 BUN 6 L Creatinine 0.82 Estimated GFR 86 L POC Glucose Random Glucose 78 Lactic Acid 2.7 H Calcium 7.4 L* Prot Corrected Calcium 8.1 L Phosphorus 3.0 D Magnesium 1.4 L Total Bilirubin 0.4 AST 39 H ALT 27 Alkaline Phosphatase 112 Total Protein 5.8 L Albumin 2.2 L Amylase 93 Lipase 745 H Tumor Marker AFP 10/04/17 10/04/17 10:20 12:31 WBC RBC Hgb Hct MCV MCH MCHC RDW Plt Count MPV Neut % (Auto) Lymph % (Auto) [place] % (Auto) Eos % (Auto) Baso % (Auto) Neut # (Auto) Lymph # (Auto) [place] # (Auto) Eos # (Auto) Baso # (Auto) WBC Differential Differential Comment PT INR APTT Sodium Potassium Chloride Carbon Dioxide Anion Gap BUN Creatinine Estimated GFR POC Glucose 102 265 H Random Glucose Lactic Acid Calcium Prot Corrected Calcium Phosphorus Magnesium Total Bilirubin AST ALT Alkaline Phosphatase Total Protein Albumin Amylase Lipase Tumor Marker AFP Microbiology 10/01/17 16:05 Blood - Peripheral Aerobic Blood Culture - Preliminary No growth in 3 days 10/01/17 16:05 Blood - Peripheral Anaerobic Blood Culture - Final QNS - See aerobic report. 10/01/17 16:00 Blood - Peripheral Aerobic Blood Culture - Preliminary No growth in 3 days 10/01/17 16:00 Blood - Peripheral Anaerobic Blood Culture - Preliminary No growth in 3 days - Imaging Impressions Cholangiopancreatography MRI 10/04/17 00:00 CONCLUSION: 1. Acute pancreatitis. 2. No intra or extrahepatic biliary duct dilatation 3. Hepatic steatosis. <Lidya Daily - Last Filed: 10/04/17 15:11> Assessment and Plan (1) Acute pancreatitis Status: Acute Code(s): K85.90 - Acute pancreatitis without necrosis or infection, unspecified (2) Fatty liver disease, nonalcoholic Status: Acute Code(s): K76.0 - Fatty (change of) liver, not elsewhere classified (3) Anemia Status: Acute Code(s): D64.9 - Anemia, unspecified - Plan Acute pancreatitis, First episode, possibly drug induced (Ozempic -2 weeks ago) she is not daily or heavy alcohol drinker TG normal Confirmed on CT scan with some mild patchy parenchymal necrosis. No ductal dilation seen Had negative MRCP, lipase trending down. Elevated AST, CT scan shows enlarged and infiltrated fatty liver and small ascites. liver workup pending DKA per CCM Plan Diabetic diet EGD on Friday IV hydration Pain meds per attending Monitor labs, IGG 4 hepatitis panel PPI Anti-emetics Further recommendations to follow Patient was seen per myself and Dr. Daily, this note was written on her behalf <Judy Rey - Last Filed: 10/04/17 12:54> (1) Acute pancreatitis Status: Acute Code(s): K85.90 - Acute pancreatitis without necrosis or infection, unspecified (2) Fatty liver disease, nonalcoholic Status: Acute Code(s): K76.0 - Fatty (change of) liver, not elsewhere classified (3) Anemia Status: Acute Code(s): D64.9 - Anemia, unspecified - Attending Attestation seen, examined agree with above <Lidya Daily - Last Filed: 10/04/17 15:11>
[2017-10-05] MEDS: Sod Chloride 0.9% Inj 1,000 ML IV.SIG SCH (03:18)
[2017-10-05] MEDS: Insulin NovoLIN Regular Correctional Sugar Inj SQ SCH ×3 (05:34→19:19)
[2017-10-05] MEDS: Chlorhexidine Gluconate 2% 1 Pack (2 Cloths) TOPICAL SCH (05:36)
--- NOTE | 2017-10-05 05:49 | XR ---
EXAM DATE: 10/05/2017 5:37 AM EDT AGE/SEX: 62 years / Female INDICATIONS: Shortness of breath. Evaluate for infiltrates or effusions. CLINICAL DATA: This is the patient's subsequent encounter. Patient reports that signs and symptoms h ave been present for 4 - 6 days and indicates a pain score of 0/10. MEDICAL/SURGICAL HISTORY: . Diabetes mellitus type II. Hypertension. Hysterectomy. COMPARISON: [facility] [place]ST 1V SINGLE AP, 10/01/2017. . FINDINGS: Portable AP view of the chest demonstrates a normal-sized cardiac silhouette. Hazy airspace opacity i s present in the lower lung zones bilaterally. Possible left pleural effusion is present. No pneumoth orax is identified. Bones demonstrate no acute finding. CONCLUSION: New bibasilar airspace opacity in a pattern which could represent pulmonary edema. There is a possibl e small left pleural effusion. Electronically signed by: Rl Lang MD 10/05/2017 5:48 AM EDT
[2017-10-05] MEDS: Escitalopram 10 MG Tablet PO SCH (09:18)
[2017-10-05] MEDS: Senna/Docusate Sodium 8.6/50 MG Tablet PO SCH ×2 (09:18→21:25)
[2017-10-05] MEDS: Metoprolol Tartrate 50 MG Tablet PO SCH ×2 (09:18→21:22)
[2017-10-05] MEDS: Heparin - SQ 10,000 UNITS/ML Vial SQ SCH ×2 (09:19→21:22)
[2017-10-05] MEDS: Insulin Detemir Inj 1,000 UNIT/10 ML Vial SQ SCH ×2 (09:19→21:24)
[2017-10-05] MEDS: Pantoprazole Inj 40 MG Vial IV.PUSH SCH (09:19)
[2017-10-05 09:23] LABS: Baso % (Auto) 0.5 % (0.0-2.0); Eos # (Auto) 0.1 th/mm3 (0.0-0.4); Eos % (Auto) 2.6 % (0.0-4.0); Hematocrit 29.9 % (35.0-46.0); Lymph # (Auto) 1.4 th/mm3 (1.0-4.8); Lymph % (Auto) 27.4 % (9.0-44.0); Mean Corpuscular HGB Conc 33.6 % (32.0-36.0); Mean Corpuscular Hemoglobin 31.2 pg (27.0-34.0); Mean Platelet Volume 9.1 fL (7.0-11.0); Mono # (Auto) 0.4 th/mm3 (0.0-0.9); Mono % (Auto) 7.3 % (0.0-8.0); Neut # (Auto) 3.2 th/mm3 (1.8-7.7); Neut % (Auto) 62.2 % (16.0-70.0); Platelet Count 132 th/mm3 (150-450); Red Blood Count 3.21 mil/mm3 (4.00-5.30); Red Cell Distribution Width 14.2 % (11.6-17.2); White Blood Count 5.2 th/mm3 (4.0-11.0)
[2017-10-05 10:02] LABS: Alanine Aminotransferase 24 U/L (10-53); Albumin 2.2 g/dL (3.4-5.0); Alkaline Phosphatase 120 U/L (45-117); Anion Gap 9 meq/L (5-15); Aspartate Aminotransferase 36 U/L (15-37); Blood Urea Nitrogen 6 mg/dL (7-18); Calcium 7.5 mg/dL (8.5-10.1); Carbon Dioxide 22.9 meq/L (21.0-32.0); Chloride 109 meq/L (98-107); Glomerular Filtration Rate 80 mL/min (>89); Glucose,Random 200 mg/dL (74-106); Lipase 392 U/L (73-393); Potassium 3.4 meq/L (3.5-5.1); Sodium 141 meq/L (136-145); Total Protein 5.5 g/dL (6.4-8.2)
[2017-10-05 10:22] LABS: Hepatitits B Surface Antigen Nonreactive (Nonreactive)
[2017-10-05] MEDS: Dextrose 5%/NaCl 0.9% Inj 1,000 ML IV.CONT SCH (10:35)
[2017-10-05 10:38] LABS: Hepatitis A IgM Antibody Nonreactive (Nonreactive)
--- NOTE | 2017-10-05 10:56 | P.PNIM ---
Subjective Interval history: Nursing denies any deterioration since last night. Patient denies any nausea vomiting diarrhea. Reports still having some mild abdominal pain. Thinks she is short of breath needs oxygen. Denies having abdominal distention. Denies having any lower extremity edema today. Physical Exam Vital signs: Vital Signs 10/04/17 12:00 10/04/17 13:02 10/04/17 16:00 Temperature 98.2 F 98.7 F Pulse Rate 100 H 100 H 95 H Respiratory Rate 24 27 H 20 Blood Pressure 167/83 H Pulse Oximetry 90 L 10/04/17 16:45 10/04/17 19:58 10/04/17 19:59 Temperature Pulse Rate 101 H 98 H Respiratory Rate 12 16 Blood Pressure Pulse Oximetry 97 95 10/04/17 20:00 10/04/17 23:59 10/05/17 00:00 Temperature 99.7 F H 98.4 F Pulse Rate 116 H 96 H 106 H Respiratory Rate 18 17 18 Blood Pressure 145/67 H 135/78 Pulse Oximetry 96 98 10/05/17 03:37 10/05/17 04:00 10/05/17 08:00 Temperature 98.4 F 98.7 F Pulse Rate 97 H 106 H 94 H Respiratory Rate 16 18 18 Blood Pressure 132/63 151/73 H Pulse Oximetry 100 98 10/05/17 08:12 Temperature Pulse Rate 97 H Respiratory Rate Blood Pressure Pulse Oximetry 96 Intake & Output 10/04/17 10/05/17 10/05/17 18:59 06:59 18:59 Intake Total 0 / 0 1626 / 1626 Balance 0 / 0 1626 / 1626 Weight 79.2 kg 79 kg Intake: IV 1386 / 1386 D5W/Normal Saline Inj 1,000 ML 1386 / 1386 @ 84 mls/hr IV.CONT .[id number] [facility] Rx#:[id number] Oral 240 / 240 Other 0 / 0 Other: # Voids 2 Date of Last Bowel Movement 10/04/17 Narrative: Clear lungs bilaterally, unlabored breathing, nasal cannula in place Abdomen soft, nontender tender, nondistended No lower extremity edema - Urinary Catheter Management Indwelling Urethral Catheter Cath placed during this visit: yes, but has since been removed by the nurse Reason for continuing: Decision to DC catheter Insertion date: 10/01/17 Insertion time: 16:07 Removal date: 10/04/17 Removal time: 08:30 Results - Labs CBC & Chem 7: 10/06/17 04:13 10/06/17 04:13 Laboratory Results - last 24 hr 10/04/17 10/04/17 10/04/17 12:31 16:05 23:46 WBC RBC Hgb Hct MCV MCH MCHC RDW Plt Count MPV Neut % (Auto) Lymph % (Auto) [place] % (Auto) Eos % (Auto) Baso % (Auto) Neut # (Auto) Lymph # (Auto) [place] # (Auto) Eos # (Auto) Baso # (Auto) WBC Differential Differential Comment Sodium Potassium Chloride Carbon Dioxide Anion Gap BUN Creatinine Estimated GFR POC Glucose 265 H 113 H 294 H Random Glucose Calcium Total Bilirubin AST ALT Alkaline Phosphatase Total Protein Albumin Lipase Hepatitis A IgM Ab Hep Bs Antigen Hep B Core IgM Ab Hep C IgG Ab 10/05/17 10/05/17 10/05/17 05:33 07:47 07:47 WBC 5.2 RBC 3.21 L Hgb 10.0 L Hct 29.9 L MCV 93.0 MCH 31.2 MCHC 33.6 RDW 14.2 Plt Count 132 L MPV 9.1 Neut % (Auto) 62.2 Lymph % (Auto) 27.4 [place] % (Auto) 7.3 Eos % (Auto) 2.6 Baso % (Auto) 0.5 Neut # (Auto) 3.2 Lymph # (Auto) 1.4 [place] # (Auto) 0.4 Eos # (Auto) 0.1 Baso # (Auto) 0.0 WBC Differential . Differential Comment Auto diff final Sodium 141 Potassium 3.4 L Chloride 109 H Carbon Dioxide 22.9 Anion Gap 9 BUN 6 L Creatinine 0.87 Estimated GFR 80 L POC Glucose 144 H Random Glucose 200 H D Calcium 7.5 L Total Bilirubin 0.5 AST 36 ALT 24 Alkaline Phosphatase 120 H Total Protein 5.5 L Albumin 2.2 L Lipase 392 Hepatitis A IgM Ab Hep Bs Antigen Hep B Core IgM Ab Hep C IgG Ab 10/05/17 07:47 WBC RBC Hgb Hct MCV MCH MCHC RDW Plt Count MPV Neut % (Auto) Lymph % (Auto) [place] % (Auto) Eos % (Auto) Baso % (Auto) Neut # (Auto) Lymph # (Auto) [place] # (Auto) Eos # (Auto) Baso # (Auto) WBC Differential Differential Comment Sodium Potassium Chloride Carbon Dioxide Anion Gap BUN Creatinine Estimated GFR POC Glucose Random Glucose Calcium Total Bilirubin AST ALT Alkaline Phosphatase Total Protein Albumin Lipase Hepatitis A IgM Ab Nonreactive Hep Bs Antigen Nonreactive Hep B Core IgM Ab Nonreactive Hep C IgG Ab Nonreactive Microbiology 10/01/17 16:05 Blood - Peripheral Aerobic Blood Culture - Preliminary No growth in 3 days 10/01/17 16:05 Blood - Peripheral Anaerobic Blood Culture - Final QNS - See aerobic report. 10/01/17 16:00 Blood - Peripheral Aerobic Blood Culture - Preliminary No growth in 3 days 10/01/17 16:00 Blood - Peripheral Anaerobic Blood Culture - Preliminary No growth in 3 days - Imaging Impressions Chest X-Ray 10/05/17 05:00 CONCLUSION: New bibasilar airspace opacity in a pattern which could represent pulmonary edema. There is a possible small left pleural effusion. Assessment and Plan - Plan 62-year-old black female Patient was admitted to [facility] [place]. Started aggressively on IV fluids and DKA protocol. Eventually her encephalopathy, lactic acidosis, ketoacidosis had resolved and was transitioned to the regular floor. Acute toxic metabolic encephalopathy Hyperosmolar state -Resolved Diabetic ketoacidosis Lactic acidosis - resolved acute hypoxia - requiring 4 L, will recheck pulse ox, independently reviewed chest x-ray from this morning which shows very mild pulmonary edema with no obvious focal infiltrate suggestive of any pneumonia -Ordering 2D echo -Stopping IV fluids, 1x lasix IV Acute Pancreatitis - clinically improved, no obvious cause found - Stopping IV fluids, tolerating p.o. intake - MRCP negative, GI following, plans for EGD tomorrow Acute kidney injury - improved w/ IVFs HTN -Continue home lisinopril, metoprolol, HCTZ, amlodipine .
--- NOTE | 2017-10-05 15:25 | P.PNGI ---
Subjective Interval history: Pt is resting in bed doing better today, still with abd pain, no nausea or vomiting <Jduy Rey - Last Filed: 10/05/17 15:18> Physical Exam Vital signs: Vital Signs 10/04/17 16:00 10/04/17 16:45 10/04/17 19:58 Temperature 98.7 F Pulse Rate 95 H 101 H Respiratory Rate 20 12 Blood Pressure 167/83 H Pulse Oximetry 90 L 97 95 10/04/17 19:59 10/04/17 20:00 10/04/17 23:59 Temperature 99.7 F H Pulse Rate 98 H 116 H 96 H Respiratory Rate 16 18 17 Blood Pressure 145/67 H Pulse Oximetry 96 10/05/17 00:00 10/05/17 03:37 10/05/17 04:00 Temperature 98.4 F 98.4 F Pulse Rate 106 H 97 H 106 H Respiratory Rate 18 16 18 Blood Pressure 135/78 132/63 Pulse Oximetry 98 100 10/05/17 08:00 10/05/17 08:12 10/05/17 11:26 Temperature 98.7 F Pulse Rate 94 H 97 H 101 H Respiratory Rate 18 12 Blood Pressure 151/73 H Pulse Oximetry 98 96 10/05/17 12:00 Temperature 97.9 F Pulse Rate 105 H Respiratory Rate 18 Blood Pressure 157/79 H Pulse Oximetry 96 Intake & Output 10/04/17 10/05/17 10/05/17 18:59 06:59 18:59 Intake Total 0 / 0 1626 / 1626 Balance 0 / 0 1626 / 1626 Weight 79.2 kg 79 kg Intake: IV 1386 / 1386 D5W/Normal Saline Inj 1,000 ML 1386 / 1386 @ 84 mls/hr IV.CONT .[id number] [facility] Rx#:[id number] Oral 240 / 240 Other 0 / 0 Other: # Voids 2 Date of Last Bowel Movement 10/04/17 10/04/17 - Constitutional no acute distress - Routine HEENT Exam Head: Present: normocephalic - Routine Respiratory Exam Present: CTA bilaterally - Routine Cardiovascular Exam Present: RRR - Routine Abdominal Exam Present: soft, normoactive bowel sounds, tenderness - Routine Skin Exam Present: intact, dry - Routine Neurological Exam Present: alert, oriented X3 - Urinary Catheter Management Indwelling Urethral Catheter Cath placed during this visit: yes, but has since been removed by the nurse Reason for continuing: Decision to DC catheter Insertion date: 10/01/17 Insertion time: 16:07 Removal date: 10/04/17 Removal time: 08:30 <DannyjemmaAidensoha - Last Filed: 10/05/17 15:18> Vital signs: Vital Signs 10/04/17 19:58 10/04/17 19:59 10/04/17 20:00 Temperature 99.7 F H Pulse Rate 98 H 116 H Respiratory Rate 16 18 Blood Pressure 145/67 H Pulse Oximetry 95 96 10/04/17 23:59 10/05/17 00:00 10/05/17 03:37 Temperature 98.4 F Pulse Rate 96 H 106 H 97 H Respiratory Rate 17 18 16 Blood Pressure 135/78 Pulse Oximetry 98 10/05/17 04:00 10/05/17 08:00 10/05/17 08:12 Temperature 98.4 F 98.7 F Pulse Rate 106 H 101 H 97 H Respiratory Rate 18 18 Blood Pressure 132/63 151/73 H Pulse Oximetry 100 98 96 10/05/17 11:26 10/05/17 12:00 10/05/17 15:54 Temperature 97.9 F Pulse Rate 101 H 99 H 108 H Respiratory Rate 12 18 12 Blood Pressure 157/79 H Pulse Oximetry 96 10/05/17 16:00 Temperature Pulse Rate 95 H Respiratory Rate Blood Pressure Pulse Oximetry Intake & Output 10/04/17 10/05/17 10/05/17 18:59 06:59 18:59 Intake Total 0 / 0 1626 / 1626 Balance 0 / 0 1626 / 1626 Weight 79.2 kg 79 kg Intake: IV 1386 / 1386 D5W/Normal Saline Inj 1,000 ML 1386 / 1386 @ 84 mls/hr IV.CONT .[id number] [facility] Rx#:[id number] Oral 240 / 240 Other 0 / 0 Other: # Voids 2 Date of Last Bowel Movement 10/04/17 10/04/17 - Urinary Catheter Management Indwelling Urethral Catheter Cath placed during this visit: no <Lidya Daily - Last Filed: 10/05/17 17:17> Results - Labs CBC & Chem 7: 10/05/17 07:47 10/05/17 07:47 Laboratory Results - last 24 hr 10/04/17 10/04/17 10/05/17 16:05 23:46 05:33 WBC RBC Hgb Hct MCV MCH MCHC RDW Plt Count MPV Neut % (Auto) Lymph % (Auto) [place] % (Auto) Eos % (Auto) Baso % (Auto) Neut # (Auto) Lymph # (Auto) [place] # (Auto) Eos # (Auto) Baso # (Auto) WBC Differential Differential Comment Sodium Potassium Chloride Carbon Dioxide Anion Gap BUN Creatinine Estimated GFR POC Glucose 113 H 294 H 144 H Random Glucose Calcium Total Bilirubin AST ALT Alkaline Phosphatase Total Protein Albumin Lipase Hepatitis A IgM Ab Hep Bs Antigen Hep B Core IgM Ab Hep C IgG Ab 10/05/17 10/05/17 10/05/17 07:47 07:47 07:47 WBC 5.2 RBC 3.21 L Hgb 10.0 L Hct 29.9 L MCV 93.0 MCH 31.2 MCHC 33.6 RDW 14.2 Plt Count 132 L MPV 9.1 Neut % (Auto) 62.2 Lymph % (Auto) 27.4 [place] % (Auto) 7.3 Eos % (Auto) 2.6 Baso % (Auto) 0.5 Neut # (Auto) 3.2 Lymph # (Auto) 1.4 [place] # (Auto) 0.4 Eos # (Auto) 0.1 Baso # (Auto) 0.0 WBC Differential . Differential Comment Auto diff final Sodium 141 Potassium 3.4 L Chloride 109 H Carbon Dioxide 22.9 Anion Gap 9 BUN 6 L Creatinine 0.87 Estimated GFR 80 L POC Glucose Random Glucose 200 H D Calcium 7.5 L Total Bilirubin 0.5 AST 36 ALT 24 Alkaline Phosphatase 120 H Total Protein 5.5 L Albumin 2.2 L Lipase 392 Hepatitis A IgM Ab Nonreactive Hep Bs Antigen Nonreactive Hep B Core IgM Ab Nonreactive Hep C IgG Ab Nonreactive 10/05/17 11:52 WBC RBC Hgb Hct MCV MCH MCHC RDW Plt Count MPV Neut % (Auto) Lymph % (Auto) [place] % (Auto) Eos % (Auto) Baso % (Auto) Neut # (Auto) Lymph # (Auto) [place] # (Auto) Eos # (Auto) Baso # (Auto) WBC Differential Differential Comment Sodium Potassium Chloride Carbon Dioxide Anion Gap BUN Creatinine Estimated GFR POC Glucose 323 H Random Glucose Calcium Total Bilirubin AST ALT Alkaline Phosphatase Total Protein Albumin Lipase Hepatitis A IgM Ab Hep Bs Antigen Hep B Core IgM Ab Hep C IgG Ab Microbiology 10/01/17 16:05 Blood - Peripheral Aerobic Blood Culture - Preliminary No growth in 4 days 10/01/17 16:05 Blood - Peripheral Anaerobic Blood Culture - Final QNS - See aerobic report. 10/01/17 16:00 Blood - Peripheral Aerobic Blood Culture - Preliminary No growth in 4 days 10/01/17 16:00 Blood - Peripheral Anaerobic Blood Culture - Preliminary No growth in 4 days - Imaging Impressions Chest X-Ray 10/05/17 05:00 CONCLUSION: New bibasilar airspace opacity in a pattern which could represent pulmonary edema. There is a possible small left pleural effusion. <Judy Rey - Last Filed: 10/05/17 15:18> - Labs CBC & Chem 7: 10/05/17 07:47 10/05/17 07:47 Laboratory Results - last 24 hr 10/04/17 10/05/17 10/05/17 23:46 05:33 07:47 WBC 5.2 RBC 3.21 L Hgb 10.0 L Hct 29.9 L MCV 93.0 MCH 31.2 MCHC 33.6 RDW 14.2 Plt Count 132 L MPV 9.1 Neut % (Auto) 62.2 Lymph % (Auto) 27.4 [place] % (Auto) 7.3 Eos % (Auto) 2.6 Baso % (Auto) 0.5 Neut # (Auto) 3.2 Lymph # (Auto) 1.4 [place] # (Auto) 0.4 Eos # (Auto) 0.1 Baso # (Auto) 0.0 WBC Differential . Differential Comment Auto diff final Sodium Potassium Chloride Carbon Dioxide Anion Gap BUN Creatinine Estimated GFR POC Glucose 294 H 144 H Random Glucose Calcium Total Bilirubin AST ALT Alkaline Phosphatase B-Natriuretic Peptide Total Protein Albumin Lipase Hepatitis A IgM Ab Hep Bs Antigen Hep B Core IgM Ab Hep C IgG Ab 10/05/17 10/05/17 10/05/17 07:47 07:47 07:47 WBC RBC Hgb Hct MCV MCH MCHC RDW Plt Count MPV Neut % (Auto) Lymph % (Auto) [place] % (Auto) Eos % (Auto) Baso % (Auto) Neut # (Auto) Lymph # (Auto) [place] # (Auto) Eos # (Auto) Baso # (Auto) WBC Differential Differential Comment Sodium 141 Potassium 3.4 L Chloride 109 H Carbon Dioxide 22.9 Anion Gap 9 BUN 6 L Creatinine 0.87 Estimated GFR 80 L POC Glucose Random Glucose 200 H D Calcium 7.5 L Total Bilirubin 0.5 AST 36 ALT 24 Alkaline Phosphatase 120 H B-Natriuretic Peptide 135 H Total Protein 5.5 L Albumin 2.2 L Lipase 392 Hepatitis A IgM Ab Nonreactive Hep Bs Antigen Nonreactive Hep B Core IgM Ab Nonreactive Hep C IgG Ab Nonreactive 10/05/17 11:52 WBC RBC Hgb Hct MCV MCH MCHC RDW Plt Count MPV Neut % (Auto) Lymph % (Auto) [place] % (Auto) Eos % (Auto) Baso % (Auto) Neut # (Auto) Lymph # (Auto) [place] # (Auto) Eos # (Auto) Baso # (Auto) WBC Differential Differential Comment Sodium Potassium Chloride Carbon Dioxide Anion Gap BUN Creatinine Estimated GFR POC Glucose 323 H Random Glucose Calcium Total Bilirubin AST ALT Alkaline Phosphatase B-Natriuretic Peptide Total Protein Albumin Lipase Hepatitis A IgM Ab Hep Bs Antigen Hep B Core IgM Ab Hep C IgG Ab Microbiology 10/01/17 16:05 Blood - Peripheral Aerobic Blood Culture - Preliminary No growth in 4 days 10/01/17 16:05 Blood - Peripheral Anaerobic Blood Culture - Final QNS - See aerobic report. 10/01/17 16:00 Blood - Peripheral Aerobic Blood Culture - Preliminary No growth in 4 days 10/01/17 16:00 Blood - Peripheral Anaerobic Blood Culture - Preliminary No growth in 4 days - Imaging Impressions Chest X-Ray 10/05/17 05:00 CONCLUSION: New bibasilar airspace opacity in a pattern which could represent pulmonary edema. There is a possible small left pleural effusion. <Lidya Daily - Last Filed: 10/05/17 17:17> Assessment and Plan (1) Acute pancreatitis Status: Acute Code(s): K85.90 - Acute pancreatitis without necrosis or infection, unspecified (2) Fatty liver disease, nonalcoholic Status: Acute Code(s): K76.0 - Fatty (change of) liver, not elsewhere classified (3) Anemia Status: Acute Code(s): D64.9 - Anemia, unspecified - Plan Acute pancreatitis, First episode, possibly drug induced (Ozempic -2 weeks ago) she is not daily or heavy alcohol drinker TG normal Confirmed on CT scan with some mild patchy parenchymal necrosis. No ductal dilation seen Had negative MRCP, lipase normal today Elevated LFTs, Normal AST/ALT today, slight elevation in ALP CT scan shows enlarged and infiltrated fatty liver and small ascites. liver workup pending Hepatitis panel negative DKA per CCM Plan Diabetic diet EGD on Friday IV hydration Pain meds per attending Monitor labs, IGG 4 pending Await liver workup PPI Anti-emetics Further recommendations to follow Patient was seen per myself and Dr. Daily, this note was written on her behalf <Judy Rey - Last Filed: 10/05/17 15:18> (1) Acute pancreatitis Status: Acute Code(s): K85.90 - Acute pancreatitis without necrosis or infection, unspecified (2) Fatty liver disease, nonalcoholic Status: Acute Code(s): K76.0 - Fatty (change of) liver, not elsewhere classified (3) Anemia Status: Acute Code(s): D64.9 - Anemia, unspecified - Attending Attestation seen, examined agree with above <Lidya Daily - Last Filed: 10/05/17 17:17>
[2017-10-05] MEDS: Gabapentin 300 MG Capsule PO SCH (21:22)
--- NOTE | 2017-10-06 06:09 | CT ---
EXAM DATE: 10/06/2017 6:00 AM EDT AGE/SEX: 62 years / Female INDICATIONS: Elevated d-dimer; rule out pulmonary embolus. CLINICAL DATA: This is the patient's initial encounter. Patient reports that signs and symptoms have been present for 1 day and indicates a pain score of 0/10. MEDICAL/SURGICAL HISTORY: Diabetes. Hypertension. None. RADIATION DOSE: 12.72 CTDI (mGy) COMPARISON: [facility], CTA PULMONARY ANGIOGRAM, 09/22/2017. [facility], CHEST 1V SINGLE AP, 10/05/2017. . TECHNIQUE: Volumetric scanning was performed using a multi-row detector CT scanner during bolus infu maggi of 75 ml Omnipaque 350 (iohexol) nonionic water-soluble contrast as a single exam dose. The maria alejandra a was post processed with a variety of visualization algorithms including full volume maximum intensi ty projection and sliding thin slab reformation. Using automated exposure control and adjustment of t he mA and/or kV according to patient size, radiation dose was kept as low as reasonably achievable to obtain optimal diagnostic quality images. DICOM format image data is available electronically for r eview and comparison. FINDINGS: Pulmonary Arteries: No filling defects are seen in the pulmonary arteries out to the subsegmental ve ssels. The left and right pulmonary arteries are normal in diameter. Lung: Bilateral airspace disease greater lower lobes. Effusion: Small bilateral pleural effusions. Mediastinum: No evidence of mediastinal or hilar adenopathy. Heart enlarged. Other: The axilla is unremarkable. CONCLUSION: 1. Cardiomegaly with bilateral airspace disease and pleural effusions likely CHF. 2. No evidence for pulmonary embolism. Electronically signed by: Mike Chatterjee MD 10/06/2017 6:08 AM EDT
[2017-10-06] MEDS: Insulin NovoLIN Regular Correctional Sugar Inj SQ SCH ×4 (06:13→18:29)
[2017-10-06] MEDS: Chlorhexidine Gluconate 2% 1 Pack (2 Cloths) TOPICAL SCH (06:14)
[2017-10-06 06:52] LABS: Baso % (Auto) 0.5 % (0.0-2.0); Eos # (Auto) 0.2 th/mm3 (0.0-0.4); Eos % (Auto) 4.1 % (0.0-4.0); Hematocrit 29.8 % (35.0-46.0); Hemoglobin 10.3 gm/dL (11.6-15.3); Lymph # (Auto) 1.6 th/mm3 (1.0-4.8); Lymph % (Auto) 33.6 % (9.0-44.0); Mean Corpuscular HGB Conc 34.4 % (32.0-36.0); Mean Corpuscular Hemoglobin 31.2 pg (27.0-34.0); Mean Corpuscular Volume 90.7 fL (80.0-100.0); Mean Platelet Volume 9.2 fL (7.0-11.0); Mono # (Auto) 0.4 th/mm3 (0.0-0.9); Mono % (Auto) 9.4 % (0.0-8.0); Neut # (Auto) 2.5 th/mm3 (1.8-7.7); Neut % (Auto) 52.4 % (16.0-70.0); Platelet Count 134 th/mm3 (150-450); Red Blood Count 3.29 mil/mm3 (4.00-5.30); Red Cell Distribution Width 13.6 % (11.6-17.2); White Blood Count 4.7 th/mm3 (4.0-11.0)
[2017-10-06 07:11] LABS: Alanine Aminotransferase 23 U/L (10-53); Albumin 2.3 g/dL (3.4-5.0); Alkaline Phosphatase 121 U/L (45-117); Anion Gap 8 meq/L (5-15); Aspartate Aminotransferase 24 U/L (15-37); Blood Urea Nitrogen 6 mg/dL (7-18); Calcium 7.9 mg/dL (8.5-10.1); Carbon Dioxide 27.9 meq/L (21.0-32.0); Chloride 107 meq/L (98-107); Glomerular Filtration Rate 86 mL/min (>89); Glucose,Random 81 mg/dL (74-106); Potassium 3.1 meq/L (3.5-5.1); Sodium 143 meq/L (136-145); Total Protein 5.7 g/dL (6.4-8.2)
[2017-10-06] MEDS: Escitalopram 10 MG Tablet PO SCH (08:41)
[2017-10-06] MEDS: Metoprolol Tartrate 50 MG Tablet PO SCH ×2 (08:41→21:16)
[2017-10-06] MEDS: Gabapentin 300 MG Capsule PO SCH ×2 (08:42→22:37)
[2017-10-06] MEDS: Pantoprazole Inj 40 MG Vial IV.PUSH SCH (08:42)
[2017-10-06] MEDS: Senna/Docusate Sodium 8.6/50 MG Tablet PO SCH ×2 (08:42→21:16)
[2017-10-06] MEDS: Insulin Detemir Inj 1,000 UNIT/10 ML Vial SQ SCH ×2 (08:43→21:16)
[2017-10-06] MEDS ORDERED: Metoprolol Tartrate 25 MG Tablet PO SCH (09:15)
[2017-10-06] MEDS ORDERED: Chlorhexidine Gluconate 2% 1 Pack (2 Cloths) TOPICAL SCH (09:15)
[2017-10-06] MEDS ORDERED: Sodium Chlor 0.9% Inj 500 ML IV.SIG SCH (10:00)
--- NOTE | 2017-10-06 10:30 | GIPROC ---
[facility] [address] [facility]. [facility], [address] EGD PROCEDURE REPORT EXAM DATE: 10/06/2017 PATIENT NAME: Tara Rivera MR #: [id number] BIRTHDATE: 1955 ATTENDING: Judy Tamez MD ORDER #: [id number] MONOGRAM MACHINE OPERATOR: Amada Shepherd and Jaimie Gabriel STATUS: inpatient INDICATIONS: The patient is a 62 yr old female here for an EGD due to anemia and epigastric abdominal pain PROCEDURE PERFORMED: EGD w/ biopsy MEDICATIONS: None and Per Anesthesia. TOPICAL ANESTHETIC: CONSENT: The patient understands the risks and benefits of the procedure and understands that these risks include, but are not limited to: sedation, allergic reaction, infection, perforation and/or bleeding. Alternative means of evaluation and treatment include, among others: physical exam, x-rays, and/or surgical intervention. The patient elects to proceed with this endoscopic procedure. medical equipment was checked for proper function. Hand hygiene and appropriate measures for infection prevention was taken. After the risks, benefits and alternatives of the procedure were thoroughly explained, Informed consent was verified, confirmed and timeout was successfully executed by the treatment team. The patient was anesthetized with topical anesthesia and the Pentax EG-[id number] endoscope was introduced through the mouth and advanced to the second portion of the duodenum. Retroflexed views revealed no abnormalities The gastroscope was then slowly withdrawn and removed. Mild gastritis biopsy was done from the antrum otherwise normal exam. ADVERSE EVENTS: There were no complications. IMPRESSIONS: 1. Mild gastritis biopsy was done from the antrum otherwise normal exam 2. Retroflexed views revealed no abnormalities RECOMMENDATIONS: 1. Await biopsy results. Biopsy results will not be ready for 7-10 days. If you don't hear from us in two weeks, call our office for biopsy results. 2. Avoid NSAIDS 3. Continue PPI PATIENT CONDITION: stable DISPOSITION: Inpatient REPEAT EXAM: Colonoscopy as an outpatient NO Judy Tamez MD eSigned: Judy Tamez MD 10/06/2017 10:30 AM cc:
[2017-10-06] MEDS ORDERED: Lidocaine PF 1% Inj 5 ML Syringe INFILTRATN ONE (12:00)
--- NOTE | 2017-10-06 18:22 | P.PNIM ---
Subjective Interval history: Nursing denies any deterioration since last night. Patient thinks that her shortness of breath is close to her baseline at home. She does report feeling weak and she thinks it might have been from the anesthesia from her EGD procedure today. Physical Exam Vital signs: Vital Signs 10/05/17 20:00 10/06/17 00:00 10/06/17 04:00 Temperature 98.1 F 98.4 F 97.2 F L Pulse Rate 97 H 92 H 94 H Respiratory Rate 18 18 18 Blood Pressure 146/80 H 152/85 H 154/82 H Pulse Oximetry 100 100 98 10/06/17 08:00 10/06/17 10:32 10/06/17 12:00 Temperature 97.8 F 98.5 F 98.3 F Pulse Rate 128 H 82 67 Respiratory Rate 18 18 18 Blood Pressure 150/87 H 139/70 165/80 H Pulse Oximetry 100 100 100 10/06/17 16:00 Temperature 98.1 F Pulse Rate 93 H Respiratory Rate 18 Blood Pressure 159/77 H Pulse Oximetry 98 Intake & Output 10/05/17 10/06/17 10/06/17 18:59 06:59 18:59 Intake Total 720 / 720 323 / 323 540 / 540 Balance 720 / 720 323 / 323 540 / 540 Weight 78 kg Intake: IV 323 / 323 D5W/Normal Saline Inj 1,000 ML 323 / 323 @ 84 mls/hr IV.CONT .[id number] [facility] Rx#:[id number] NS Inj 1,000 ML @ 125 mls/hr IV 0 / 0 .SIG .Q8H [facility] Rx#:[id number] Oral 720 / 720 0 / 0 240 / 240 Anesthesia Amount 300 / 300 Other: # Voids 8 2 4 Date of Last Bowel Movement 10/04/17 10/04/17 # Bowel Movements 1 0 Narrative: Diminished breath sounds in the bases, on nasal cannula, unlabored breathing Abdomen soft, nontender, nondistended No lower extremity edema - Urinary Catheter Management Indwelling Urethral Catheter Cath placed during this visit: yes, but has since been removed by the nurse Reason for continuing: Decision to DC catheter Insertion date: 10/01/17 Insertion time: 16:07 Removal date: 10/04/17 Removal time: 08:30 Results - Labs CBC & Chem 7: 10/06/17 04:13 10/06/17 04:13 Laboratory Results - last 24 hr 10/05/17 10/05/17 10/06/17 19:50 23:46 04:13 WBC 4.7 RBC 3.29 L Hgb 10.3 L Hct 29.8 L MCV 90.7 MCH 31.2 MCHC 34.4 RDW 13.6 Plt Count 134 L MPV 9.2 Neut % (Auto) 52.4 Lymph % (Auto) 33.6 [place] % (Auto) 9.4 H Eos % (Auto) 4.1 H Baso % (Auto) 0.5 Neut # (Auto) 2.5 Lymph # (Auto) 1.6 [place] # (Auto) 0.4 Eos # (Auto) 0.2 Baso # (Auto) 0.0 WBC Differential . Differential Comment Auto diff final D-Dimer Quant (PE/DVT) 6.73 H Sodium Potassium Chloride Carbon Dioxide Anion Gap BUN Creatinine Estimated GFR POC Glucose 169 H Random Glucose Calcium Magnesium Total Bilirubin AST ALT Alkaline Phosphatase Total Protein Albumin 10/06/17 10/06/17 10/06/17 04:13 06:12 11:54 WBC RBC Hgb Hct MCV MCH MCHC RDW Plt Count MPV Neut % (Auto) Lymph % (Auto) [place] % (Auto) Eos % (Auto) Baso % (Auto) Neut # (Auto) Lymph # (Auto) [place] # (Auto) Eos # (Auto) Baso # (Auto) WBC Differential Differential Comment D-Dimer Quant (PE/DVT) Sodium 143 Potassium 3.1 L Chloride 107 Carbon Dioxide 27.9 Anion Gap 8 BUN 6 L Creatinine 0.82 Estimated GFR 86 L POC Glucose 86 181 H Random Glucose 81 D Calcium 7.9 L Magnesium Total Bilirubin 0.3 AST 24 ALT 23 Alkaline Phosphatase 121 H Total Protein 5.7 L Albumin 2.3 L 10/06/17 10/06/17 12:59 17:35 WBC RBC Hgb Hct MCV MCH MCHC RDW Plt Count MPV Neut % (Auto) Lymph % (Auto) [place] % (Auto) Eos % (Auto) Baso % (Auto) Neut # (Auto) Lymph # (Auto) [place] # (Auto) Eos # (Auto) Baso # (Auto) WBC Differential Differential Comment D-Dimer Quant (PE/DVT) Sodium Potassium Chloride Carbon Dioxide Anion Gap BUN Creatinine Estimated GFR POC Glucose 330 H Random Glucose Calcium Magnesium 1.5 Total Bilirubin AST ALT Alkaline Phosphatase Total Protein Albumin Microbiology 10/01/17 16:05 Blood - Peripheral Aerobic Blood Culture - Final No growth in 5 days 10/01/17 16:05 Blood - Peripheral Anaerobic Blood Culture - Final QNS - See aerobic report. 10/01/17 16:00 Blood - Peripheral Aerobic Blood Culture - Final No growth in 5 days 10/01/17 16:00 Blood - Peripheral Anaerobic Blood Culture - Final No growth in 5 days - Imaging Impressions Chest CTA 10/06/17 00:00 CONCLUSION: 1. Cardiomegaly with bilateral airspace disease and pleural effusions likely CHF. 2. No evidence for pulmonary embolism. Assessment and Plan - Plan 62-year-old black female Patient was admitted to [facility]. Started aggressively on IV fluids and DKA protocol. Eventually her encephalopathy, lactic acidosis, ketoacidosis had resolved and was transitioned to the regular floor. acute hypoxia -Secondary to pulmonary edema, suspect heart failure, awaiting echocardiogram results, continue twice daily IV Lasix Acute Pancreatitis - clinically improved, no obvious cause found abd pain - mild gastritis on EGD, pt counseled on avoiding NSAIDs HTN -Continue home lisinopril, metoprolol, HCTZ, amlodipine .
--- NOTE | 2017-10-06 20:27 | P.PNGI ---
Subjective Interval history: Patient laying in bed comfortably, mild abdominal discomfort, had an upper endoscopy today Physical Exam Vital signs: Vital Signs 10/06/17 00:00 10/06/17 04:00 10/06/17 08:00 Temperature 98.4 F 97.2 F L 97.8 F Pulse Rate 92 H 94 H 128 H Respiratory Rate 18 18 18 Blood Pressure 152/85 H 154/82 H 150/87 H Pulse Oximetry 100 98 100 10/06/17 10:32 10/06/17 12:00 10/06/17 15:53 Temperature 98.5 F 98.3 F Pulse Rate 82 67 96 H Respiratory Rate 18 18 Blood Pressure 139/70 165/80 H Pulse Oximetry 100 100 10/06/17 16:00 Temperature 98.1 F Pulse Rate 93 H Respiratory Rate 18 Blood Pressure 159/77 H Pulse Oximetry 98 Intake & Output 10/06/17 10/06/17 10/07/17 06:59 18:59 06:59 Intake Total 323 / 323 540 / 540 Balance 323 / 323 540 / 540 Weight 78 kg Intake: IV 323 / 323 D5W/Normal Saline Inj 1,000 ML 323 / 323 @ 84 mls/hr IV.CONT .[id number] [facility] Rx#:[id number] NS Inj 1,000 ML @ 125 mls/hr IV 0 / 0 .SIG .Q8H [facility] Rx#:[id number] Oral 0 / 0 240 / 240 Anesthesia Amount 300 / 300 Other: # Voids 2 4 Date of Last Bowel Movement 10/04/17 # Bowel Movements 0 - Constitutional no acute distress - Routine HEENT Exam Head: Present: normocephalic, atraumatic Eye: Present: EOMI, PERRL ENT: Present: mucous membranes moist - Routine Neck Exam Present: supple, full ROM - Routine Respiratory Exam Present: decreased breath sounds, CTA bilaterally - Routine Cardiovascular Exam Present: RRR, S1, S2 - Routine Abdominal Exam Present: soft, normoactive bowel sounds - Urinary Catheter Management Indwelling Urethral Catheter Cath placed during this visit: yes, but has since been removed by the nurse Reason for continuing: Decision to DC catheter Insertion date: 10/01/17 Insertion time: 16:07 Removal date: 10/04/17 Removal time: 08:30 Results - Labs CBC & Chem 7: 10/06/17 04:13 10/06/17 04:13 Laboratory Results - last 24 hr 10/05/17 10/05/17 10/06/17 19:50 23:46 04:13 WBC 4.7 RBC 3.29 L Hgb 10.3 L Hct 29.8 L MCV 90.7 MCH 31.2 MCHC 34.4 RDW 13.6 Plt Count 134 L MPV 9.2 Neut % (Auto) 52.4 Lymph % (Auto) 33.6 [place] % (Auto) 9.4 H Eos % (Auto) 4.1 H Baso % (Auto) 0.5 Neut # (Auto) 2.5 Lymph # (Auto) 1.6 [place] # (Auto) 0.4 Eos # (Auto) 0.2 Baso # (Auto) 0.0 WBC Differential . Differential Comment Auto diff final D-Dimer Quant (PE/DVT) 6.73 H Sodium Potassium Chloride Carbon Dioxide Anion Gap BUN Creatinine Estimated GFR POC Glucose 169 H Random Glucose Calcium Magnesium Total Bilirubin AST ALT Alkaline Phosphatase Total Protein Albumin 10/06/17 10/06/17 10/06/17 04:13 06:12 11:54 WBC RBC Hgb Hct MCV MCH MCHC RDW Plt Count MPV Neut % (Auto) Lymph % (Auto) [place] % (Auto) Eos % (Auto) Baso % (Auto) Neut # (Auto) Lymph # (Auto) [place] # (Auto) Eos # (Auto) Baso # (Auto) WBC Differential Differential Comment D-Dimer Quant (PE/DVT) Sodium 143 Potassium 3.1 L Chloride 107 Carbon Dioxide 27.9 Anion Gap 8 BUN 6 L Creatinine 0.82 Estimated GFR 86 L POC Glucose 86 181 H Random Glucose 81 D Calcium 7.9 L Magnesium Total Bilirubin 0.3 AST 24 ALT 23 Alkaline Phosphatase 121 H Total Protein 5.7 L Albumin 2.3 L 10/06/17 10/06/17 12:59 17:35 WBC RBC Hgb Hct MCV MCH MCHC RDW Plt Count MPV Neut % (Auto) Lymph % (Auto) [place] % (Auto) Eos % (Auto) Baso % (Auto) Neut # (Auto) Lymph # (Auto) [place] # (Auto) Eos # (Auto) Baso # (Auto) WBC Differential Differential Comment D-Dimer Quant (PE/DVT) Sodium Potassium Chloride Carbon Dioxide Anion Gap BUN Creatinine Estimated GFR POC Glucose 330 H Random Glucose Calcium Magnesium 1.5 Total Bilirubin AST ALT Alkaline Phosphatase Total Protein Albumin Microbiology 10/01/17 16:05 Blood - Peripheral Aerobic Blood Culture - Final No growth in 5 days 10/01/17 16:05 Blood - Peripheral Anaerobic Blood Culture - Final QNS - See aerobic report. 10/01/17 16:00 Blood - Peripheral Aerobic Blood Culture - Final No growth in 5 days 10/01/17 16:00 Blood - Peripheral Anaerobic Blood Culture - Final No growth in 5 days - Imaging Impressions Chest CTA 10/06/17 00:00 CONCLUSION: 1. Cardiomegaly with bilateral airspace disease and pleural effusions likely CHF. 2. No evidence for pulmonary embolism. Assessment and Plan (1) Acute pancreatitis Status: Acute Code(s): K85.90 - Acute pancreatitis without necrosis or infection, unspecified (2) Fatty liver disease, nonalcoholic Status: Acute Code(s): K76.0 - Fatty (change of) liver, not elsewhere classified (3) Anemia Status: Acute Code(s): D64.9 - Anemia, unspecified - Plan Acute pancreatitis, First episode, possibly drug induced (Ozempic -2 weeks ago) she is not daily or heavy alcohol drinker TG normal Confirmed on CT scan with some mild patchy parenchymal necrosis. No ductal dilation seen Had negative MRCP, lipase normal today Elevated LFTs, Normal AST/ALT today, slight elevation in ALP CT scan shows enlarged and infiltrated fatty liver and small ascites. liver workup pending Hepatitis panel negative DKA per [facility] 10/06/2017 patient had pancreatitis seems to be improving, possible fatty liver Patient had upper endoscopy today IMPRESSIONS: 1. Mild gastritis biopsy was done from the antrum otherwise normal exam 2. Retroflexed views revealed no abnormalities RECOMMENDATIONS: 1. Await biopsy results. Biopsy results will not be ready for 7-10 days. If you don't hear from us in two weeks, call our office for biopsy results. 2. Avoid NSAIDS 3. Continue PPI PATIENT CONDITION: stable DISPOSITION: Inpatient REPEAT EXAM: Colonoscopy as an outpatient NO IV hydration Pain meds per attending Monitor labs, IGG 4 pending Await liver workup PPI Anti-emetics
[2017-10-07] MEDS: Insulin NovoLIN Regular Correctional Sugar Inj SQ SCH ×3 (02:26→15:09)
[2017-10-07 08:08] LABS: Baso % (Auto) 0.6 % (0.0-2.0); Eos # (Auto) 0.2 th/mm3 (0.0-0.4); Eos % (Auto) 3.5 % (0.0-4.0); Hematocrit 31.8 % (35.0-46.0); Hemoglobin 10.8 gm/dL (11.6-15.3); Lymph # (Auto) 1.5 th/mm3 (1.0-4.8); Lymph % (Auto) 27.4 % (9.0-44.0); Mean Corpuscular HGB Conc 33.9 % (32.0-36.0); Mean Corpuscular Volume 91.4 fL (80.0-100.0); Mean Platelet Volume 8.9 fL (7.0-11.0); Mono # (Auto) 0.5 th/mm3 (0.0-0.9); Mono % (Auto) 9.7 % (0.0-8.0); Neut # (Auto) 3.2 th/mm3 (1.8-7.7); Neut % (Auto) 58.8 % (16.0-70.0); Platelet Count 188 th/mm3 (150-450); Red Blood Count 3.48 mil/mm3 (4.00-5.30); Red Cell Distribution Width 13.7 % (11.6-17.2); White Blood Count 5.5 th/mm3 (4.0-11.0)
[2017-10-07] MEDS: Gabapentin 300 MG Capsule PO SCH (08:52)
[2017-10-07] MEDS: Escitalopram 10 MG Tablet PO SCH (08:52)
[2017-10-07] MEDS: Senna/Docusate Sodium 8.6/50 MG Tablet PO SCH (08:52)
[2017-10-07] MEDS: Metoprolol Tartrate 50 MG Tablet PO SCH (08:53)
[2017-10-07] MEDS: Insulin Detemir Inj 1,000 UNIT/10 ML Vial SQ SCH (08:53)
[2017-10-07] MEDS: Pantoprazole Inj 40 MG Vial IV.PUSH SCH (08:53)
[2017-10-07 09:02] LABS: Alanine Aminotransferase 26 U/L (10-53); Albumin 2.4 g/dL (3.4-5.0); Alkaline Phosphatase 141 U/L (45-117); Anion Gap 10 meq/L (5-15); Aspartate Aminotransferase 35 U/L (15-37); Blood Urea Nitrogen 9 mg/dL (7-18); Calcium 8.3 mg/dL (8.5-10.1); Carbon Dioxide 26.9 meq/L (21.0-32.0); Chloride 103 meq/L (98-107); Glomerular Filtration Rate 79 mL/min (>89); Glucose,Random 243 mg/dL (74-106); Potassium 3.2 meq/L (3.5-5.1); Sodium 140 meq/L (136-145); Total Protein 6.1 g/dL (6.4-8.2)
[2017-10-07 09:56] VITALS: O2SAT 94
[2017-10-07 10:27] VITALS: RESP 20
--- NOTE | 2017-10-07 10:58 | P.DS ---
Date of admission: 10/01/17 17:52 Primary care physician: Shabbir Ludwig MD Brief History from admission: 62yF brought in by EMS for unresponsiveness. The patient has a history of insulin dependent diabetes, and as per her sister has "not been feeling well and vomiting" for the past 2 days. She says that the patient looked tired and dehydrated this morning, but when she came back from shopping this afternoon she found her on the floor unresponsive. EMS reports that the patient's glucose read "high" on their glucometer. Per ER documentation, sister reported no history of DKA in the past. Patient was noted to have severe hyperglycemia with blood glucose greater than 1000 and was in severe metabolic acidosis along with an elevated lactic acid. She was diagnosed to be in DKA as well and was started on insulin drip per DKA protocol. She has received 3 L normal saline bolus. She was accepted for admission by critical care medicine service. When I evaluated the patient in the ER she was minimally responsive in the ER stretcher, stuporous, not following commands. The patient is altered and unable to provide meaningful contribution to HPI or ROS. DS: Medications - Discharge Medications Prescriptions: pantoprazole 40 mg PO DAILY #30 tab DS: Summary Hospital Course: Patient was admitted. Underwent DKA protocol as well as therapeutic hydration and pain control for her pancreatitis. Had MRCP performed which was negative for any significant ductal dilatation. EGD was performed which showed mild antral gastritis. Patient was also noted to be hypoxic which was concluded to be secondary to pulmonary edema which improved with IV diuresis. Patient was eventually tolerating p.o. intake well and was on room air with no further dyspnea. Patient has met maximal benefit from hospitalization and is clinically stable for discharge. - Time Spent with Patient Total time spent providing and/or coordinating discharge services: Less than 30 minutes - Quality: VTE Deep Vein Thrombosis/Pulmonary Embolism Present on Admission: No Exam Vital signs: Vital Signs 10/06/17 12:00 10/06/17 15:53 10/06/17 16:00 Temperature 98.3 F 98.1 F Pulse Rate 67 96 H 93 H Respiratory Rate 18 18 Blood Pressure 165/80 H 159/77 H Pulse Oximetry 100 98 10/06/17 20:00 10/06/17 20:36 10/06/17 23:27 Temperature 97.9 F Pulse Rate 96 H Respiratory Rate 18 Blood Pressure 147/84 H Pulse Oximetry 99 97 96 10/07/17 00:00 10/07/17 04:00 10/07/17 08:00 Temperature 97.8 F 97.8 F 98.5 F Pulse Rate 91 H 84 76 Respiratory Rate 17 17 20 Blood Pressure 145/75 H 158/84 H 163/77 H Pulse Oximetry 96 96 93 L 10/07/17 09:55 Temperature Pulse Rate Respiratory Rate Blood Pressure Pulse Oximetry 94 L Intake & Output 10/06/17 10/07/17 10/07/17 18:59 06:59 18:59 Intake Total 540 / 540 360 / 360 Balance 540 / 540 360 / 360 Weight 78.6 kg Intake: Oral 240 / 240 360 / 360 Anesthesia Amount 300 / 300 Other: # Voids 4 2 Date of Last Bowel Movement 10/04/17 10/04/17 Results Procedures completed during hospitalization: EGD Pending studies at discharge: Pending at discharge 10/06/17 08:44 Surgical [PTH] Routine Labs on day of discharge: Labs from last 24 hours 10/07/17 10/07/17 10/07/17 07:35 07:35 05:39 WBC 5.5 RBC 3.48 L Hgb 10.8 L Hct 31.8 L MCV 91.4 MCH 31.0 MCHC 33.9 RDW 13.7 Plt Count 188 D MPV 8.9 Neut % (Auto) 58.8 Lymph % (Auto) 27.4 [place] % (Auto) 9.7 H Eos % (Auto) 3.5 Baso % (Auto) 0.6 Neut # (Auto) 3.2 Lymph # (Auto) 1.5 [place] # (Auto) 0.5 Eos # (Auto) 0.2 Baso # (Auto) 0.0 WBC Differential . Differential Comment Auto diff final Sodium 140 Potassium 3.2 L Chloride 103 Carbon Dioxide 26.9 Anion Gap 10 BUN 9 Creatinine 0.88 Estimated GFR 79 L POC Glucose 201 H Random Glucose 243 H D Calcium 8.3 L Magnesium Total Bilirubin 0.3 AST 35 ALT 26 Alkaline Phosphatase 141 H Total Protein 6.1 L Albumin 2.4 L 10/07/17 10/06/17 10/06/17 02:04 17:35 12:59 WBC RBC Hgb Hct MCV MCH MCHC RDW Plt Count MPV Neut % (Auto) Lymph % (Auto) [place] % (Auto) Eos % (Auto) Baso % (Auto) Neut # (Auto) Lymph # (Auto) [place] # (Auto) Eos # (Auto) Baso # (Auto) WBC Differential Differential Comment Sodium Potassium Chloride Carbon Dioxide Anion Gap BUN Creatinine Estimated GFR POC Glucose 215 H 330 H Random Glucose Calcium Magnesium 1.5 Total Bilirubin AST ALT Alkaline Phosphatase Total Protein Albumin 10/06/17 11:54 WBC RBC Hgb Hct MCV MCH MCHC RDW Plt Count MPV Neut % (Auto) Lymph % (Auto) [place] % (Auto) Eos % (Auto) Baso % (Auto) Neut # (Auto) Lymph # (Auto) [place] # (Auto) Eos # (Auto) Baso # (Auto) WBC Differential Differential Comment Sodium Potassium Chloride Carbon Dioxide Anion Gap BUN Creatinine Estimated GFR POC Glucose 181 H Random Glucose Calcium Magnesium Total Bilirubin AST ALT Alkaline Phosphatase Total Protein Albumin - Impressions ITS Impressions Head CT 10/01/17 15:53 CONCLUSION: 1. Negative CT Head non contrast. . Abdomen/Pelvis CT 10/02/17 00:00 CONCLUSION: 1. CT findings consistent with acute pancreatitis in the proper clinical setting. Some mild patchy parenchymal necrosis is also possible. No associated organized fluid collection. No perceptible ductal dilatation. 2. Small ascites. Diffuse mesenteric edema. 3. Enlarged and fatty infiltrated liver. 4. Consolidation of the visualized lung bases. Cholangiopancreatography MRI 10/04/17 00:00 CONCLUSION: 1. Acute pancreatitis. 2. No intra or extrahepatic biliary duct dilatation 3. Hepatic steatosis. Chest X-Ray 10/05/17 05:00 CONCLUSION: New bibasilar airspace opacity in a pattern which could represent pulmonary edema. There is a possible small left pleural effusion. Chest CTA 10/06/17 00:00 CONCLUSION: 1. Cardiomegaly with bilateral airspace disease and pleural effusions likely CHF. 2. No evidence for pulmonary embolism. Discharge Plan - Discharge Disposition Patient Disposition: 01 Discharge Home - Discharge Condition Condition: Critical - Discharge Order Discharge Orders: Discharge Order (Routine); Ordered 10/07/17 Ordered By: Sorin Bautista - Physicians Team Primary Care Provider: Shabbir Ludwig V Attending Provider: Sorin Bautista Other Providers: Lidya Daily MD
--- NOTE | 2017-10-07 12:03 | P.PNGI ---
Subjective Interval history: Pt resting in bed, tolerating diet. States wasn't able to eat too much because she was recently on liquid diet and has to get used to eating solid food again. Denies abdominal pain. Physical Exam Vital signs: Vital Signs 10/06/17 12:00 10/06/17 15:53 10/06/17 16:00 Temperature 98.3 F 98.1 F Pulse Rate 67 96 H 93 H Respiratory Rate 18 18 Blood Pressure 165/80 H 159/77 H Pulse Oximetry 100 98 10/06/17 20:00 10/06/17 20:36 10/06/17 23:27 Temperature 97.9 F Pulse Rate 96 H Respiratory Rate 18 Blood Pressure 147/84 H Pulse Oximetry 99 97 96 10/07/17 00:00 10/07/17 04:00 10/07/17 08:00 Temperature 97.8 F 97.8 F 98.5 F Pulse Rate 91 H 84 76 Respiratory Rate 17 17 20 Blood Pressure 145/75 H 158/84 H 163/77 H Pulse Oximetry 96 96 93 L 10/07/17 09:55 Temperature Pulse Rate Respiratory Rate Blood Pressure Pulse Oximetry 94 L Intake & Output 10/06/17 10/07/17 10/07/17 18:59 06:59 18:59 Intake Total 540 / 540 360 / 360 Balance 540 / 540 360 / 360 Weight 78.6 kg Intake: Oral 240 / 240 360 / 360 Anesthesia Amount 300 / 300 Other: # Voids 4 2 Date of Last Bowel Movement 10/04/17 10/04/17 - Constitutional no acute distress - Routine HEENT Exam Head: Present: normocephalic, atraumatic - Routine Respiratory Exam Absent: accessory muscle use - Routine Abdominal Exam Present: soft, normoactive bowel sounds. Absent: tenderness, distended - Routine Skin Exam Present: dry, warm - Routine Neurological Exam Present: alert, oriented X3 - Urinary Catheter Management Indwelling Urethral Catheter Cath placed during this visit: yes, but has since been removed by the nurse Reason for continuing: Decision to DC catheter Insertion date: 10/01/17 Insertion time: 16:07 Removal date: 10/04/17 Removal time: 08:30 Results - Labs CBC & Chem 7: 10/07/17 07:35 10/07/17 07:35 Laboratory Results - last 24 hr 10/06/17 10/06/1710/07/18 12:59 17:35 02:04 WBC RBC Hgb Hct MCV MCH MCHC RDW Plt Count MPV Neut % (Auto) Lymph % (Auto) [place] % (Auto) Eos % (Auto) Baso % (Auto) Neut # (Auto) Lymph # (Auto) [place] # (Auto) Eos # (Auto) Baso # (Auto) WBC Differential Differential Comment Sodium Potassium Chloride Carbon Dioxide Anion Gap BUN Creatinine Estimated GFR POC Glucose 330 H 215 H Random Glucose Calcium Magnesium 1.5 Total Bilirubin AST ALT Alkaline Phosphatase Total Protein Albumin 10/07/17 10/07/17 10/07/17 05:39 07:35 07:35 WBC 5.5 RBC 3.48 L Hgb 10.8 L Hct 31.8 L MCV 91.4 MCH 31.0 MCHC 33.9 RDW 13.7 Plt Count 188 D MPV 8.9 Neut % (Auto) 58.8 Lymph % (Auto) 27.4 [place] % (Auto) 9.7 H Eos % (Auto) 3.5 Baso % (Auto) 0.6 Neut # (Auto) 3.2 Lymph # (Auto) 1.5 [place] # (Auto) 0.5 Eos # (Auto) 0.2 Baso # (Auto) 0.0 WBC Differential . Differential Comment Auto diff final Sodium 140 Potassium 3.2 L Chloride 103 Carbon Dioxide 26.9 Anion Gap 10 BUN 9 Creatinine 0.88 Estimated GFR 79 L POC Glucose 201 H Random Glucose 243 H D Calcium 8.3 L Magnesium Total Bilirubin 0.3 AST 35 ALT 26 Alkaline Phosphatase 141 H Total Protein 6.1 L Albumin 2.4 L Microbiology 10/01/17 16:05 Blood - Peripheral Aerobic Blood Culture - Final No growth in 5 days 10/01/17 16:05 Blood - Peripheral Anaerobic Blood Culture - Final QNS - See aerobic report. 10/01/17 16:00 Blood - Peripheral Aerobic Blood Culture - Final No growth in 5 days 10/01/17 16:00 Blood - Peripheral Anaerobic Blood Culture - Final No growth in 5 days - Procedures EGD Assessment and Plan (1) Acute pancreatitis Status: Acute Code(s): K85.90 - Acute pancreatitis without necrosis or infection, unspecified (2) Fatty liver disease, nonalcoholic Status: Acute Code(s): K76.0 - Fatty (change of) liver, not elsewhere classified (3) Anemia Status: Acute Code(s): D64.9 - Anemia, unspecified - Plan Assessment: - Acute pancreatitis, First episode, possibly drug induced (Ozempic -2 weeks ago ) she is not daily or heavy alcohol drinker Triglycerides normal. Confirmed on CT scan with some mild patchy parenchymal necrosis. No ductal dilation seen Had negative MRCP, lipase normal today - Elevated LFTs, Normal AST/ALT today, slight elevation in ALP CT scan shows enlarged and infiltrated fatty liver and small ascites. Hepatitis panel negative. Hepatitis panel negative - DKA per CCM 10/06/2017 patient had pancreatitis seems to be improving, possible fatty liver Patient had upper endoscopy today EGD --> Mild gastritis biopsy was done from the antrum otherwise normal exam Retroflexed views revealed no abnormalities (10/07) Pt with significant improvement today, diet has been advanced. Pancreatitis noted to be likely medication induced. ROSSY and IgG 4 pending to rule out autoimmune pancreatitis. Liver work up pending. Plan: EGD biopsy pending DES IgG 4 and ROSSY pending Avoid NSAIDs Protonix Liver work up followed up in office Our service will sign off, please reconsult as needed Have pt follow up with GI after DC Pt has been seen and examined by myself and Dr. Tamez and this note is written on his behalf
[2017-10-07 13:07] VITALS: BP 190/83; TEMP 97.8
--- NOTE | 2017-10-07 13:33 | ECHRPT ---
Indication: HEART FAILURE CONCLUSIONS Normal left ventricular size. Wall thickness is normal. Normal wall motion. The left ventricular sy stolic function is normal with an estimated ejection fraction in the range of 60-65%. [id number] mitral valve regurgitation. There is trace to mild tricuspid valve regurgitation. The estimated pulmonary arterial pressure is 41 mmHg. BP: / HR: Rhythm: Technical Quality: FINDINGS LEFT VENTRICLE Normal left ventricular size. Wall thickness is normal. Normal wall motion. The left ventricular systolic function is normal with an estimated ejection fraction in the range of 60-65%. RIGHT VENTRICLE Normal right ventricular size and systolic function. LEFT ATRIUM The left atrial size is normal. RIGHT ATRIUM The right atrial size is normal. ATRIAL SEPTUM Normal atrial septal thickness without atrial level shunting by limited color doppler interrogation. AORTA The aortic root and proximal ascending aorta are normal in size on limited imaging. MITRAL VALVE [id number] mitral valve regurgitation. AORTIC VALVE Trileaflet aortic valve. No aortic valve stenosis or regurgitation. TRICUSPID VALVE There is trace to mild tricuspid valve regurgitation. The estimated pulmonary arterial pressure is 41 mmHg. PULMONARY VALVE The pulmonary valve is not well visualized. VESSELS The inferior vena cava is normal in size. PERICARDIUM No pericardial effusion. Blayne Henderson MD (Electronically Signed) Final Date:07 October 2017 13:31
[2017-10-07 15:53] LABS: Smooth Muscle Total Auto Abs Negative (Negative)
[2017-10-07 16:41] VITALS: PULSE 88
[2017-10-09 09:52] LABS: DS DNA Ab (Crithidia) NEGATIVE (NEGATIVE)
== END 2017-10-07 16:48 | disposition home or self-care (01) ==
LOC: NEPC 15:46 → NEDA 17:52 → HIMC 19:20 → N04 10-04 15:52
PROVIDERS: ADMIT Hospitalist; ATTEND Hospitalist
PROC: PANENDO (2017-10-06 10:01)